=== PATIENT | male | born 1950 | race Caucasian/White ===

== ENCOUNTER 2018-03-31 08:22 | Day surgery (SDC) | payer BC, OTHER ==
--- OUTSIDE RECORDS SUMMARY | 2018-03-31 08:30 | XMS REPORT ---
:1950 Author Organization e[employer] Care Team Providers Name Role Phone [place] Abel Provider Role Unavailable Allergies, Adverse Reactions, Alerts Substance Reaction Event Type N.K.D.A. Info Not Available Non Drug Allergy Problems Problem Type Condition Code Onset Dates Condition Status Problem Right sided sciatica M54.31 Active Problem Osteoarthritis of right knee, M17.11 Active unspecified osteoarthritis type Problem Pain, joint, knee, right M25.561 Active Assessment Osteoarthritis of right knee, M17.11 Active unspecified osteoarthritis type Assessment Right sided sciatica M54.31 Active Assessment Pain, joint, knee, right M25.561 Active Medications Medication Code Code Instructions Start End Status Dosage System Date Date Hydrocodone-Aceta [facility] 95842479475 7.5-325 MG Oral Active (Schedule minophen II Drug) TK 1 T PO TID Methocarbamol [facility] 37287733943 500 MG Oral Active TK 1 T PO BID Telmisartan-HCTZ [facility] 20284983441 80-12.5 MG Active 1 tablet Orally Once a day Gabapentin [facility] 56453772146 800 MG Orally Active 1 tablet Twice a day atorvastatin [facility] 99065483739 20mg Active 1 tablet by mouth at bedtime Bystolic [facility] 99463348521 5 MG Orally Active 1 tablet Once a day Montelukast [facility] 38604188266 10 MG Oral Active TK 1 T PO Sodium QD Levothyroxine [facility] 48798359508 25 MCG Oral Active TK 1 T PO Sodium TWICE WEEKLY. Duloxetine HCl [facility] 29398598892 60 MG Orally Active 1 capsule Once a day Results No Known Results Summary Purpose eClinicalWorks Submission
[2018-03-31 09:31] LABS: MPV 9.6 fL (7.6-11.3)
[2018-03-31 09:33] VITALS: BMI 43.3
[2018-03-31 10:22] LABS: Platelet Estimate ADEQ
--- NOTE | 2018-03-31 11:41 | RAD REPORT ---
EXAM DESCRIPTION: CT - Spine Lumbar Wo Con - 03/31/2018 11:21 am CLINICAL HISTORY: Radiculopathy. M5416 COMPARISON: Spine Lumbar W/Wo Cont dated 10/17/2016; MRI LUMBAR SPINE W O CON dated 10/19/2014; Lumbar Spine Wo Con dated 01/06/2018 TECHNIQUE: Axial noncontrast thin-section this level CT imaging of the lumbar spine was performed wi th coronal and sagittal re-formatted images. Lumbar puncture for intrathecal myelographic contrast in jection is separately reported. All CT scans are performed using dose optimization technique as appropriate and may include automated exposure control or mA/KV adjustment according to patient size. FINDINGS: No acute lumbar spine fracture seen. No aggressive marrow pattern or malalignment. Paraspinal tissues are normal in thickness. No paraspinal abscess or hematoma seen. L1-2: The posterior disc bulge is noted, mild and asymmetric to the left. Mild facet ligamentum flavu m hypertrophy is also present. Spinal central canal narrowing is mild. L2-3: Mild posterior disc bulge with asymmetric right paracentral/foraminal disc protrusion. Facet hy pertrophy is mild bilaterally with evidence of previous right hemilaminectomy. Central canal narrowin g is mild. Mild narrowing the anterior inferior aspect of the exit foramina is seen, greater on the r ight. L3-4: Mild posterior disc bulge is present asymmetric to the left with mild facet and ligamentum flav um hypertrophy. Central canal narrowing is mild to moderate with the thecal sac measuring 8 mm. Moder ate narrowing the anterior inferior aspects of both exit foramina seen. L4-5: Moderate posterior disc bulge with moderate facet and ligamentum flavum hypertrophy. Significan t central canal stenosis is suspected with the AP dimension of the canal measuring 5 mm. Narrowing of the anterior inferior aspects of both exit foramina is noted, mild. L5-S1: Prominent epidural fat is noted with mild central canal narrowing. IMPRESSION: Moderate to severe central canal stenosis at L4-5 suspected. Additional levels of spondylosis are fully detailed above.
--- NOTE | 2018-03-31 11:43 | RAD REPORT ---
EXAM DESCRIPTION: RAD - Myelography Lumbar - 03/31/2018 11:32 am CLINICAL HISTORY: M5416 COMPARISON: L Spine With Bending Views dated 09/04/2016; LUMBAR SPINE 3 VIEWS dated 06/07/2013; SPINE LUMBAR W OBLIQUE dated 11/26/2012; SPINE LUMBAR W OBLIQUE dated 04/16/2010 TECHNIQUE: The procedure, risks and alternatives to the procedure were discussed with the patient in detail. After answering all questions, both oral and written consent were obtained. Time-out procedu re was performed. The patient was placed in an oblique prone position on the fluoroscopic table. The skin of the lower back was prepped and draped in the usual sterile fashion. After anesthetizing the skin and deeper sof t tissues with 1% lidocaine, a 22 gauge needle was advanced into the thecal sac at the L4 level. Approximately 10 cc of Isovue 200M was injected into the subarachnoid space. The patient was then tra nsferred for the CT lumbar spine imaging. Total fluoro time: 2.9 seconds Images obtained: 5 IMPRESSION: Successful fluoroscopic guided lumbar puncture for myelographic contrast injection. CT myelography of the lumbar spine is separately reported.
[2018-03-31] MEDS ORDERED: HYDROCODONE/APAP 7.5/325 MG TAB ONE (12:10)
[2018-03-31 14:07] VITALS: BP 146/76; TEMP 97.3; O2SAT 97
== END 2018-03-31 14:15 | disposition home or self-care (01) ==
LOC: DS 08:22
PROVIDERS: ATTEND Specialist
PROC: B01BYZZ Fluoroscopy of Spinal Cord using Other Contrast (ICD-10-PCS; principal; 2018-03-31)
DX: M54.16 Radiculopathy, lumbar region (principal); I10 Essential (primary) hypertension; Z85.89 Personal history of malignant neoplasm of other organs and systems; M19.90 Unspecified osteoarthritis, unspecified site
CPT/HCPCS: 36415; 62304; 72131; 85049

== ENCOUNTER 2021-10-22 20:43 | Inpatient (IN) | payer OTHER ==
--- OUTSIDE RECORDS SUMMARY | 2021-10-22 20:47 | XMS REPORT | Continuity of Care Document ---
:1950 Author Organization [facility] t Address [address] [place] [address] Care Team Providers Name Role Phone Filipe Attending Clinician Unavailable Problems This patient has no known problems. Allergies, Adverse Reactions, Alerts This patient has no known allergies or adverse reactions. Medications Ordered Filled Start Stop Current Ordering Indication Dosage Frequency Signature Comments Components Source Medication Medication Date Date Medication? Clinician (SIG) Name Name Hydrocodone Hydrocodone Yes Abel (Schedule [facility] -[facility] -Acetaminop [place] [facility]) Sravani laura TK 1 T [facility] Methocarbam Methocarbam Yes Abel TK [address] [facility] [place] B[facility] Telmisartan Telmisartan Yes Abel [address] [facility] -HCTZ -HCTZ [place] [facility] Gabapentin Gabapentin Yes Abel [address] [facility] [place] [facility] atorvastati atorvastati Yes Abel [address] [facility] [place] by mouth [facility] Bystolic Bystolic Yes Abel [address] [place] [facility] Yes Abel TK [address] [facility] Sodium Sodium [place] QD [facility] Levothyroxi Levothyroxi Yes Abel TK [address] [facility] ne Sodium ne Sodium [place] TWICE Diann kes - [facility] Duloxetine Duloxetine Yes Abel [address] [facility] HCl HCl [place] [facility] Procedures This patient has no known procedures. Encounters Start End Encounter Admission Attending Care Care Encounter Source Date/Time Date/Time Type Type Clinicians Facility Department ID 2021-09-18 Outpatient Filipe [facility] [place] [id number] [facility] 2021-09-18 Outpatient Filipe [facility] 12[facility] [place] [id number] [facility] 2021-09-18 Outpatient Filipe [facility] 12[facility] [place] [id number] [facility] 2021-09-18 Outpatient Filipe [facility] 11[facility]58:47 [place] [id number] [facility] 2021-09-18 Outpatient Filipe [facility] [place] [id number] [facility] 2021-09-18 Outpatient Filipe [facility] 11[facility] [place] [id number] [facility] 2021-02-07 2021-02-07 Outpatient [facility] [id number] [facility] 2021-01-31 2021-01-31 Outpatient [facility] [id number] [facility] 2021-01-23 2021-01-23 Outpatient [facility] [id number] [facility] 2020-12-27 2020-12-27 Outpatient [facility] [id number] [facility] 2020-12-27 2020-12-27 Outpatient [facility] [id number] [facility] 2020-12-04 2020-12-04 Outpatient [facility] [id number] [facility] 2020-07-02 2020-07-02 Out[facility] [id number] [facility] 2020-06-18 2020-06-18 Outpatient [facility] [id number] [facility] 2020-06-13 2020-06-13 Outpatient [facility] [id number] [facility] 2018-03-10 2018-03-10 [facility] [id number] [facility] Results This patient has no known results.
[2021-10-22] MEDS ORDERED: NITROGLYCERIN 0.4 MG/TAB SL ONE (21:23)
[2021-10-22 21:45] LABS: Absolute Lymphocytes (CBC) 2.9 K/uL (0.7-4.9); Hematocrit 38.8 % (39.6-49.0); Lymphocytes % 27.8 % (15.3-44.8); MPV 9.1 fL (7.6-11.3); RBC Red Blood Cell Count 4.42 M/uL (4.33-5.43)
[2021-10-22 21:48] LABS: Blood Morphology Comment NOT SEEN (NOT SEEN); Platelet Estimate ADEQ; White Blood Cell Scan OK (OK)
[2021-10-22 21:52] LABS: Protime INR 0.92
--- NOTE | 2021-10-22 21:55 | RAD REPORT ---
EXAM DESCRIPTION: Naif Single View3 9:42 pm CLINICAL HISTORY: Chest pain COMPARISON: 2018 FINDINGS: The lungs appear clear of acute infiltrate. The heart is normal size IMPRESSION: No acute abnormalities displayed
[2021-10-22 22:02] LABS: ALT/SGPT 36 U/L (12-78); Albumin 3.8 g/dL (3.4-5.0); BUN Blood Urea Nitrogen 23 mg/dL (7-18); Bicarbonate 29 mmol/L (21-32); Bilirubin Total 0.6 mg/dL (0.2-1.0); Glucose Level 118 mg/dL (74-106); Lipase 72 U/L (73-393); Protein, Total 7.6 g/dL (6.4-8.2); Sodium Level 137 mmol/L (136-145)
[2021-10-22] MEDS ORDERED: MORPHINE 4 MG/ML SYR ONE (22:02)
[2021-10-22] MEDS ORDERED: MAGNES/ALUMIN/SIMET 30ML UCUP ONE (22:02)
[2021-10-22] MEDS ORDERED: LIDOCAINE VISCOUS 2% SOLN 15 ML UDC ONE (22:02)
[2021-10-22] MEDS ORDERED: ONDANSETRON 4 MG/2 ML VIAL ONE (22:02)
[2021-10-22 22:03] LABS: AST/SGOT 32 U/L (15-37); Bilirubin Direct < 0.1 mg/dL (0-0.2); Magnesium 2.4 mg/dL (1.8-2.4); Potassium 3.2 mmol/L (3.5-5.1)
[2021-10-22 22:07] LABS: Alkaline Phosphatase 53 U/L (45-117); NT PRO-BNP 311 pg/mL (<125)
--- NOTE | 2021-10-22 23:30 | EDPHYS ---
Physician Documentation [facility] Name: Tahir Alexandre Age: 71 yrs Sex: Male : 1950 Arrival Date: 10/22/2021 Time: 20:49 Bed 6 Private MD: ED Physician Carlos Mariee HPI: 10/22 20:57 This 71 yrs old Male presents to ER via Unassigned with complaints of Chest Pain. rn 20:57 The patient or guardian reports chest pain that is located primarily in the substernal rn area, epigastric area. Onset: 2 hour(s) ago. The pain radiates to abdomen. Associated signs and symptoms: Pertinent positives: abdominal pain, diaphoresis, Pertinent negatives: lower extremity pain, lower extremity swelling, syncope, vomiting. The chest pain is described as "pain". Duration: The patient or guardian reports a single episode, that is still ongoing. Modifying factors: The symptoms are alleviated by nothing. the symptoms are aggravated by exertion, sitting up. Severity of pain: At its worst the pain was moderate in the emergency department the pain is unchanged. The patient has not experienced similar symptoms in the past. The patient has not recently seen a physician. REports 2 hours of substernal chest pain, now radiating into upper abdomen, no fever/cough/sob. No vomiting/diarrhea. Loa like gas, took aspirin and gas-x without help so came in. . Historical: - Allergies: 21:18 No Known Allergies; ld1 - Home Meds: 21:20 duloxetine oral [Active]; Hydrocodone-Acetaminophen Oral [Active]; Vascepa oral ld1 [Active]; atorvastatin oral [Active]; gabapentin oral [Active]; Bystolic oral [Active]; telmisartan oral [Active]; levothyroxine oral [Active]; Chlorthalidone Oral [Active]; Methocarbamol Oral [Active]; - PMHx: 21:20 Hypercholesterolemia; Hyperthyroidism; ld1 - PSHx: 21:20 None; ld1 - Immunization history:: Adult Immunizations up to date, Client reports receiving the 2nd dose of the Covid vaccine. - Social history:: Smoking status: Patient denies any tobacco usage or history of. Patient/guardian denies using alcohol. - Family history:: not pertinent. - Hospitalizations: : No recent hospitalization is reported. ROS: 20:57 Constitutional: Negative for fever, chills, and weight loss, Eyes: Negative for injury, rn pain, redness, and discharge, Neck: Negative for injury, pain, and swelling, Cardiovascular: Negative for palpitations, and edema, Respiratory: Negative for shortness of breath, cough, wheezing, and pleuritic chest pain, Abdomen/GI: Negative for nausea, vomiting, diarrhea, and constipation, Back: Negative for injury and pain, : Negative for injury, bleeding, discharge, and swelling, MS/Extremity: Negative for injury and deformity, Skin: Negative for injury, rash, and discoloration, Neuro: Negative for headache, weakness, numbness, tingling, and seizure. Exam: 20:57 Constitutional: This is a well developed, well nourished patient who is awake, alert, rn and in no acute distress. Head/Face: Normocephalic, atraumatic. Eyes: Periorbital areas with no swelling, redness, or edema. Cardiovascular: Regular rate and rhythm. No pulse deficits. Respiratory: No increased work of breathing, no retractions or nasal flaring. Abdomen/GI: soft, mild epigastric tenderness, no rebound Skin: Warm, dry MS/ Extremity: Pulses equal, no cyanosis. Neurovascular intact. Full, normal range of motion. Equal circumference. Neuro: Awake and alert, GCS 15, oriented to person, place, time, and situation. 21:19 ECG was reviewed by the Attending Physician. rn Vital Signs: 21:15 BP 186 / 92; Pulse 59; Resp 15; Temp 98.6(TE); Pulse Ox 97% on R/A; Pain 8/10; ld1 22:07 BP 183 / 87; Pulse 56; Resp 12; Pulse Ox 96% on R/A; ld1 23:10 BP 182 / 73; Pulse 69; Resp 20 S; Pulse Ox 92% on R/A; al4 03/02 01:00 BP 159 / 74; Pulse 60; Resp 18; Pulse Ox 98% ; ll3 MDM: 03 20:49 Patient medically screened. rn 21:38 ED course: NO help from nitro. rn 23:27 Differential diagnosis: acute myocardial infarction, anxiety, coronary artery disease rn chest wall pain, costochondritis, esophagitis, gastritis, gastroesophageal reflux disease (GERD), pleurisy, pneumonia, pneumothorax, stable angina, thoracic aortic disection. Data reviewed: vital signs, nurses notes, lab test result(s), EKG, radiologic studies, CT scan, plain films, and as a result, I will admit patient. Counseling: I had a detailed discussion with the patient and/or guardian regarding: the historical points, exam findings, and any diagnostic results supporting the discharge/admit diagnosis, lab results, radiology results, the need for further work-up and treatment in the hospital. Response to treatment: There is no appreciated change of the patient's symptoms at this time, and as a result, I will admit patient. Admission orders: after a detailed discussion of the patient's condition and case, the admit orders are written by me. ED course: No acute findings in CT chest/abdomen/pelvis, specifically, no aneurysm or dissection, still reports chest pain, will admit for further evaluation.. 10/22 20:57 Order name: Basic Metabolic Panel; Complete Time: 22:15 rn 10/22 20:57 Order name: CBC with Diff; Complete Time: 21:54 rn 10/22 20:57 Order name: LFT's; Complete Time: 22:15 rn 10/22 20:57 Order name: Magnesium; Complete Time: 22:15 rn 10/22 20:57 Order name: NT PRO-BNP; Complete Time: 22:15 rn 10/22 20:57 Order name: PT-INR; Complete Time: 21:54 rn 10/22 20:57 Order name: Troponin HS; Complete Time: 22:15 rn 10/22 20:57 Order name: XRAY Chest (1 view); Complete Time: 22:15 rn 10/22 20:57 Order name: Lipase; Complete Time: 22:15 rn 10/22 20:57 Order name: CT Aorta for Dissection rn 10/22 20:57 Order name: SARS-COV-2 RT PCR (Document "Date of Onset" if Symptomatic); Complete Time: rn :10/22 21:48 Order name: CBC Smear Scan; Complete Time: 21:54 EDNY 10/22 23:48 Order name: US Abdomen Limited: Please eval gallbladder la1 10/22 20:57 Order name: EKG; Complete Time: 20:58 rn 10/22 20:57 Order name: Cardiac monitoring; Complete Time: 21:15 rn 10/22 20:57 Order name: EKG - Nurse/Tech; Complete Time: 21:15 rn 10/22 20:57 Order name: IV Saline Lock; Complete Time: 21:15 rn 10/22 20:57 Order name: Labs collected and sent; Complete Time: 22:24 rn 10/22 20:57 Order name: O2 Per Protocol; Complete Time: 21:15 rn 10/22 20:57 Order name: O2 Sat Monitoring; Complete Time: 21:15 rn 10/23 00:09 Order name: NPO; Complete Time: 00:15 la1 EC: Rate is 64 beats/min. Rhythm is regular. QRS Timber is Normal. MI interval is normal. QRS rn interval is normal. QT interval is normal. No Q waves. T waves are Normal. No ST changes noted. Clinical impression: NSR w/ Non-specific ST/T Changes. Reviewed by me. Administered Medications: 21:25 Drug: Nitroglycerin 0.4 mg Route: Sublingual; al4 21:30 Follow up: Response: No adverse reaction; Pain is unchanged, physician notified al4 22:06 Drug: morphine 4 mg Route: IVP; Site: right wrist; al4 23:00 Follow up: Response: No adverse reaction; RASS: Alert and Calm (0) al4 22:06 Drug: Zofran (Ondansetron) 4 mg Route: IVP; Site: right wrist; al4 23:00 Follow up: Response: No adverse reaction al4 22:07 Drug: GI Cocktail without - (Maalox Suspension 30 ml, Lidocaine Liquid 2 % 15 al4 ml) Route: PO; 23:00 Follow up: Response: No adverse reaction al4 10/23 00:27 Drug: Zosyn (piperacillin-tazobactam) 3.375 grams Route: IVPB; Infused Over: 60 mins; al4 Site: right forearm; 01:41 Follow up: Response: No adverse reaction; IV Status: Completed infusion al4 Disposition Summary: 10/22/21 23:29 Hospitalization Ordered Hospitalization Status: Observation rn Provider: Prince Shanice rn Location: Telemetry/MedSurg (observation) rn Condition: Stable rn Problem: new rn Symptoms: are unchanged rn Bed/Room Type: Standard rn Room Assignment: 223(10/23/21 00:30) padmini Diagnosis - Chest pain, unspecified rn - Abdominal pain, unspecified rn - Other cholelithiasis without obstruction rn Forms: - Medication Reconciliation Form rn - SBAR form rn Signatures: Dispatcher [employer] Bsii Lugo RN RN mw Nieto, Roman, MD MD rn Attema, Lee, [employer]-C [employer]-Cla1 Yumi Zhou RN RN ld1 Chuy Rose Corrections: (The following items were deleted from the chart) 00:30 10/22 23:29 sasha washington
--- NOTE | 2021-10-22 23:30 | ER ---
Nurse's Notes [facility] Name: Tahir Alexandre Age: 71 yrs Sex: Male : 1950 Arrival Date: 10/22/2021 Time: 20:49 Bed 6 Private MD: Diagnosis: Chest pain, unspecified;Abdominal pain, unspecified;Other cholelithiasis without obstruction Presentation: 10/22 21:15 Chief complaint: Patient states: c/o chest pain that began today at 1800 \T\ lower ld1 abdominal pain - thought it might be gas. Pt reports taking gas X and tums today to relieve the pain. Coronavirus screen: At this time, the client does not indicate any symptoms associated with coronavirus-19. Ebola Screen: No symptoms or risks identified at this time. Initial Sepsis Screen: Does the patient meet any 2 criteria? No. Patient's initial sepsis screen is negative. Does the patient have a suspected source of infection? No. Patient's initial sepsis screen is negative. Risk Assessment: Do you want to hurt yourself or someone else? Patient reports no desire to harm self or others. Onset of symptoms was October 22, 2021. 21:15 Method Of Arrival: Ambulatory ld1 21:15 Acuity: SHARLENE 3 ld1 Triage Assessment: 21:20 General: Appears in no apparent distress. uncomfortable, Behavior is cooperative, ld1 appropriate for age, anxious. Pain: Complains of pain in chest and suprapubic area Pain does not radiate. Pain currently is 9 out of 10 on a pain scale. Quality of pain is described as throbbing, Pain began gradually, Is intermittent. EENT: No signs and/or symptoms were reported regarding the EENT system. Neuro: Level of Consciousness is awake, alert, obeys commands, Oriented to person, place, time, situation, Appropriate for age. Cardiovascular: Capillary refill < 3 seconds Patient's skin is warm and dry. Cardiovascular: Rhythm is sinus rhythm. Respiratory: Airway is patent Respiratory effort is even, unlabored. GI: Abdomen is round non-distended. : No signs and/or symptoms were reported regarding the genitourinary system. Derm: No signs and/or symptoms reported regarding the dermatologic system. Musculoskeletal: Reports pain in chest. Historical: - Allergies: 21:18 No Known Allergies; ld1 - Home Meds: 21:20 duloxetine oral [Active]; Hydrocodone-Acetaminophen Oral [Active]; Vascepa oral ld1 [Active]; atorvastatin oral [Active]; gabapentin oral [Active]; Bystolic oral [Active]; telmisartan oral [Active]; levothyroxine oral [Active]; Chlorthalidone Oral [Active]; Methocarbamol Oral [Active]; - PMHx: 21:20 Hypercholesterolemia; Hyperthyroidism; ld1 - PSHx: 21:20 None; ld1 - Immunization history:: Adult Immunizations up to date, Client reports receiving the 2nd dose of the Covid vaccine. - Social history:: Smoking status: Patient denies any tobacco usage or history of. Patient/guardian denies using alcohol. - Family history:: not pertinent. - Hospitalizations: : No recent hospitalization is reported. Screenin:24 Abuse screen: Denies threats or abuse. Denies injuries from another. Nutritional ld1 screening: No deficits noted. Tuberculosis screening: No symptoms or risk factors identified. Fall Risk None identified. Assessment: 21:24 Pain: Complains of pain in chest Pain radiates to abdomen Pain currently is 9 out of 10 ld1 on a pain scale. Neuro: Level of Consciousness is awake, alert, obeys commands. Respiratory: Airway is patent Respiratory effort is even, unlabored. 21:24 Reassessment: See triage assessment. ld1 22:07 Reassessment: Patient appears in no apparent distress at this time. No changes from ld1 previously documented assessment. 22:20 General: Appears in no apparent distress. uncomfortable, Behavior is calm, cooperative. al4 Pain: Complains of pain in chest Pain began when he laid down for bed. Neuro: Level of Consciousness is awake, alert, obeys commands. Cardiovascular: Capillary refill < 3 seconds Patient's skin is warm and dry. Respiratory: Airway is patent Respiratory effort is unlabored, Respiratory pattern is regular. GI: Reports gas. Musculoskeletal: Range of motion: intact in all extremities. 23:07 Reassessment: Patient is alert, oriented x 3, equal unlabored respirations, skin al4 warm/dry/pink. 23:10 Reassessment: ERP gave permission for patient to have a few ice chips. al4 10/23 00:21 Reassessment: ERP gave permission for patient to go to restroom by wheelchair with al4 assistance. 00:22 Reassessment: ERP said no when asked if blood cultures needed to be drawn before al4 starting the ordered antibiotic. 01:00 Reassessment: Patient is alert, oriented x 3, equal unlabored respirations, skin al4 warm/dry/pink. Vital Signs: 10/22 21:15 BP 186 / 92; Pulse 59; Resp 15; Temp 98.6(TE); Pulse Ox 97% on R/A; Pain 8/10; ld1 22:07 BP 183 / 87; Pulse 56; Resp 12; Pulse Ox 96% on R/A; ld1 23:10 BP 182 / 73; Pulse 69; Resp 20 S; Pulse Ox 92% on R/A; al4 10/23 01:00 BP 159 / 74; Pulse 60; Resp 18; Pulse Ox 98% ; ll3 ED Course: 10/22 20:49 Patient arrived in ED. ja2 20:49 Carlos Mariee MD is Attending Physician. rn 21:15 Yumi Zhou RN is Primary Nurse. ld1 21:18 Triage completed. ld1 21:20 Arm band placed on right wrist. ld1 21:24 Patient has correct armband on for positive identification. Placed in gown. Bed in low ld1 position. Call light in reach. Side rails up X2. mail processor on. Pulse ox on. NIBP on. Door closed. Noise minimized. Warm blanket given. 21:24 No provider procedures requiring assistance completed. Missed attempt(s): 20 gauge in ld1 right forearm. Patient maintains SpO2 saturation greater than 95% on room air. 21:42 XRAY Chest (1 view) In Process Unspecified. EDMS 22:19 Inserted saline lock: 20 gauge in right forearm, using aseptic technique. ,using al4 aseptic technique. by NEGAR Eason. 22:40 CT Aorta for Dissection In Process Unspecified. EDMS 23:29 Prince Prasad MD is Hospitalizing Provider. rn 10/23 01:38 Patient admitted, IV remains in place. al4 Administered Medications: 10/22 21:25 Drug: Nitroglycerin 0.4 mg Route: Sublingual; al4 21:30 Follow up: Response: No adverse reaction; Pain is unchanged, physician notified al4 22:06 Drug: morphine 4 mg Route: IVP; Site: right wrist; al4 23:00 Follow up: Response: No adverse reaction; RASS: Alert and Calm (0) al4 22:06 Drug: Zofran (Ondansetron) 4 mg Route: IVP; Site: right wrist; al4 23:00 Follow up: Response: No adverse reaction al4 22:07 Drug: GI Cocktail without - (Maalox Suspension 30 ml, Lidocaine Liquid 2 % 15 al4 ml) Route: PO; 23:00 Follow up: Response: No adverse reaction al4 10/23 00:27 Drug: Zosyn (piperacillin-tazobactam) 3.375 grams Route: IVPB; Infused Over: 60 mins; al4 Site: right forearm; 01:41 Follow up: Response: No adverse reaction; IV Status: Completed infusion al4 Outcome: 10/22 23:29 Decision to Hospitalize by Provider. negar 10/23 01:37 Admitted to Med/surg accompanied by tech, room 223, Report called to NEGAR Trent by al4 NEGAR Wagoner Condition: stable Instructed on the need for admit, Demonstrated understanding of instructions. 01:40 Patient left the ED. al4 Signatures: Dispatcher [employer] EDMS Carlos Mariee MD MD rn Dibbern, Lauren, RN RN Zohreh Tinajero Lynsea, RN RN ll3 Chuy Rose4
--- NOTE | 2021-10-23 00:20 | P.HP ---
Certification for Inpatient Patient admitted to: Observation With expected LOS: <2 Midnights Patient will require the following post-hospital care: None Practitioner: I am a practitioner with admitting privileges, knowledge of patient current condition, hospital course, and medical plan of care. Services: Services provided to patient in accordance with Admission requirements found in Title 42 Section 412.3 of the Code of Federal Regulations Patient History Date of Service: 10/23/21 Reason for admission: Chest/epigastric pain History of Present Illness: 71-year-old male with history of hypertension, hyperlipidemia presents the emergency department for chest/epigastric pain. Patient reports pain began this evening around 630, reports he did have some cereal around 6 PM. Pain is radiating to the abdomen. Patient was evaluated in the emergency department his labs were significant for white blood cell count 10.4 hemoglobin 13.3 hematocrit 38.8 potassium 3.2 BNP [address] dissection protocol negative for any acute findings chest x-ray unremarkable abdominal ultrasound performed demonstrates small stone near the neck of the gallbladder with small amount of wall thickening. No pericholecystic fluid, CBD normal diameter. ED provider wishes to admit for further evaluation management epigastric/chest pain possible cholecystitis. Allergies No Known Allergies Allergy (Unverified 06/05/12 12:19) Home Medications: Atorvastatin Calcium 10 mg PO DAILY 03/31/18 Duloxetine HCl 60 mg PO DAILY 03/31/18 Gabapentin [Neurontin] 800 mg PO TID 03/31/18 Hydrocodone Bit/Acetaminophen [Hydrocodon-Acetaminoph 7.5-325] 1 tab PO TID 03/31/18 Levothyroxine [Synthroid*] 1 tab PO DAILY 03/31/18 Methocarbamol 500 mg PO BID 03/31/18 Montelukast [Singulair*] 10 mg PO DAILY 03/31/18 Nebivolol HCl [Bystolic*] 5 mg PO DAILY 03/31/18 Telmisartan/Hydrochlorothiazid [Telmisartan-Hctz 80-12.5 mg Tb] 1 tab PO DAILY 03/31/18 - Past Medical/Surgical History -: Hypertension -: Hyperlipidemia -: Neuropathy -: Laminectomy -: Carpal tunnel -: hernia repair Psychosocial/ Personal History: Patient lives at home with his - Family History Mother -: Cancer - Social History Smoking Status: Never smoker Alcohol use: No CD- Drugs: No Caffeine use: Yes Place of Residence: Home Review of Systems 10-point ROS is otherwise unremarkable Cardiovascular: Chest Pain Gastrointestinal: Abdominal Pain, As per HPI Physical Examination - Physical Exam General: Alert, In no apparent distress, Oriented x3, Obese HEENT: Atraumatic, PERRLA, Mucous membr. moist/pink, EOMI, Sclerae nonicteric Neck: Supple, 2+ carotid pulse no bruit, No LAD, Without JVD or thyroid abnormality Respiratory: Clear to auscultation bilaterally, Normal air movement Cardiovascular: Regular rate/rhythm, Normal S1 S2 Capillary refill: <2 Seconds Gastrointestinal: Normal bowel sounds, No rebound, No guarding, Tenderness (Mild epigastric, right upper quadrant tenderness) Musculoskeletal: No tenderness Integumentary: No rashes Neurological: Normal speech, Normal strength at 5/5 x4 extr, Normal tone, Normal affect Lymphatics: No axilla or inguinal lymphadenopathy - Studies Laboratory Data (last 24 hrs) 10/22/21 21:29: PT 10.6, INR 0.92 10/22/21 21:29: WBC 10.40, Hgb 13.3 L, Hct 38.8 L, Plt Count 204 10/22/21 21:29: Sodium 137, Potassium 3.2 L, BUN 23 H, Creatinine 1.20, Glucose 118 H, Magnesium 2.4, Total Bilirubin 0.6, AST 32, ALT 36, Alkaline Phosphatase 53, Lipase 72 L Assessment and Plan - Plan Assessment: Chest/epigastric pain suspect cholecystitis Rule out ACS Hypertension Hyperlipidemia Neuropathy Plan: Chest/epigastric pain suspect cholecystitis: N.p.o., IVF, Zosyn, general surgery consult in place. We will also trend troponin. Pain seems more likely to be related to suspected acute cholecystitis given epigastric tenderness and most the pain in the epigastric region. Rule out ACS: Initial troponin negative will repeat x2 CT dissection protocol negative for other acute findings. Hypertension: Obtain and continue home medications when appropriate Hyperlipidemia:Obtain and continue home medications when appropriate Neuropathy:Obtain and continue home medications when appropriate DVT PPX: SCD Code status: Full Discharge Plan: Home Plan to discharge in: 24 Hours - Advance Directives Does patient have a Living Will: No Does patient have a Durable POA for Healthcare: No - Code Status/Comfort Care Code Status Assessed: Yes (Full) Critical Care: No Time Spent Managing Pts Care (In Minutes): 55
[2021-10-23] MEDS ORDERED: PIPERACIL/TAZO 3.375 GM VIAL IV ONE (00:21)
[2021-10-23] MEDS ORDERED: NA CHLORIDE 0.9% 100 ML IV ONE (00:22)
[2021-10-23] MEDS ORDERED: SODIUM CHLORIDE 0.9% 10ML INJ IV PRN (01:47)
[2021-10-23] MEDS ORDERED: ONDANSETRON 4 MG/2 ML VIAL IV PRN (01:47)
[2021-10-23] MEDS: PIPER TAZO 3.375 GM in NA CHLORIDE 0.9% 100 ML IV SCH ×3 (01:47→17:05)
[2021-10-23] MEDS ORDERED: MORPHINE 4 MG/ML SYR IV PRN (01:56)
[2021-10-23] MEDS: D5 0.45 NS 1,000 ML IV SCH ×3 (02:22→15:07)
[2021-10-23] MEDS: KCL 20 MEQ/100 mL IVPB 20 MEQ/100 ML BAG IV SCH ×2 (02:22→04:34)
[2021-10-23] MEDS ORDERED: HYDROMORPHONE HCL 0.5 MG/0.5 ML INJ IV ONE ×2 (03:14→05:58)
[2021-10-23 03:32] VITALS: BMI 45.0
[2021-10-23 06:54] LABS: Absolute Lymphocytes (CBC) 1.1 K/uL (0.7-4.9); Hematocrit 39.6 % (39.6-49.0); MPV 8.5 fL (7.6-11.3); RBC Red Blood Cell Count 4.49 M/uL (4.33-5.43)
[2021-10-23 07:13] LABS: Albumin 3.8 g/dL (3.4-5.0); Bilirubin Total 0.9 mg/dL (0.2-1.0); Potassium 3.8 mmol/L (3.5-5.1); Protein, Total 7.7 g/dL (6.4-8.2); Troponin High Sensitivity 11.1 pg/mL (<58.9)
--- NOTE | 2021-10-23 07:42 | RAD REPORT ---
EXAM DESCRIPTION: US - Abdomen Exam Limited - 10/23/2021 12:11 am CLINICAL HISTORY: ABD PAIN COMPARISON: Small Bowel Series dated 09/13/2018; Angio Aorta For Dissection dated 10/22/2021 FINDINGS: The gallbladder demonstrates a tiny gallstone borderline thickening of the gallbladder wal l measuring 4 millimeters. The common bile duct is normal measuring 3 mm. The liver demonstrates no findings of intrahepatic biliary dilatation. IMPRESSION: Cholelithiasis with mild gallbladder wall thickening is nonspecific. No definite evidenc e of cholecystitis. If there is persistent clinical concern, could consider a HIDA scan.
[2021-10-23] MEDS: PANTOPRAZOLE 40 MG INJ IVP SCH ×2 (09:15→21:15)
[2021-10-23] MEDS: HYDROMORPHONE HCL 0.5 MG/0.5 ML INJ IV PRN ×3 (09:16→22:26)
--- NOTE | 2021-10-23 11:07 | EKG ---
Test Date: 2021-10-22 Test Time: 20:59:10 Noc Engineer: MEASUREMENT RESULTS: Intervals: Rate: 64 GA: 182 QRSD: 86 QT: 458 QTc: 472 Rosie: P: 53 GA: 182 QRS: 61 T: 68 INTERPRETIVE STATEMENTS: Normal sinus rhythm Cannot rule out Anterior infarct, age undetermined Abnormal ECG Compared to ECG 06/05/2012 15:06:39 Myocardial infarct finding now present Electronically Signed On 10-23-21 11:07:04 HEAD ATHLETIC TRAINER/STRENGTH COACH by Sarkis Downey
--- NOTE | 2021-10-23 11:07 | EKG ---
Test Date: 2021-10-22 Test Time: 21:10:00 Electrical Prospecting Engineer: ALIREZA MEASUREMENT RESULTS: Intervals: Rate: 62 WV: 164 QRSD: 88 QT: 470 QTc: 477 Mcconnell: P: 56 WV: 164 QRS: 57 T: 71 INTERPRETIVE STATEMENTS: Normal sinus rhythm Cannot rule out Anterior infarct, age undetermined Abnormal ECG Compared to ECG 10/22/2021 20:59:10 No significant changes Electronically Signed On 10-23-21 11:07:03 ENGRAVER AUTOMATIC by Sarkis Downey
--- NOTE | 2021-10-23 11:32 | RAD REPORT ---
EXAM DESCRIPTION: CT - Angio Aorta For Dissection - 10/23/2021 6:31 am CLINICAL HISTORY: Abd pain;Chest pain COMPARISON: None. TECHNIQUE: CT CHEST ABDOMEN PELVIS ANGIOGRAPHY WITH IV CONTRAST on 10/22/2021 8:57 PM DATA ADMINISTRATOR. MIPS recons tructions were generated. This exam was performed according to our departmental dose-optimization program, which includes autom ated exposure control, adjustment of the mA and/or kV according to patient size and/or use of iterati ve reconstruction technique. FINDINGS: Vascular: Thoracic aorta is normal in course and caliber without aneurysm or dissection. P ulmonary arteries are adequately opacified without acute or chronic filling defects. Abdominal aorta is normal in course and caliber without aneurysm. Pelvic arteries are patent without aneurysm or occl usion. Chest: The heart is normal in size. There is no pericardial effusion. Intrathoracic lymph nodes are n ot enlarged. There is no pleural effusion, pleural thickening or pneumothorax. Central airways are patent. Lungs a re clear with no consolidation, mass or interstitial lung disease. Abdomen: There is a tiny cyst in the upper aspect of the right lobe of the liver. There is no biliary dilatation. Gallbladder is normal in appearance. Stomach is distended with fluid. The pancreas and s pleen are normal in appearance. Adrenal glands are normal. Kidneys are mildly atrophic. There is no free air. There is no retroperitoneal adenopathy. Pelvis: There is mild left colonic diverticulosis. The urinary bladder is grossly distended and is lo bulated, measuring 21.5 cm in greatest dimension. There is no free fluid. There is a small fat-contai brian right inguinal hernia. Appendix is normal. Skeleton: There are no acute osseous findings. No suspicious bony lesions. IMPRESSION: No aortic dissection or aneurysm. No pulmonary embolus. No pneumonia. Distended urinary bladder. Electronically signed by: Shayne Justice MD 10/22/2021 11:18 PM DATA ADMINISTRATOR Due to temporary technical issues with the PACS/Fluency reporting system, reports are being signed by the in house radiologist without review as a courtesy to ensure prompt reporting. The interpreting r adiologist is fully responsible for the content of the report.
--- NOTE | 2021-10-23 12:28 | CON ---
Date of Consultation: 10/23/2021 Brief History Of Present Illness: The patient is a 71-year-old male with history of hypert ension, hyperlipidemia, who presents to the Emergency Department with complaints of retrosternal ches t pain. He states that the pain began approximately 6:30 p.m. and was constant. He said he ate cere al about the same time that the pain began, but it had gotten severe, substernal, crushing chest pain , and ultimately when the pain with this at worst, he felt radiation and enlargement of the pain to i nclude the epigastric area. There was no other radiation to his back or to his right or left lower q uadrants. He has never had similar episodes before or in the past. The pain was only alleviated by significant pain medication administration in the ER. He has not had any surgical history other than hernia surgery before or in the past with respect to abdominal surgery. He currently feels signific antly improved. He had minimal nausea when the pain was severe, but he believes this is related to t he pain. He had no vomiting. No change in bowel or bladder habits. Again, he has never had similar episodes before or in the past. No sick contacts. No recent travel. No food exposures he is aware of. Allergies: NO KNOWN DRUG ALLERGIES. Home Medications: Include atorvastatin, duloxetine, Neurontin, hydrocodone, Synthroid, methocarbamol , Singulair, Bystolic, telmisartan. Past Medical History: Significant for hypertension, hyperlipidemia, neuropathy. Past Surgical History: Includes laminectomy, carpal tunnel surgery and inguinal hernia surgery as a child he believes. Social History: He lives at home with . He denies smoking, alcohol, recreational drug use. Review of Systems: Ten-point review of systems other than HPI, denies. Physical Examination: Vital Signs: Blood pressure was 120/53, pulse 68, respiratory rate 18, temperature 97.3, SpO2 96% on room air. General: At the time of my examination; he is awake, alert, and oriented. Psychiatric: He is appropriate, conversive. HEENT: Otherwise normocephalic. His sclerae were anicteric. His mucous membranes are moist. Oroph arynx is clear. Neck: Supple without JVD. Chest: Normal expansion and excursion. Cardiovascular: Regular rate and rhythm. Pulmonary: Clear to auscultation bilaterally. Abdomen: Soft, nontender, nondistended. No rebound. No guarding. No focal peritonitis. Cai si gn was negative. Extremities: No clubbing, cyanosis, or edema. Skin: Warm and dry. Laboratory Data: Laboratory exam was performed. Laboratory exam reveals a white blood cell count of 15.1, hemoglobin was 13.3, hematocrit 39.6, platelet count was 213. His neutrophils were 83%. His sodium 135, potassium 3.8, chloride 99, carbon dioxide 30, BUN 18, creatinine 1.17. His glucose was 152. ProBNP was 311. Lipase was 72. COVID was negative. He had imaging performed, which included an ultrasound which showed cholelithiasis with mild gallbladder wall thickening, nonspecific. No def initive evidence of cholecystitis, consider HIDA scan. He additionally had a CT scan dissection prot ocol on admission, officially read. CT dissection protocol negative for any acute findings. Chest x -ray unremarkable. Abdominal ultrasound performed as described. I am unable to get the official dic tation as the computer system is unable to pull the CT dissection protocol, but there were no finding s on the biliary system and no acute dissection described. Assessment And Plan: This is a 71-year-old male, who comes in with substernal chest pain, currently retrosternal. 1.Medical management. 2.Recommend Cardiology consultation and cardiovascular evaluation prior to any consideration for julissa gical intervention. 3.Should the patient's cardiac status be normal, we will get HIDA scan at that point to see if the p atient's pain is likely due to a possible biliary/cholecystitis picture. I have explained the risks, benefits, and alternatives of the above stated plan. The patient agrees to proceed as indicated. 4.N.p.o. status to continue. JONI/POLO Voice ID: [id number] Report ID: [id number]
[2021-10-23 13:30] LABS: Potassium 3.4 mmol/L (3.5-5.1)
[2021-10-23 18:11] LABS: Urine Appearance CLEAR (Clear); Urine Bilirubin NEGATIVE (Negative); Urine Blood NEGATIVE (Negative); Urine Color YELLOW (Yellow); Urine Glucose NEGATIVE (Negative); Urine Protein 1+ (Negative); Urine Specific Gravity >=1.030 (1.005-1.030); Urine Urobilinogen 0.2 mg/dL (0.2-1.0); Urine pH 6.5 (5.0-7.0)
[2021-10-23 18:20] LABS: Urine Microscopic Reflex ORDER UMIC
[2021-10-23 18:34] LABS: Urine Bacteria <20 /HPF (NONE SEEN); Urine RBC <5 /HPF (NONE SEEN)
[2021-10-23] MEDS ORDERED: ACETAMINOPHEN 500 MG TAB PO ONE (21:10)
[2021-10-24] MEDS: PIPER TAZO 3.375 GM in NA CHLORIDE 0.9% 100 ML IV SCH ×3 (00:02→18:03)
[2021-10-24 06:08] LABS: Absolute Lymphocytes (CBC) 1.2 K/uL (0.7-4.9); Hematocrit 35.4 % (39.6-49.0); Lymphocytes % 7.7 % (15.3-44.8); MPV 8.3 fL (7.6-11.3); RBC Red Blood Cell Count 4.02 M/uL (4.33-5.43)
[2021-10-24 06:26] LABS: Albumin 3.3 g/dL (3.4-5.0); Bilirubin Total 1.7 mg/dL (0.2-1.0); Potassium 3.2 mmol/L (3.5-5.1)
[2021-10-24] MEDS: LEVOTHYROXINE SOD 0.1 MG TAB PO SCH (07:30)
[2021-10-24] MEDS: icosapent ethyL 1 GM CAP PO SCH (09:00)
[2021-10-24] MEDS: NEBIVOLOL HCL 5 MG TAB PO SCH (09:00)
[2021-10-24] MEDS: GABAPENTIN 400 MG CAP PO SCH ×3 (09:00→20:22)
[2021-10-24] MEDS: methocarbamoL 500 MG TAB PO SCH ×2 (09:00→20:24)
[2021-10-24] MEDS ORDERED: POTASSIUM CL SA 10 MEQ TAB PO ONE ×2 (09:00→22:23)
[2021-10-24] MEDS: DULOXETINE 30 MG CAP PO SCH (09:00)
[2021-10-24] MEDS: HYDROCODONE/APAP 7.5/325 MG TAB PO SCH ×3 (09:00→20:22)
[2021-10-24] MEDS: PANTOPRAZOLE 40 MG INJ IVP SCH ×2 (09:00→20:24)
--- NOTE | 2021-10-24 09:46 | RAD REPORT ---
EXAM DESCRIPTION: NM - Hepatobiliary System Imagin - 10/24/2021 9:32 am CLINICAL HISTORY: chest pain, gallbladder stone COMPARISON: Abdomen Exam Limited dated 10/23/2021 TECHNIQUE: The patient was administered approximately 7 mCi Tc99m Choletec. Imaging of the right upp er quadrant was performed initially for up to 60 minutes. The patient refused to continue the study. FINDINGS: Normal hepatic uptake and excretion with appropriate clearance of background blood pool ac tivity. Normal visualization of biliary and small bowel activity. The gallbladder is not visualized within the initial imaging period. The patient refused to continue the study. IMPRESSION: Patient cystic duct and patent sphincter of Oddi. The gallbladder is not visualized with in the initial imaging period. The patient refused to continue the examination. No CCK was administered.
[2021-10-24] MEDS ORDERED: FENTANYL CITR 100 MCG/2 ML ONE (10:10)
[2021-10-24] MEDS ORDERED: propofoL 200 MG/20 ML VIAL IV ONE (10:10)
[2021-10-24] MEDS ORDERED: LIDOCAINE 1% MPF 5 ML VIAL ONE (10:10)
[2021-10-24] MEDS ORDERED: MIDAZOLAM HCL 2 MG/2 ML INJ ONE (10:10)
[2021-10-24] MEDS ORDERED: ONDANSETRON 4 MG/2 ML VIAL ONE (10:13)
[2021-10-24] MEDS ORDERED: ROCURONIUM 50 MG/5 ML VIAL IV ONE (10:13)
[2021-10-24] MEDS: BUPIVACAINE 0.25% PF 10 ML VIAL ONE ×2 (10:29→11:21)
[2021-10-24] MEDS: Ringers Lactate 1,000 ML IV ONE ×2 (10:49→11:16)
[2021-10-24] MEDS ORDERED: EPHEDRINE SULF 50 MG/ML VIAL ONE (11:39)
[2021-10-24] MEDS ORDERED: Ringers Lactate 1,000 ML IV ONE (12:37)
[2021-10-24] MEDS ORDERED: MORPHINE 10 MG/ML VIAL ONE (12:40)
[2021-10-24] MEDS ORDERED: KETOROLAC 30 MG/ML INJ ONE (13:02)
--- NOTE | 2021-10-24 13:02 | P.OP ---
Preoperative diagnosis: Acute Cholecystitis Postoperative diagnosis: Acute Gangrenous Cholecystitis Primary procedure: Laparoscopic subtotal cholecystectomy Secondary procedure: Indocyanin Green intraoperative cholangiography Anesthesia: GETA + Local Estimated blood loss: <10cc Specimen: gallbladder Findings: gangrenous changes, Complications: None Drain(s): GINNY drain (10 mm Flat GINNY) Implants: Amaya clotting powder Transferred to: Recovery Room Condition: Good
[2021-10-24] MEDS ORDERED: POTASSIUM 25 MEQ EFFERV TAB PO ONE (15:00)
--- NOTE | 2021-10-24 15:07 | P.PN ---
Subjective Date of Service: 10/24/21 Chief Complaint: Chest/epigastric pain Subjective: Improving, Other (Patient could not tolerate HIDA scan. He was taken straight to the OR for lap emelyn.) Physical Examination - Vital Signs Temperature: 98.5 F Blood Pressure: 104/45 Pulse: 85 Respirations: 16 Pulse Ox (%): 92 - Physical Exam General: In no apparent distress, Cooperative, Other HEENT: Atraumatic, Normocephalic Musculoskeletal: No clubbing, No swelling, No contractures, No erythema Neurological: Normal speech, Normal affect Assessment And Plan - Current Problems (Diagnosis) (1) Abdominal pain Current Visit: Yes Status: Acute (2) Chest pain Current Visit: Yes Status: Acute Physician Review Additional Text: 10/24/21 15:05 Assessment Patient is a 71-year-old male with history of hypertension, hyperlipidemia. He presented to the ER with epigastric and thoracic chest pain. His ACS work-up was unremarkable. His troponins were negative. Was seen by general surgery due to concern of possible cholecystitis on abdominal imaging. He underwent a laparoscopic cholecystectomy on 10/24. Abdominal pain chest pain cholelithiasis/cholecystitis morbid obesity plan: Multimodal pain regimen continue Zosyn. WBC is still elevated repeat CBC tomorrow We will monitor patient overnight and possible discharge tomorrow antibiotics duration as per general surgery
[2021-10-24] MEDS: D5 0.45 NS 1,000 ML IV SCH ×2 (17:47)
[2021-10-24] MEDS: ATORVASTATIN 20 MG TAB PO SCH (20:22)
--- NOTE | 2021-10-24 23:36 | OP ---
Date of Procedure: 10/24/2021 Surgeon: Carlos Constantino MD, Preoperative Diagnosis: Acute cholecystitis. Postoperative Diagnosis: Acute gangrenous cholecystitis. Procedure: 1.Laparoscopic subtotal cholecystectomy. 2.Indocyanine green intraoperative cholangiography. Anesthesia: General endotracheal plus local with 0.25% Marcaine. Estimated Blood Loss: Less than 10 mL. Specimen: Gallbladder. Findings: 1.Gangrenous cholecystitis. 2.Indocyanine green did not enter the gallbladder and the cystic duct was not visualized despite ove r an hour of waiting for ICG permeation. However, the liver was well perfused and the intestines wer e lit up with ICG upon examination. Complications: None. Drains: A 10 mm flat GINNY drain in the subhepatic space. Implants: Amaya clotting powder sprayed in the subhepatic space. Disposition: The patient was transferred to recovery room in good condition. Procedure In Detail: After informed was obtained, the patient was brought to the operating room, pre pped and draped in the usual sterile fashion. After adequate anesthesia achieved, the supraumbilical area was anesthetized with 0.25% Marcaine and sharply incised. A 5 mm trocar was placed under direc t visualization without complication. There was no injury to vital structures upon entry into the ab domen. The abdomen was insufflated to 15 mmHg. I then placed 3 additional trocars, 1 in the epigast rium and 2 in the right upper quadrant. These are similarly anesthetized and sharply incised. A 5 m m trocar was placed under direct visualization without complication. The umbilical trocar was then u psized to a 12 mm under direct visualization without complication. The patient positioned in head up , right side up position. The gallbladder found to be completely encased in omentum. There were asiya e bilious material in the subhepatic space consistent with a perforation of the gallbladder. I sucti oned out this material. Attempts to grasp the gallbladder were unsuccessful. The liver was found to be quite high under the ribcage, making visualization difficult as there was a very small access for visualization of the gallbladder. The gallbladder could not be grasped and as such a decompression needle was brought in and placed in the fundus of the gallbladder. The gallbladder was decompressed at this time. At this point, I then placed a ratcheted grasper on the fundus of the gallbladder and placed it towards the patient's right shoulder. Dissection continued down to remove the firm adhesio ns off the anterior surface of the gallbladder using a combination of blunt dissection as well as maya ctrocautery. After this was done, a large inflammatory thickened rind was noted over the gallbladder . I attempted indocyanine green visualization. The gallbladder had no visualization of the indocyan ine green despite multiple attempts throughout the procedure, which was well over an hour post inject ion of ICG. I saw what appeared to be evidence of common duct near the hilar plate. However, it was faint at best as the patient has significant inflammatory changes and significant adiposity obscurin g the view of the indocyanine green. As such using careful dissection, I opened up the inflammatory rind near the Josh's pouch in the gallbladder. I dissected circumferentially around and found 2 structures, however, 1 structure appeared to be the gallbladder, which continued to go deeper towards the common duct junction where significant inflammatory changes and scarring was evident. However, I was able to visualize the cystic artery at this point, crossing over the top of the gallbladder rashad ction. At this point, I skeletonized the cystic artery and placed double titanium clips on the proxi mal side and on the distal side of the cystic artery and ligated the structure with Endo Kati. At this point, careful dissection was performed to which point, I felt that a safe continued dissection could not be achieved despite multiple blunt dissection attempts and using suction, irrigation, manip ulation. I felt that the gallbladder was gangrenous and friable, tearing quite easily and as such I felt that it would be dangerous to continue to proceed as there might be a common duct injury. At th is point, I encircled the distal aspect of the gallbladder near the Josh's pouch using gentle primitivo nt dissection circumferentially around. I then placed clips across this distal aspect of the gallbla dder and ligated the gallbladder at the Josh's pouch, near the cystic duct gallbladder junction, leaving a small residual stump of gallbladder at this point. I then ligated this using Endo Kati. At this point, I then placed an additional clip at this junction and placed an Endoloop of Vicryl ar ound the distal aspect of the stump and secured it at this point. Indocyanine green was utilized aga in and I saw no visualization of the normal anatomic structures at this point. I then opted to remov e the gallbladder from the subhepatic space and the gallbladder fossa, placed it in EndoCatch bag, an d removed through the umbilical trocar. I irrigated the area copiously. Good hemostasis was achieve d without any additional hemostatic maneuvers. However, due to the significant gangrenous change to the gallbladder, I opted to do 2 additional measures and that was to spray Amaya into the subhepatic space as well as to place a 10 mm flat GINNY drain brought out through the most lateral right abdominal trocar. This was brought in and the 10 mm GINNY was placed in the subhepatic space. No hemostatic josh sures were required and the trocar was removed and the drain secured to the skin at this point. I di d not appreciate any spillage of bile at this point, at the end of the procedure and had the drain si tting right next to the cystic duct junction. No hemostatic measures were required as well. At this point, I opted to place the patient back in a neutral position. I irrigated the area copiously and then repositioned it multiple times in head up position and inspected for any leakage of bile or bloo d, which was not appreciated throughout. I irrigated and suctioned out the abdomen until completely clear. Irrigation was suctioned out. The patient was positioned back into neutral position and the umbilical trocar site was closed using a Juan-Alysha suture passer with 0 Vicryl in interrupted f ashion with good approximation of tissues. The remaining trocars were then removed under direct visu alization without evidence of complication. All skin incisions were copiously irrigated and closed w ith a 4-0 Monocryl in a running fashion and Dermabond was placed on top. The patient tolerated the p rocedure without evidence of complication and transferred back in good condition. All counts were correct at the end of the case. TK/MODL Voice ID: [id number] Report ID: [id number]
[2021-10-25] MEDS: D5 0.45 NS 1,000 ML IV SCH ×2 (00:29→22:04)
[2021-10-25] MEDS: PIPER TAZO 3.375 GM in NA CHLORIDE 0.9% 100 ML IV SCH ×3 (00:30→17:03)
[2021-10-25] MEDS: LEVOTHYROXINE SOD 0.1 MG TAB PO SCH (05:44)
[2021-10-25 06:36] LABS: Hematocrit 31.8 % (39.6-49.0); Lymphocytes % 10.4 % (15.3-44.8); MPV 8.7 fL (7.6-11.3); RBC Red Blood Cell Count 3.55 M/uL (4.33-5.43)
[2021-10-25 06:51] LABS: Albumin 2.6 g/dL (3.4-5.0); Potassium 3.4 mmol/L (3.5-5.1)
--- NOTE | 2021-10-25 08:58 | P.PN ---
Subjective Date of Service: 10/25/21 Chief Complaint: Chest/epigastric pain Subjective: Improving (Patient feels much better.) Physical Examination - Vital Signs Temperature: 97.5 F Blood Pressure: 121/61 Pulse: 78 Respirations: 17 Pulse Ox (%): 95 - Physical Exam General: Alert, In no apparent distress, Oriented x3, Cooperative Respiratory: Clear to auscultation bilaterally, Normal air movement Cardiovascular: Regular rate/rhythm Gastrointestinal: Other (soft, mild appropriate TTP, ND, incisions clean and dry, GINNY serous.) Assessment And Plan - Current Problems (Diagnosis) (1) Acute gangrenous cholecystitis Current Visit: Yes Status: Acute Plan: - post op instructions reviewed - GINNY drain teaching - bland diet reviewed - lifting restrictions reviewed - see discharge information - augmentin x 7 days - pain meds per Dr. Mandel
[2021-10-25] MEDS ORDERED: POTASSIUM CL SA 10 MEQ TAB PO ONE ×3 (09:00→16:00)
[2021-10-25] MEDS: icosapent ethyL 1 GM CAP PO SCH (09:30)
[2021-10-25] MEDS: NEBIVOLOL HCL 5 MG TAB PO SCH (09:30)
[2021-10-25] MEDS: HYDROCODONE/APAP 7.5/325 MG TAB PO SCH ×3 (09:31→22:03)
[2021-10-25] MEDS: DULOXETINE 30 MG CAP PO SCH (09:32)
[2021-10-25] MEDS: GABAPENTIN 400 MG CAP PO SCH ×3 (09:32→22:03)
[2021-10-25] MEDS: methocarbamoL 500 MG TAB PO SCH ×2 (09:33→22:05)
[2021-10-25] MEDS: PANTOPRAZOLE 40 MG INJ IVP SCH ×2 (09:33→22:02)
--- NOTE | 2021-10-25 09:58 | P.DS ---
Admission Date: 10/23/21 Discharge Date: 10/25/21 Disposition: ROUTINE DISCHARGE Discharge Condition: GOOD Reason for Admission: Chest/epigastric pain - Problems (1) Abdominal pain Current Visit: Yes Status: Acute (2) Chest pain Current Visit: Yes Status: Acute Hospital Course: Patient is a 71-year-old male with history of hypertension, hyperlipidemia. He presented to the ER with epigastric and thoracic chest pain. His ACS work-up was unremarkable. His troponins were negative. He was seen by general surgery due to concern of possible cholecystitis on abdominal imaging. He underwent a laparoscopic cholecystectomy on 10/24. He can be discharged on a 7-day course of Augmentin, and a GINNY drain. He will follow up with Surgery next week. Vital Signs/Physical Exam: Temp Pulse Resp BP Pulse Ox 97.5 F 80 17 125/64 95 10/25/21 08:58 10/25/21 09:30 10/25/21 08:58 10/25/21 09:30 10/25/21 08:58 General: Alert, In no apparent distress, Cooperative HEENT: Atraumatic, Normocephalic Respiratory: Clear to auscultation bilaterally, Normal air movement Cardiovascular: Regular rate/rhythm, Normal S1 S2, Abnormal S3 Gastrointestinal: Soft and benign, Other (GINNY drain), Tenderness Musculoskeletal: No clubbing, No swelling, No contractures Neurological: Normal speech, Normal affect Laboratory Data at Discharge: WBC 9.30 K/uL (4.3-10.9) D 10/25/21 06:15 Hgb 10.7 g/dL (13.6-17.9) L 10/25/21 06:15 Hct 31.8 % (39.6-49.0) L 10/25/21 06:15 Plt Count 136 K/uL (152-406) L D 10/25/21 06:15 PT 10.6 SECONDS (9.5-12.5) 10/22/21 21:29 INR 0.92 10/22/21 21:29 Sodium 136 mmol/L (136-145) 10/25/21 06:15 Potassium 3.4 mmol/L (3.5-5.1) L 10/25/21 06:15 BUN 18 mg/dL (7-18) 10/25/21 06:15 Creatinine 1.15 mg/dL (0.55-1.3) 10/25/21 06:15 Glucose 119 mg/dL (74-106) H 10/25/21 06:15 Magnesium 2.4 mg/dL (1.8-2.4) 10/22/21 21:29 Total Bilirubin 1.0 mg/dL (0.2-1.0) 10/25/21 06:15 AST 37 U/L (15-37) 10/25/21 06:15 ALT 44 U/L (12-78) 10/25/21 06:15 Alkaline Phosphatase 41 U/L (45-117) L 10/25/21 06:15 Lipase 72 U/L (73-393) L 10/22/21 21:29 Home Medications: Atorvastatin Calcium 20 mg PO BEDTIME 03/31/18 Duloxetine HCl 60 mg PO DAILY 03/31/18 Gabapentin [Neurontin] 800 mg PO TID 03/31/18 Hydrocodone Bit/Acetaminophen [Hydrocodon-Acetaminoph 7.5-325] 7.5 tab PO TID 03/31/18 Levothyroxine [Synthroid*] 100 mcg PO DAILY 03/31/18 Methocarbamol 500 mg PO BID 03/31/18 Nebivolol HCl [Bystolic*] 10 mg PO DAILY 03/31/18 Chlorthalidone 25 mg PO DAILY 10/23/21 Telmisartan 50 mg PO DAILY 10/23/21 icosapent ethyL [Vascepa 1 gm Cap] 2 tab PO DAILY 10/23/21 Amox/Clavulanate [Augmentin 875-125 Tab] 1 each PO BID #14 tab 10/25/21 New Medications: Amox/Clavulanate [Augmentin 875-125 Tab] 1 each PO BID #14 tab Diet: [place] Activity: No lifting more than 10 lbs Followup: Carlos Constantino MD [ACTIVE - CAN ADMIT] - Elvis Dent MD [Primary Care Provider] -
[2021-10-25 13:59] LABS: Potassium 3.4 mmol/L (3.5-5.1)
--- NOTE | 2021-10-25 15:40 | P.PN ---
Subjective Date of Service: 10/25/21 Chief Complaint: Chest/epigastric pain Subjective: Improving (POD#1 S/P lap emelyn. Currently with a GINNY drain. Discharge postponed due to urinary retention) Physical Examination - Vital Signs Temperature: 97.5 F Blood Pressure: 129/73 Pulse: 73 Respirations: 16 Pulse Ox (%): 97 - Physical Exam General: In no apparent distress, Cooperative HEENT: Atraumatic, Normocephalic Respiratory: Clear to auscultation bilaterally, Normal air movement Cardiovascular: Regular rate/rhythm, Normal S1 S2 Gastrointestinal: Soft and benign, Other (GINNY drain) Neurological: Normal speech, Normal affect Assessment And Plan - Current Problems (Diagnosis) (1) Abdominal pain Current Visit: Yes Status: Acute (2) Chest pain Current Visit: Yes Status: Acute Physician Review Additional Text: 10/24/21 15:05 Assessment Patient is a 71-year-old male with history of hypertension, hyperlipidemia. He presented to the ER with epigastric and thoracic chest pain. His ACS work-up was unremarkable. His troponins were negative. Was seen by general surgery due to concern of possible cholecystitis on abdominal imaging. He underwent a laparoscopic cholecystectomy on 10/24. Post op course complicated by urinary retention. Abdominal pain chest pain cholelithiasis/cholecystitis morbid obesity plan: Start bladder scan 4 hours, PRN straight cath Patient does not want to be discharged with a agrawal catheter Encourage ambulation DVT ppx Multimodal pain regimen continue Zosyn. OK to DC with Augmentin if urinary retention is resolved We will monitor patient overnight and possible discharge tomorrow
[2021-10-25] MEDS: ATORVASTATIN 20 MG TAB PO SCH (22:07)
[2021-10-26] MEDS: PIPER TAZO 3.375 GM in NA CHLORIDE 0.9% 100 ML IV SCH ×3 (02:08→16:33)
[2021-10-26 06:03] LABS: Absolute Lymphocytes (CBC) 1.1 K/uL (0.7-4.9); Hematocrit 30.9 % (39.6-49.0); Lymphocytes % 18.7 % (15.3-44.8); MPV 9.3 fL (7.6-11.3); RBC Red Blood Cell Count 3.45 M/uL (4.33-5.43)
[2021-10-26 06:12] LABS: Albumin 2.6 g/dL (3.4-5.0); Bilirubin Total 0.7 mg/dL (0.2-1.0); Potassium 3.8 mmol/L (3.5-5.1)
[2021-10-26] MEDS: LEVOTHYROXINE SOD 0.1 MG TAB PO SCH (06:55)
[2021-10-26 08:21] VITALS: BP 124/61; TEMP 97.1
[2021-10-26] MEDS ORDERED: POTASSIUM 25 MEQ EFFERV TAB PO ONE (09:00)
[2021-10-26] MEDS: D5 0.45 NS 1,000 ML IV SCH (09:47)
[2021-10-26] MEDS: PANTOPRAZOLE 40 MG INJ IVP SCH (11:15)
[2021-10-26] MEDS: DULOXETINE 30 MG CAP PO SCH (11:15)
[2021-10-26] MEDS: GABAPENTIN 400 MG CAP PO SCH (11:15)
[2021-10-26] MEDS: icosapent ethyL 1 GM CAP PO SCH (11:15)
[2021-10-26] MEDS: HYDROCODONE/APAP 7.5/325 MG TAB PO SCH (11:16)
[2021-10-26] MEDS: methocarbamoL 500 MG TAB PO SCH (11:16)
[2021-10-26] MEDS: NEBIVOLOL HCL 5 MG TAB PO SCH (11:18)
[2021-10-26 11:44] VITALS: O2SAT 91
--- NOTE | 2021-10-26 12:21 | P.PN ---
Subjective Date of Service: 10/26/21 Chief Complaint: Chest/epigastric pain Subjective: Other (Persistent urinary retention. Required several straight cath. Patient is refusing to go home with a agrawal catheter.) Physical Examination - Vital Signs Temperature: 97.1 F Blood Pressure: 124/61 Pulse: 61 Respirations: 16 Pulse Ox (%): 91 - Physical Exam General: Alert, In no apparent distress, Cooperative HEENT: Atraumatic, Normocephalic Neck: Supple Respiratory: Clear to auscultation bilaterally, Normal air movement Cardiovascular: No edema, Regular rate/rhythm, Normal S1 S2 Musculoskeletal: No clubbing, No swelling, No contractures Neurological: Normal speech, Normal affect Assessment And Plan - Current Problems (Diagnosis) (1) Abdominal pain Current Visit: Yes Status: Acute (2) Chest pain Current Visit: Yes Status: Acute Physician Review Additional Text: 10/24/21 15:05 Assessment Patient is a 71-year-old male with history of hypertension, hyperlipidemia. He presented to the ER with epigastric and thoracic chest pain. His ACS work-up was unremarkable. His troponins were negative. Was seen by general surgery due to concern of possible cholecystitis on abdominal imaging. He underwent a laparoscopic cholecystectomy on 10/24. Post op course complicated by urinary retention. Abdominal pain chest pain cholelithiasis/cholecystitis morbid obesity plan: DC narcotics Continue bladder scan and straight cath PRN Patient does not want to be discharged with a agrawal catheter Encourage ambulation DVT ppx continue Zosyn. OK to DC with Augmentin if urinary retention is resolved
--- NOTE | 2021-10-26 13:54 | CON ---
Date of Consultation: 10/23/2021 Reason For Consultation: Cardiac clearance for surgery by Dr. Constantino. History Of Present Illness: The patient has no previous cardiac history. He has a history of dyslip idemia and hypothyroidism. He came in with abdominal pain and diaphoresis. Denied any fever or coug h or shortness of breath. He denied any vomiting or diarrhea. Allergies: NONE. Review of Systems: Negative. Social History: Negative. Family History: Negative. Medications: At home include Vascepa, Lipitor, gabapentin, Bystolic, levothyroxine, telmisartan, chl orthalidone. Physical Examination: Vital Signs: Blood pressure is 136/65, pulse is 83, respiratory rate is 18, afebrile. HEENT: Negative. Neck: Supple. No bruit. Chest: Clear to auscultation and percussion. Cardiac: Revealed regular rhythm and rate. No murmurs, gallops, or rubs. Abdomen: Benign. Extremities: Revealed no clubbing, cyanosis, or edema. Diagnostic Data: Showed normal creatinine. He had an elevated white count with a left shift. His p otassium was 3.2. BNP was 687. His EKG showed possible old anterior infarction. His chest x-ray wa s normal. Impression And Plan: The patient with acute cholecystitis, some risk for heart disease include hyper tension and dyslipidemia. Symptoms are definitely not consistent with coronary artery disease or con gestive heart failure. His EKG is unremarkable. He has what seems to be like an old anterior infarc tion probably because of his body habitus. His chest x-ray is negative. I am comfortable with him h aving surgery. I think he is at low risk for perioperative mortality. We will continue to follow michael gomez on an as-needed basis. No need for any cardiac workup at this point. ELAYNE/POLO Voice ID: [id number] Report ID: [id number]
--- NOTE | 2021-10-26 15:00 | P.DS ---
Admission Date: 10/23/21 Discharge Date: 10/26/21 Disposition: ROUTINE DISCHARGE Discharge Condition: GOOD Reason for Admission: Chest/epigastric pain - Problems (1) Abdominal pain Current Visit: Yes Status: Acute (2) Chest pain Current Visit: Yes Status: Acute Hospital Course: Patient is a 71-year-old male with history of hypertension, hyperlipidemia. He presented to the ER with epigastric and thoracic chest pain. His ACS work-up was unremarkable. His troponins were negative. He was seen by general surgery due to concern of possible cholecystitis on abdominal imaging. He underwent a laparoscopic cholecystectomy on 10/24. He can be discharged on a 7-day course of Augmentin, and a ZORAIDA drain. He will follow up with Surgery next week. His hospital course was complicated by urinary retention requiring straight catheter on multiple occasions. He will be discharged with a Guaman catheter and follow-up with urology next week. Vital Signs/Physical Exam: Temp Pulse Resp BP Pulse Ox 97.1 F 61 16 124/61 91 10/26/21 12:21 10/26/21 12:21 10/26/21 12:21 10/26/21 12:21 10/26/21 12:21 General: In no apparent distress, Cooperative HEENT: Atraumatic, Normocephalic Cardiovascular: No edema, Regular rate/rhythm, Normal S1 S2 Gastrointestinal: Other (zoraida drain) Neurological: Normal speech, Normal affect Laboratory Data at Discharge: WBC 5.90 K/uL (4.3-10.9) D 10/26/21 05:19 Hgb 10.6 g/dL (13.6-17.9) L 10/26/21 05:19 Hct 30.9 % (39.6-49.0) L 10/26/21 05:19 Plt Count 152 K/uL (152-406) 10/26/21 05:19 PT 10.6 SECONDS (9.5-12.5) 10/22/21 21:29 INR 0.92 10/22/21 21:29 Sodium 139 mmol/L (136-145) 10/26/21 05:19 Potassium 3.8 mmol/L (3.5-5.1) 10/26/21 05:19 BUN 11 mg/dL (7-18) 10/26/21 05:19 Creatinine 1.10 mg/dL (0.55-1.3) 10/26/21 05:19 Glucose 93 mg/dL (74-106) 10/26/21 05:19 Magnesium 2.4 mg/dL (1.8-2.4) 10/22/21 21:29 Total Bilirubin 0.7 mg/dL (0.2-1.0) 10/26/21 05:19 AST 44 U/L (15-37) H 10/26/21 05:19 ALT 50 U/L (12-78) 10/26/21 05:19 Alkaline Phosphatase 47 U/L (45-117) 10/26/21 05:19 Lipase 72 U/L (73-393) L 10/22/21 21:29 Home Medications: Atorvastatin Calcium 20 mg PO BEDTIME 03/31/18 Duloxetine HCl 60 mg PO DAILY 03/31/18 Gabapentin [Neurontin] 800 mg PO TID 03/31/18 Hydrocodone Bit/Acetaminophen [Hydrocodon-Acetaminoph 7.5-325] 7.5 tab PO TID 03/31/18 Levothyroxine [Synthroid*] 100 mcg PO DAILY 03/31/18 Methocarbamol 500 mg PO BID 03/31/18 Nebivolol HCl [Bystolic*] 10 mg PO DAILY 03/31/18 Chlorthalidone 25 mg PO DAILY 10/23/21 Telmisartan 50 mg PO DAILY 10/23/21 icosapent ethyL [Vascepa 1 gm Cap] 2 tab PO DAILY 10/23/21 Amox/Clavulanate [Augmentin 875-125 Tab] 1 each PO BID #14 tab 10/25/21 New Medications: Amox/Clavulanate [Augmentin 875-125 Tab] 1 each PO BID #14 tab Diet: [place] Activity: No lifting more than 10 lbs Followup: Carlos Constantino MD [ACTIVE - CAN ADMIT] - (Call to schedule appointment) Elvis Dent MD [Primary Care Provider] - (Call to schedule appointment)
[2021-10-27] MEDS ORDERED: PANTOPRAZOLE 40MG TABLET PO SCH (06:30)
== END 2021-10-26 16:30 | disposition home or self-care (01) | DRG 418 ==
LOC: ER 20:43 → ERHOLD 10-23 00:07 → 2ND 10-23 01:04 → OBSVTOIN 10-23 17:41
PROVIDERS: ADMIT Internal Medicine; ATTEND Internal Medicine
PROC: BF121ZZ Fluoroscopy of Gallbladder using Low Osmolar Contrast (ICD-10-PCS; 2021-10-24)
PROC: 0FT44ZZ Resection of Gallbladder, Percutaneous Endoscopic Approach (ICD-10-PCS; principal; 2021-10-24 11:00)
DX: K80.00 Calculus of gallbladder with acute cholecystitis without obstruction (principal); Z68.42 Body mass index [BMI] 45.0-49.9, adult; E66.01 Morbid (severe) obesity due to excess calories; E03.9 Hypothyroidism, unspecified; I10 Essential (primary) hypertension; E78.5 Hyperlipidemia, unspecified; G62.9 Polyneuropathy, unspecified; R33.9 Retention of urine, unspecified; Z79.890 Hormone replacement therapy; Z79.899 Other long term (current) drug therapy; Z20.822 Contact with and (suspected) exposure to COVID-19
CPT/HCPCS: 36415; 71045; 71275; 74175; 76705; 78226; 80048; 80053; 80076; 81003; 81015; 83690; 83735; 83880; 84132; 84484; 85025; 85610; 88304; 93005; 96365; 96375; 99285; A9537; C9113; G0378; J1170; J2250; J2405; J2543; J2704; J3010; J3480; J7120; J7799; Q9967; U0003

== ENCOUNTER 2021-10-26 21:07 | Emergency (ER) | payer OTHER ==
--- OUTSIDE RECORDS SUMMARY | 2021-10-26 21:10 | XMS REPORT | Continuity of Care Document ---
:1950 Author Organization [facility] t Address [address] [place] [address] Care Team Providers Name Role Phone Filipe [...] [facility] Yes Abel TK 1 T PO [facility] Clinicians Facility Department ID 2021-09-18 Outpatient Fili[facility] 12:59:19 [place] [id number] [facility] 2021-09-18 Outpatient [facility] 12:50:59 [place] [id number] [facility] 2021-09-18 Outpatient Filipe [facility] 12:03:30 [place] [id number] [facility] 2021-09-18 Outpatient Filipe [facility] 11:58:47 [place] [id number] [facility] 2021-09-18 Outpatient Filipe [facility] 11:55:16 [place] [id number] [facility] 2021-09-18 Outpatient Filipe [facility]52:32 [place] [id number] [facility] 2021-02-07 2021-02-07 Outpatient [facility] [id number] [facility] 2021-01-31 2021-01-31 Outpatient [facility] [id number] [facility] 2021-01-23 2021-01-23 Outpatient [facility] [id number] [facility] 2020-12-27 2020-12-27 Outpatient [facility] [id number] [facility] 2020-12-27 2020-12-27 Outpatient [facility] [id number] [facility] 2020-12-04 2020-12-04 Outpatient [facility] [id number] [facility] 2020-07-02 2020-07-02 Outpatient [facility] [id number] [facility] 2020-06-18 2020-06-18 Outpatient [facility] [id number] [facility] 2020-06-13 2020-06-13 Outpatient [facility] [id number] [facility] 2018-03-10 2018-03-10 [facility] [id number] [facility] 14[facility]00 14:00:[facility] Results This patient has no known results.
--- NOTE | 2021-10-26 22:01 | RAD REPORT ---
EXAM DESCRIPTION: [facility]Stone Protocol - 10/26/2021 9:52 pm CLINICAL HISTORY: HEMATURIA COMPARISON: Abdomen Exam Limited dated 10/23/2021; Angio Aorta For Dissection dated 10/22/2021; CTANGIO CHEST FOR PE dated 06/05/2012 TECHNIQUE: CT of the abdomen and pelvis was performed. All CT scans are performed using dose optimization technique as appropriate and may include automated exposure control or mA/KV adjustment according to patient size. FINDINGS: Lower chest: Basilar atelectasis and/or scarring. Small hiatal hernia with thickened dista l esophagus. Liver: Hepatic steatosis. Low-density lesion the hepatic dome is unchanged. This was present in 2011 and is benign. Biliary: Recent cholecystectomy. Surgical drain in the right upper quadrant . Stomach: No significant focal abnormality. Duodenum: No significant focal abnormality. Pancreas: No significant abnormality. Spleen: No significant abnormality. Adrenal: No suspicious lesions. Kidney/ureter: No hydronephrosis. No renal calculi. Retroperitoneum: No retroperitoneal adenopathy. Vascular: No aneurysm. Mild atherosclerosis. Bowel: Diverticulosis.. Peritoneum: No ascites or free air. Small fat containing inguinal hernias. Gas within the abdominal w all likely related to recent surgery. Bladder: Guaman catheter within the bladder which is decompressed. The wall is severely thickened whic h is likely related to decompression of a previously dilated and patulous bladder. Reproductive: Mild prostatomegaly. Bones: No acute fracture. Other: n/a IMPRESSION: 1. Pronounced bladder wall thickening. The bladder is currently decompressed via Guaman c atheter. On the previous CT, the bladder was markedly distended and clearly patulous which was presum ably related to chronic bladder outlet obstruction. 2. Postoperative changes from recent cholecystectomy. No complicating features.
[2021-10-26 22:56] LABS: Urine Bacteria 20-50 /HPF (NONE SEEN); Urine RBC TNTC /HPF (NONE SEEN)
[2021-10-26 22:57] LABS: Urine Mucus 1+ /HPF (NONE SEEN)
[2021-10-26 22:58] LABS: Potassium 4.5 mmol/L (3.5-5.1)
[2021-10-27 00:03] LABS: Hematocrit 33.9 % (39.6-49.0); Lymphocytes % 11.2 % (15.3-44.8); MPV 8.5 fL (7.6-11.3)
[2021-10-27] MEDS ORDERED: CEFTRIAXONE 1000 MG/VIAL ONE (00:04)
[2021-10-27] MEDS ORDERED: NA CHLORIDE 0.9% 50 ML ONE (00:05)
[2021-10-27 00:08] LABS: Protime INR 0.98
--- NOTE | 2021-10-27 00:52 | ER ---
Nurse's Notes [facility] Name: Tahir Alexandre Age: 71 yrs Sex: Male : 1950 Arrival Date: 10/26/2021 Time: 21:10 Bed 6 Private MD: Elvis Dent B Diagnosis: Acute cystitis with hematuria Presentation: 10/26 21:17 Chief complaint: Spouse and/or significant other states: "He was just released from the 5 second floor a couple of hours ago. He had his galbladder removed. He is now having blood in his catheter. They said if it was cranberry colored to bring him here. It looks like cranberry color to me.". Coronavirus screen: Vaccine status: Patient reports receiving the 2nd dose of the covid vaccine. [employer] Ebola Screen: Patient negative for fever greater than or equal to 101.5 degrees Fahrenheit, and additional compatible Ebola Virus Disease symptoms Patient denies exposure to infectious person. Patient denies travel to an Ebola-affected area in the 21 days before illness onset. Initial Sepsis Screen: Does the patient meet any 2 criteria? No. Patient's initial sepsis screen is negative. Does the patient have a suspected source of infection? No. Patient's initial sepsis screen is negative. Risk Assessment: Do you want to hurt yourself or someone else? Patient reports no desire to harm self or others. Onset of symptoms was October 26, 2021 at 17:30. 21:17 Method Of Arrival: Ambulatory 5 21:17 Acuity: SHARLENE 3 tw5 Triage Assessment: 21:20 General: Appears uncomfortable, Behavior is agitated. Pain: Complains of pain in groin tw5 Pain currently is 8 out of 10 on a pain scale. Historical: - Allergies: 21:20 No Known Allergies; tw5 - Home Meds: 21:31 atorvastatin 20 mg oral tab 1 tab once daily [Active]; hydrocodone-acetaminophen as6 7.5-325 mg oral tab 1 tab three times a day [Active]; gabapentin 800 mg oral tab 1 tab 3 times per day [Active]; methocarbamol 500 mg oral tab 1 tabs twice a day [Active]; duloxetine 60 mg oral CDRS 1 cap once daily [Active]; chlorthalidone 25 mg oral tab 1 tab once daily [Active]; Vascepa 1 gram oral cap 2 caps daily [Active]; Bystolic 10 mg oral tab 1 tab once daily [Active]; levothyroxine 100 mcg oral tab 1 tab once daily [Active]; telmisartan 80 mg oral tab 1 tab once daily [Active]; - PMHx: 21:20 Hypercholesterolemia; hyperthyroidism; tw5 - PSHx: 21:20 Cholecystectomy; tw5 - Immunization history:: Flu vaccine is not up to date. - Social history:: Smoking status: Patient/guardian denies using tobacco, the patient reports quitting approximately 20 years ago. Screenin:39 Abuse screen: Denies threats or abuse. Denies injuries from another. Nutritional as6 screening: No deficits noted. Tuberculosis screening: No symptoms or risk factors identified. Fall Risk None identified. Assessment: 21:35 General: Appears uncomfortable, Behavior is cooperative, agitated. Pain: Complains of as6 pain in groin. Neuro: Level of Consciousness is awake, alert, obeys commands, Oriented to person, place, time, situation. Cardiovascular: Capillary refill < 3 seconds Patient's skin is warm and dry. Respiratory: Airway is patent Trachea midline Respiratory effort is even, unlabored, Respiratory pattern is regular, symmetrical. GI: GINNY drain to RUQ. : Guaman in place to gravity drainage Urine is sasha blood, Reports pain. Derm: drsg to RQU. 10/27 00:50 Reassessment: No changes from previously documented assessment. Patient and/or family ll3 updated on plan of care and expected duration. Pain level reassessed. Patient is alert, oriented x 3, equal unlabored respirations, skin warm/dry/pink. Vital Signs: 10/26 21:17 BP 162 / 104; Pulse 73; Resp 14; Temp 98.5(O); Pulse Ox 95% on R/A; Weight 126.55 kg; tw5 Height 5 ft. 6 in. (167.64 cm); Pain 8/10; 22:21 BP 144 / 73; Pulse 70; Resp 20 S; Pulse Ox 98% on R/A; as6 23:25 BP 143 / 66; Pulse 65; Resp 18 S; Pulse Ox 98% on R/A; as6 10/27 00:50 BP 121 / 62; Pulse 69; Resp 17; Pulse Ox 100% on R/A; ll3 10/26 21:17 Body Mass Index 45.03 (126.55 kg, 167.64 cm) tw5 ED Course: 10/26 21:10 Patient arrived in ED. es 21:10 Elvis Dent MD is Private Physician. es 21:20 Triage completed. tw5 21:20 Arm band placed on right wrist. tw5 21:21 Neville Alvarez MD is Attending Physician. 7 21:29 Baldo Red, RN is Primary Nurse. as6 21:39 Bed in low position. Call light in reach. Side rails up X2. Adult w/ patient. Pulse ox as6 on. NIBP on. 21:52 CT Stone Protocol In Process Unspecified. EDMS 22:21 Inserted saline lock: 22 gauge in right forearm, using aseptic technique. Blood as6 collected. 10/27 00:52 Wayne Temple MD is Referral Physician. [facility] 01:07 No provider procedures requiring assistance completed. IV discontinued, intact, ll3 bleeding controlled, No redness/swelling at site. Pressure dressing applied. Administered Medications: 00:20 Drug: Rocephin (cefTRIAXone) 1 grams Route: IV; Rate: per protocol; Site: right forearm;ll3 00:49 Follow up: Response: No adverse reaction; IV Status: Completed infusion; IV Intake: [id number] Intake: 00:49 IV: 50ml; Total: 50ml. ll3 Outcome: 00:52 Discharge ordered by . [facility] 01:07 Discharged to home ambulatory, with family. ll3 01:07 Condition: stable 01:07 Discharge instructions given to patient, family, Instructed on discharge instructions, follow up and referral plans. medication usage, Demonstrated understanding of instructions, follow-up care, medications, Prescriptions given X 1. 01:08 Patient left the ED. ll3 Signatures: Dispatcher [employer] EDLA Oneyda Garcia Maurice, MD MD 7 Mary Lara tw5 Baldo Red, NEGAR BILLS as6 Rizwana Monahan RN RN ll3
--- NOTE | 2021-10-27 00:53 | EDPHYS ---
Physician Documentation [facility] Name: Tahir Alexandre Age: 71 yrs Sex: Male : 1950 Arrival Date: 10/26/2021 Time: 21:10 Bed 6 Private MD: Elvis Dent B ED Physician Neville Alvarez HPI: 10/26 21:38 This 71 yrs old Male presents to ER via Ambulatory with complaints of Blood In Catheter.mh7 21:38 The patient presents with a Agrawal catheter problem, draining bloody urine. Onset: The mh7 symptoms/episode began/occurred today. Modifying factors: The symptoms are alleviated by nothing, the symptoms are aggravated by nothing. Associated signs and symptoms: Pertinent negatives: abdominal pain, constipation, diarrhea, dysuria, fever, nausea, vomiting. Severity of symptoms: At their worst the symptoms were moderate, earlier today, in the emergency department the symptoms are unchanged. Historical: - Allergies: 21:20 No Known Allergies; tw5 - Home Meds: 21:31 atorvastatin 20 mg oral tab 1 tab once daily [Active]; hydrocodone-acetaminophen as6 7.5-325 mg oral tab 1 tab three times a day [Active]; gabapentin 800 mg oral tab 1 tab 3 times per day [Active]; methocarbamol 500 mg oral tab 1 tabs twice a day [Active]; duloxetine 60 mg oral CDRS 1 cap once daily [Active]; chlorthalidone 25 mg oral tab 1 tab once daily [Active]; Vascepa 1 gram oral cap 2 caps daily [Active]; Bystolic 10 mg oral tab 1 tab once daily [Active]; levothyroxine 100 mcg oral tab 1 tab once daily [Active]; telmisartan 80 mg oral tab 1 tab once daily [Active]; - PMHx: 21:20 Hypercholesterolemia; hyperthyroidism; tw5 - PSHx: 21:20 Cholecystectomy; tw5 - Immunization history:: Flu vaccine is not up to date. - Social history:: Smoking status: Patient/guardian denies using tobacco, the patient reports quitting approximately 20 years ago. ROS: 21:38 Constitutional: Negative for fever, chills, and weight loss, Eyes: Negative for injury, mh7 pain, redness, and discharge, ENT: Negative for injury, pain, and discharge, Neck: Negative for injury, pain, and swelling, Cardiovascular: Negative for chest pain, palpitations, and edema, Respiratory: Negative for shortness of breath, cough, wheezing, and pleuritic chest pain, Abdomen/GI: Negative for abdominal pain, nausea, vomiting, diarrhea, and constipation, Back: Negative for injury and pain, MS/Extremity: Negative for injury and deformity, Skin: Negative for injury, rash, and discoloration, Neuro: Negative for headache, weakness, numbness, tingling, and seizure, Psych: Negative for depression, anxiety, suicide ideation, homicidal ideation, and hallucinations, Allergy/Immunology: Negative for hives, rash, and allergies, Endocrine: Negative for neck swelling, polydipsia, polyuria, polyphagia, and marked weight changes, Hematologic/Lymphatic: Negative for swollen nodes, abnormal bleeding, and unusual bruising. Exam: 21:38 Constitutional: This is a well developed, well nourished patient who is awake, alert, mh7 and in no acute distress. Head/Face: Normocephalic, atraumatic. Eyes: Pupils equal round and reactive to light, extra-ocular motions intact. Lids and lashes normal. Conjunctiva and sclera are non-icteric and not injected. Cornea within normal limits. Periorbital areas with no swelling, redness, or edema. Neck: Trachea midline, no thyromegaly or masses palpated, and no cervical lymphadenopathy. Supple, full range of motion without nuchal rigidity, or vertebral point tenderness. No Meningismus. Chest/axilla: Normal chest wall appearance and motion. Nontender with no deformity. No lesions are appreciated. Cardiovascular: Regular rate and rhythm with a normal S1 and S2. No gallops, murmurs, or rubs. Normal PMI, no JVD. No pulse deficits. Respiratory: Lungs have equal breath sounds bilaterally, clear to auscultation and percussion. No rales, rhonchi or wheezes noted. No increased work of breathing, no retractions or nasal flaring. Abdomen/GI: Soft, non-tender, with normal bowel sounds. No distension or tympany. No guarding or rebound. No evidence of tenderness throughout. Back: No spinal tenderness. No costovertebral tenderness. Full range of motion. Skin: Warm, dry with normal turgor. Normal color with no rashes, no lesions, and no evidence of cellulitis. MS/ Extremity: Pulses equal, no cyanosis. Neurovascular intact. Full, normal range of motion. Neuro: Awake and alert, GCS 15, oriented to person, place, time, and situation. Cranial nerves II-XII grossly intact. Motor strength 5/5 in all extremities. Sensory grossly intact. Cerebellar exam normal. Normal gait. Psych: Awake, alert, with orientation to person, place and time. Behavior, mood, and affect are within normal limits. 21:38 : CVA tenderness, is absent, Male external genitalia: normal, Bladder: is normal, [facility] Rectal exam: is refused by patient or guardian, a agrawal is noted, urine is blood tinged. Vital Signs: 21:17 BP 162 / 104; Pulse 73; Resp 14; Temp 98.5(O); Pulse Ox 95% on R/A; Weight 126.55 kg; tw5 Height 5 ft. 6 in. (167.64 cm); Pain 8/10; 22:21 BP 144 / 73; Pulse 70; Resp 20 S; Pulse Ox 98% on R/A; as6 23:25 BP 143 / 66; Pulse 65; Resp 18 S; Pulse Ox 98% on R/A; as6 03 00:50 BP 121 / 62; Pulse 69; Resp 17; Pulse Ox 100% on R/A; ll3 10/26 21:17 Body Mass Index 45.03 (126.55 kg, 167.64 cm) tw5 MDM: 00:50 Differential diagnosis: UTI, urinary retention, Agrawal catheter problem, urethritis. [facility] Data reviewed: vital signs, nurses notes, lab test result(s), CBC, electrolytes, urinalysis, radiologic studies, CT scan. Data interpreted: Pulse oximetry: on room air is 98 %. Interpretation: normal. Counseling: I had a detailed discussion with the patient and/or guardian regarding: the historical points, exam findings, and any diagnostic results supporting the discharge/admit diagnosis, the presence of at least one elevated blood pressure reading (>120/80) during this emergency department visit, lab results, radiology results, the need for outpatient follow up, a urologist, to return to the emergency department if symptoms worsen or persist or if there are any questions or concerns that arise at home. Response to treatment: the patient's symptoms have markedly improved after treatment. 00:52 Patient medically screened. [facility] 10/26 21:35 Order name: CBC with Diff [facility] 10/26 21:35 Order name: Basic Metabolic Panel; Complete Time: 23:44 [facility] 10/26 21:35 Order name: Protime (+inr); Complete Time: 00:36 [facility] 10/26 21:35 Order name: Ptt, Activated; Complete Time: 00:36 [facility] 10/26 21:35 Order name: Urine Culture [facility] 10/26 21:35 Order name: Urine Microscopic Only; Complete Time: 23:44 [facility] 10/26 21:35 Order name: Urine Dipstick-Ancillary (obtain specimen); Complete Time: 23:08 [facility] 10/26 21:36 Order name: CBC with Automated Diff; Complete Time: 00:36 EDMS 10/26 21:36 Order name: CT Stone Protocol; Complete Time: 22:03 [facility] 10/26 22:36 Order name: Labs - recollect needed: CBC and Coags; Complete Time: 23:57 lp1 Administered Medications: 00:20 Drug: Rocephin (cefTRIAXone) 1 grams Route: IV; Rate: per protocol; Site: right forearm;ll3 00:49 Follow up: Response: No adverse reaction; IV Status: Completed infusion; IV Intake: [id number] Disposition Summary: 10/27/21 00:52 Discharge Ordered Location: Home [facility] Problem: new [facility] Symptoms: have improved [facility] Condition: Stable [facility] Diagnosis - Acute cystitis with hematuria [facility] Followup: [facility] - With: Private Physician - When: 1 - 2 days - Reason: Worsening of condition, Recheck today's complaints, Continuance of care, Re-evaluation by your physician Followup: [facility] - With: Wayne Temple MD - When: 1 - 2 days - Reason: Worsening of condition, Recheck today's complaints Discharge Instructions: - Discharge Summary Sheet [facility] - Urinary Tract Infection, Adult, [id number] [facility] - Indwelling Urinary Catheter Care, Adult, [id number] [facility] Forms: - Medication Reconciliation Form [facility] - Thank You Letter [facility] - Antibiotic Education [facility] - Prescription Opioid Use [facility] Prescriptions: - Cephalexin 500 mg Oral Capsule - take 1 capsule by ORAL route every 12 hours for 10 days; 20 capsule; Refills: mh7 0, Product Selection Permitted Signatures: Dispatcher [employer] Idalia Wahl RN RN lp1 Neville Alvarez MD MD 7 Mary Lara 5 Baldo Red RN RN as6 Rizwana Monahan RN RN ll3
[2021-10-27 01:14] VITALS: TEMP 98.5
[2021-10-27 01:18] VITALS: BP 121/62; O2SAT 100
== END 2021-10-27 01:08 | disposition home or self-care (01) ==
LOC: ER 21:07
DX: N30.01 Acute cystitis with hematuria (principal); E78.00 Pure hypercholesterolemia, unspecified; E05.90 Thyrotoxicosis, unspecified without thyrotoxic crisis or storm
CPT/HCPCS: 36415; 74176; 76377; 80048; 81015; 85025; 85610; 85730; 87086; 87088; 96365; 99284

== ENCOUNTER 2021-11-08 17:57 | Emergency (ER) | payer OTHER ==
--- OUTSIDE RECORDS SUMMARY | 2021-11-08 17:59 | XMS REPORT | Continuity of Care Document ---
:1950 Author Organization [facility] t Address [address] [place] [address] Care Team Providers Name Role Phone Filipe [...] St -Acetaminop -Acetaminop [place] [facility]) Sravani - valentín laura TK 1 T PO [facility] TID [...] [facility] Yes Abel TK 1 T PO [facility] [...] Date/Time Type Type Clinicians Facility Department ID 2021-10-30 Outpatient Filipe [facility] [place] [id number] [facility] 2021-09-18 Outpatient Filipe [facility] 12:[facility] [place] [id number] [facility] 2021-09-18 Outpatient Filipe [facility] 12[facility]:59 [place] [id number] [facility] 2021-09-18 Outpatient Filipe [facility] 12:[facility]:30 [place] [id number] [facility] 2021-09-18 Outpatient Filipe [facility] 11:58:47 [place] [id number] [facility] 2021-09-18 Outpatient Filipe [facility]:16 [place] [id number] [facility] 2021-09-18 Outpatient Filipe [facility] 11:52:32 [place] [id number] [facility] 2021-10-30 2021-10-30 ambulatory [facility] [id number] [facility] 2021-02-07 2021-02-07 Outpatient [facility] [id number] [facility] 2021-01-31 2021-01-31 Outpatient [facility] [id number] [facility] 2021-01-23 2021-01-23 Outpatient [facility] [id number] [facility] 2020-12-27 2020-12-27 Out[facility] [id number] [facility] 2020-12-27 2020-12-27 Outpatient [facility] [id number] [facility] 2020-12-04 2020-12-04 Outpatient [facility] [id number] [facility] 2020-07-02 2020-07-02 Out[facility] [id number] [facility] 2020-06-18 2020-06-18 Outpatient [facility] [id number] [facility] 2020-06-13 2020-06-13 Outpatient [facility] [id number] [facility] 2018-03-10 2018-03-10 [facility] [id number] [facility] 14:[facility]00 14:00[facility] Results This patient has no known results.
[2021-11-08] MEDS ORDERED: NA CHLORIDE 0.9% 1,000 ML ONE (19:30)
[2021-11-08] MEDS ORDERED: VANCOMYCIN 1 GM/VIAL ONE (19:51)
[2021-11-08] MEDS ORDERED: NA CHLORIDE 0.9% 100 ML IV ONE (19:52)
[2021-11-08] MEDS ORDERED: NA CHLORIDE 0.9% 250 ML ONE (19:52)
[2021-11-08] MEDS ORDERED: CEFEPIME 1 GM/VIAL ONE (19:52)
[2021-11-08 19:59] LABS: Absolute Lymphocytes (CBC) 1.2 K/uL (0.7-4.9); Hematocrit 39.1 % (39.6-49.0); Lymphocytes % 9.8 % (15.3-44.8); MPV 9.1 fL (7.6-11.3); RBC Red Blood Cell Count 4.43 M/uL (4.33-5.43)
[2021-11-08] MEDS ORDERED: NA CHLORIDE 0.9% 3,000 ML ONE (20:07)
[2021-11-08 20:14] LABS: Protime INR 1.04
[2021-11-08 20:19] LABS: Potassium 3.7 mmol/L (3.5-5.1)
[2021-11-08 20:37] LABS: SARS-COV-2 RT PCR NEGATIVE (NEGATIVE)
[2021-11-08 20:41] LABS: Albumin 3.6 g/dL (3.4-5.0); Protein, Total 7.7 g/dL (6.4-8.2)
--- NOTE | 2021-11-08 21:20 | RAD REPORT ---
EXAM DESCRIPTION: US - Abdomen Exam Limited - 11/08/2021 9:12 pm CLINICAL HISTORY: ABD PAIN COMPARISON: Abdomen Exam Limited dated 10/23/2021; Stone Protocol dated 10/26/2021 FINDINGS: The examination is very limited due to body habitus. Visualization of the right lobe upper quadrant is extremely limited. Small echogenic focus is seen in the right upper quadrant of unclear etiology and significance. Common bile duct measures 5 mm. IMPRESSION: Extremely limited study due to body habitus. No pathologic biliary dilatation seen.
--- NOTE | 2021-11-08 23:16 | ER ---
Nurse's Notes [facility] Name: Tahir Alexandre Age: 71 yrs Sex: Male : 1950 Arrival Date: 11/08/2021 Time: 18:00 Bed 16 Private MD: Diagnosis: Weakness;Upper abdominal pain, unspecified Presentation: 11/08 18:06 Chief complaint: Patient states: Feels weak, tired, hot/cold flashes started today. Had ll1 gangrene gallbladder removed [address] Constantino. No fever. Coronavirus screen: Vaccine status: Patient reports receiving the 2nd dose of the covid vaccine. Client denies travel out of the [place] in the last 14 days. At this time, the client does not indicate any symptoms associated with coronavirus-19. Ebola Screen: Patient denies travel to an Ebola-affected area in the 21 days before illness onset. Initial Sepsis Screen: Does the patient meet any 2 criteria? No. Patient's initial sepsis screen is negative. Does the patient have a suspected source of infection? No. Patient's initial sepsis screen is negative. Risk Assessment: Do you want to hurt yourself or someone else? Patient reports no desire to harm self or others. Onset of symptoms was November 08, 2021. 18:06 Method Of Arrival: Ambulatory ll1 18:06 Acuity: SHARLENE 2 ll1 Triage Assessment: 18:10 General: Appears ill, Behavior is cooperative, appropriate for age. Pain: Denies pain. ll1 Neuro: Reports weakness. Cardiovascular: No deficits noted. Respiratory: No deficits noted. Historical: - Allergies: 18:08 No Known Allergies; ll1 - PMHx: 18:08 Hypercholesterolemia; hyperthyroidism; ll1 - PSHx: 18:08 Cholecystectomy; ll1 - Immunization history:: Client reports receiving the 2nd dose of the Covid vaccine, Flu vaccine status is unknown. - Social history:: Smoking status: Patient denies any tobacco usage or history of. Screenin:20 Abuse screen: Denies threats or abuse. Denies injuries from another. Nutritional tk1 screening: No deficits noted. Tuberculosis screening: No symptoms or risk factors identified. Fall Risk None identified. Assessment: 19:20 General: Appears distressed, uncomfortable, obese, well groomed, well developed, well tk1 nourished, Behavior is cooperative, appropriate for age, flat. Pain: Denies pain. 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 Cardiovascular: Denies chest pain, Capillary refill < 3 seconds is brisk in bilateral fingers Rhythm is sinus bradycardia. Respiratory: Airway is patent Respiratory effort is even, unlabored, Respiratory pattern is regular, symmetrical. GI: No deficits noted. No signs and/or symptoms were reported involving the gastrointestinal system. Abdomen is round non-distended, obese, Bowel sounds present X 4 quads. : Guaman in place. EENT: No deficits noted. No signs and/or symptoms were reported regarding the EENT system. Derm: Skin is intact, Incision sites to abdomen s/p lap emelyn healing. Skin is dry, Skin is pale. Musculoskeletal: No deficits noted. No signs and/or symptoms reported regarding the musculoskeletal system. 19:25 Reassessment: Blood and Blood Culture set 1 collected and sent. tk1 19:29 Reassessment: EKG done. NS 1liter started. tk1 19:36 Reassessment: Accucheck done. tk1 21:00 Reassessment: Patient and/or family updated on plan of care and expected duration. Pain tk1 level reassessed. Patient is alert, oriented x 3, equal unlabored respirations, skin warm/dry/pink. Patient states symptoms have improved. Patient resting with eyes closed. B/P somewhat improved.. 22:00 Reassessment: No changes from previously documented assessment. Patient and/or family tk1 updated on plan of care and expected duration. Pain level reassessed. Patient is alert, oriented x 3, equal unlabored respirations, skin warm/dry/pink. Patient denies pain at this time. 11/09 00:00 Reassessment: No changes from previously documented assessment. Patient and/or family tk1 updated on plan of care and expected duration. Pain level reassessed. Patient denies pain at this time. 01:15 Reassessment: Patient and/or family updated on plan of care and expected duration. Pain tk1 level reassessed. Patient denies pain at this time. 02:19 Reassessment: Patient OOB to ambulate using cane with at side. States, he has to tk1 have a BM. Steady with cane. states, it was only gas. Assisted patient onto stretcher and reconnected to monitor. Tolerated well. 03:03 Reassessment: No changes from previously documented assessment. Patient and/or family tk1 updated on plan of care and expected duration. Pain level reassessed. Patient is alert, oriented x 3, equal unlabored respirations, skin warm/dry/pink. Patient denies pain at this time. 03:20 Reassessment: Returned to restroom to try to have BM. tk1 03:24 Reassessment: Attempted to call report, transfer center states, unit is unable to take tk1 report at present. Call back in 15 minutes. Patient had large formed BM. 03:49 Reassessment: Attempted to call report. Transfer center states, I will have to call tk1 back in 10 minutes. She has to speak to the truck supervisor. 04:07 Reassessment: Report called to NEGAR Friedman at [facility] in [place]. tk1 Vital Signs: 18 18:06 BP 98 / 55; Pulse 70; Resp 18; Temp 97.6; Pulse Ox 95% on R/A; Weight 122.92 kg; Height ll1 5 ft. 6 in. (167.64 cm); Pain 0/10; 19:21 BP 77 / 43 RA Supine (auto/reg); Pulse 60 MON; Resp 13 S; Pulse Ox 97% on R/A; tk1 19:28 BP 88 / 47 RA Supine (auto/reg); Pulse 57 MON; Resp 12 S; Pulse Ox 92% on R/A; tk1 19:30 BP 95 / 38 RA Supine (auto/reg); Pulse 57 MON; Resp 11 S; Pulse Ox 90% on R/A; tk1 19:45 BP 111 / 45 RA Supine (auto/reg); Pulse 62 MON; Resp 14 S; Pulse Ox 100% on 2 lpm NC; tk1 20:00 BP 104 / 54 RA Supine (auto/reg); Pulse 60 MON; Resp 12 S; Pulse Ox 100% on 2 lpm NC; tk1 20:30 BP 106 / 55 RA Supine (auto/reg); Pulse 63 MON; Resp 16 S; Pulse Ox 100% on 2 lpm NC; tk1 21:00 BP 100 / 63 RA Supine (auto/reg); Pulse 64 MON; Resp 10 S; Pulse Ox 100% on 2 lpm NC; tk1 22:00 BP 111 / 62 RA Supine (auto/reg); Pulse 63 MON; Resp 16 S; Temp 98(O); Pulse Ox 100% on tk1 2 lpm NC; Pain 0/10; 22:30 BP 108 / 54 RA Supine (auto/reg); Pulse 58 MON; Resp 13; Pulse Ox 100% on 2 lpm NC; tk1 23:00 BP 113 / 62 RA Supine (auto/reg); Pulse 60 MON; Resp 10; Pulse Ox 99% on 2 lpm NC; Pain tk1 0/10; 23:30 BP 123 / 63 RA Supine (auto/reg); Pulse 61 MON; Resp 12 S; Pulse Ox 95% on R/A; tk1 11/09 00:00 BP 108 / 58 RA Supine (auto/reg); Pulse 63 MON; Resp 15 S; Pulse Ox 93% on R/A; tk1 01:15 BP 92 / 59 RA Supine (auto/reg); Pulse 62 MON; Resp 13; Pulse Ox 94% on R/A; Pain 0/10; tk1 02:00 BP 113 / 62 RA Supine (auto/reg); Pulse 61 MON; Resp 14 S; Pulse Ox 94% on R/A; Pain tk1 0/10; 03:03 BP 122 / 61 RA Supine (auto/reg); Pulse 62 MON; Resp 14 S; Temp 97.9; Pulse Ox 96% on tk1 R/A; Pain 0/10; 11/08 18:06 Body Mass Index 43.74 (122.92 kg, 167.64 cm) ll1 Vitals: 01:15 Cardiac Rhythm Assessment Regular Sinus rhythm. tk1 ED Course: 11/08 18:00 Patient arrived in ED. ja2 18:08 Triage completed. ll1 18:09 Arm band placed on. ll1 19:09 Adam Tijerina MD is Attending Physician. kdr 19:20 transfer approval from receiving facility. tk1 19:20 Patient has correct armband on for positive identification. Placed in gown. Bed in low tk1 position. Call light in reach. Side rails up X2. Adult w/ patient. seat nailer on. Pulse ox on. NIBP on. Warm blanket given. 19:20 Inserted saline lock: 20 gauge in left upper arm, using aseptic technique. Blood tk1 collected. 19:20 No provider procedures requiring assistance completed. tk1 19:32 Karissa Woo is Primary Nurse. tk1 19:33 Blood Culture Sent. tk1 19:33 CBC with Automated Diff Sent. tk1 19:33 Type And Screen Sent. tk1 19:33 Blood Culture Adult (2) Sent. tk1 19:33 CBC with Diff Sent. tk1 19:37 COVID-19/FLU A+B (Document "Date of Onset" if Symptomatic) Sent. tk1 19:40 CMP Sent. tk1 19:40 Lactate Sent. tk1 19:41 Protime (+inr) Sent. tk1 19:41 Ptt, Activated Sent. tk1 21:11 US Abdomen Limited: eval liver/biliary tree In Process Unspecified. EDMS 22:27 CT Abd/Pelvis - IV Contrast Only In Process Unspecified. EDMS 22:44 Lactate Sent. tk1 23:57 initiated a transfer with Keke Gamboa from [facility]. mw2 0319 00:[address] Tijerina with Dr. Maldonado from [facility]. mw2 01:36 initiated a transfer with Landon Grande from [facility]. mw2 02:[address] Tijerina with the Doctor from [facility]. mw2 02:56 [facility] denied due to no IMU beds. mw2 03:02 administrative approval given by Keke Gamboa/patient has been accepted to [address] bed 2402/ Dr. Maldonado accepted the patient in transfer/report to be called to [phone]. 04:07 Patient transferred, IV remains in place. tk1 Administered Medications: 11/08 19:29 Drug: NS 0.9% (30 ml/kg) 30 ml/kg Route: IV; Rate: bolus; Infused Over: 1 hrs; Site: tk1 left upper arm; Delivery: Primary tubing; 19:55 Dru grams of (Cefepime 1 grams, NS 0.9% 100 ml) Route: IVPB; Rate: 200 ml/hr; tk1 Infused Over: 30 mins; Site: left upper arm; Delivery: Primary tubing; 20:37 Follow up: Response: No adverse reaction; IV Status: Completed infusion; IV Intake: tk1 100ml 20:36 Dru.5 grams of (vancoMYCIN 1.5 grams, NS 0.9% 250 ml) Route: IVPB; Rate: calculated tk1 rate; Infused Over: 2 hrs; Site: left upper arm; Delivery: Primary tubing; 22:40 Follow up: Response: No adverse reaction; IV Status: Completed infusion; IV Intake: tk1 250ml 22:15 Drug: NS 0.9% (30 ml/kg) 30 ml/kg Route: IV; Rate: bolus; Infused Over: 135 mins; Site: tk1 left upper arm; Delivery: Primary tubing; 23:26 Follow up: Response: No adverse reaction; IV Status: Completed infusion; IV Intake: tk1 3368ml Intake: 20:37 IV: 100ml; Total: 100ml. tk1 22:40 IV: 250ml; Total: 350ml. tk1 23:00 IV: 4038ml (IV Fluid); Total: 4388ml. tk1 23:26 IV: 3368ml; Total: 7756ml. tk1 Output: 23:00 Urine: 1550ml (Guaman); Total: 1550ml. tk1 11/09 03:32 Urine: 575ml (Guaman); Total: 2125ml. tk1 Outcome: 11/08 23:15 ER care complete, transfer ordered by . kdr 11/09 04:07 [facility], Transfer form completed. tk1 Condition: stable Instructed on the need for transfer. 04:17 Patient left the ED. tk1 Signatures: Dispatcher [employer] EDAdam Marquez MD MD kdr [place], MyKena mw2 Shantel Hadley RN RN brissa1 Zohreh Pereira Tammie tk1 Corrections: (The following items were deleted from the chart) 11/08 18:24 18:06 Acuity: SHARLENE 3 ll1 ll1
--- NOTE | 2021-11-08 23:16 | EDPHYS ---
Physician Documentation [facility] Name: Tahir Alexandre Age: 71 yrs Sex: Male : 1950 Arrival Date: 11/08/2021 Time: 18:00 Bed 16 Private MD: ED Physician Adam Tijerina HPI: 11/08 20:07 This 71 yrs old Male presents to ER via Ambulatory with complaints of Weakness. kdr 20:08 Patient has metastatic pancreatic cancer. Her last chemo was September 30. She has not kdr elected to continue therapy since then. With the last for a few days, she has had intermittent pain around her upper abdomen and adjacent flanks. She had not had this previously. She has had nausea but no vomiting. She denies any change in her bowel habits. Patient is apprehensive about having an IV started and is generally reluctant to continue any intervention or therapy. Patient did agree to a few attempts at an IV. Onset: The symptoms/episode began/occurred 4 day(s) ago. Severity of symptoms: At their worst the symptoms were mild moderate just prior to arrival, in the emergency department the symptoms have improved markedly, There was a slight amount of discomfort but not requiring or requesting pain medication at this time. The patient has not experienced similar symptoms in the past. She had called Dr. Griggs suggested she come to the ED for evaluation. Historical: - Allergies: 18:08 No Known Allergies; ll1 - PMHx: 18:08 Hypercholesterolemia; hyperthyroidism; ll1 - PSHx: 18:08 Cholecystectomy; ll1 - Immunization history:: Client reports receiving the 2nd dose of the Covid vaccine, Flu vaccine status is unknown. - Social history:: Smoking status: Patient denies any tobacco usage or history of. ROS: 20:08 Constitutional: Negative for fever, chills, and weight loss, Eyes: Negative for injury, kdr pain, redness, and discharge, Neck: Negative for injury, pain, and swelling, Cardiovascular: Negative for chest pain, palpitations, and edema, Respiratory: Negative for shortness of breath, cough, wheezing, and pleuritic chest pain, Back: Negative for injury and pain, : Negative for injury, bleeding, discharge, and swelling, MS/Extremity: Negative for injury and deformity, Skin: Negative for injury, rash, and discoloration, Neuro: Negative for headache, weakness, numbness, tingling, and seizure activity. Psych: Negative for depression, anxiety, suicide ideation, homicidal ideation, and hallucinations, Allergy/Immunology: Negative for hives, rash, and allergies, Endocrine: Negative for neck swelling, polydipsia, polyuria, polyphagia, and marked weight changes, Hematologic/Lymphatic: Negative for swollen nodes, abnormal bleeding, and unusual bruising. 20:08 Abdomen/GI: Positive for abdominal pain, nausea. 20:08 Neuro: Positive for weakness, Negative for altered mental status, loss of consciousness, seizure activity. Exam: 19:49 ECG was reviewed by the Attending Physician. kdr 20:08 Constitutional: This is a well developed, well nourished patient who is awake, alert, kdr and in mild distress. Head/Face: Normocephalic, atraumatic. Eyes: Pupils equal round and reactive to light, extra-ocular motions intact. Lids and lashes normal. Conjunctiva and sclera are non-icteric and not injected. Cornea within normal limits. Periorbital areas with no swelling, redness, or edema. Neck: Trachea midline, no thyromegaly or masses palpated, and no cervical lymphadenopathy. Supple, full range of motion without nuchal rigidity, or vertebral point tenderness. No Meningismus. Chest/axilla: Normal chest wall appearance and motion. Nontender with no deformity. No lesions are appreciated. Cardiovascular: Regular rate and rhythm with a normal S1 and S2. No gallops, murmurs, or rubs. Normal PMI, no JVD. No pulse deficits. Respiratory: Lungs have equal breath sounds bilaterally, clear to auscultation and percussion. No rales, rhonchi or wheezes noted. No increased work of breathing, no retractions or nasal flaring. Abdomen/GI: Soft, non-tender, with normal bowel sounds. No distension or tympany. No guarding or rebound. No evidence of tenderness throughout. Back: No spinal tenderness. No costovertebral tenderness. Full range of motion. Skin: Warm, dry with normal turgor. Normal color with no rashes, no lesions, and no evidence of cellulitis. MS/ Extremity: Pulses equal, no cyanosis. Neurovascular intact. Full, normal range of motion. Neuro: Awake and alert, GCS 15, oriented to person, place, time, and situation. Cranial nerves II-XII grossly intact. Motor strength 5/5 in all extremities. Sensory grossly intact. Cerebellar exam normal. Normal gait. 20:08 Psych: Behavior/mood is pleasant, cooperative, anxious, depressed, Patient appears generally depressed as she considers her end-of-life status and futility of further interventions overall. Vital Signs: 18:06 BP 98 / 55; Pulse 70; Resp 18; Temp 97.6; Pulse Ox 95% on R/A; Weight 122.92 kg; Height ll1 5 ft. 6 in. (167.64 cm); Pain 0/10; 19:21 BP 77 / 43 RA Supine (auto/reg); Pulse 60 MON; Resp 13 S; Pulse Ox 97% on R/A; tk1 19:28 BP 88 / 47 RA Supine (auto/reg); Pulse 57 MON; Resp 12 S; Pulse Ox 92% on R/A; tk1 19:30 BP 95 / 38 RA Supine (auto/reg); Pulse 57 MON; Resp 11 S; Pulse Ox 90% on R/A; tk1 19:45 BP 111 / 45 RA Supine (auto/reg); Pulse 62 MON; Resp 14 S; Pulse Ox 100% on 2 lpm NC; tk1 20:00 BP 104 / 54 RA Supine (auto/reg); Pulse 60 MON; Resp 12 S; Pulse Ox 100% on 2 lpm NC; tk1 20:30 BP 106 / 55 RA Supine (auto/reg); Pulse 63 MON; Resp 16 S; Pulse Ox 100% on 2 lpm NC; tk1 21:00 BP 100 / 63 RA Supine (auto/reg); Pulse 64 MON; Resp 10 S; Pulse Ox 100% on 2 lpm NC; tk1 22:00 BP 111 / 62 RA Supine (auto/reg); Pulse 63 MON; Resp 16 S; Temp 98(O); Pulse Ox 100% on tk1 2 lpm NC; Pain 0/10; 22:30 BP 108 / 54 RA Supine (auto/reg); Pulse 58 MON; Resp 13; Pulse Ox 100% on 2 lpm NC; tk1 23:00 BP 113 / 62 RA Supine (auto/reg); Pulse 60 MON; Resp 10; Pulse Ox 99% on 2 lpm NC; Pain tk1 0/10; 23:30 BP 123 / 63 RA Supine (auto/reg); Pulse 61 MON; Resp 12 S; Pulse Ox 95% on R/A; tk1 11/09 00:00 BP 108 / 58 RA Supine (auto/reg); Pulse 63 MON; Resp 15 S; Pulse Ox 93% on R/A; tk1 01:15 BP 92 / 59 RA Supine (auto/reg); Pulse 62 MON; Resp 13; Pulse Ox 94% on R/A; Pain 0/10; tk1 02:00 BP 113 / 62 RA Supine (auto/reg); Pulse 61 MON; Resp 14 S; Pulse Ox 94% on R/A; Pain tk1 0/10; 03:03 BP 122 / 61 RA Supine (auto/reg); Pulse 62 MON; Resp 14 S; Temp 97.9; Pulse Ox 96% on tk1 R/A; Pain 0/10; 18 18:06 Body Mass Index 43.74 (122.92 kg, 167.64 cm) ll1 MDM: 11/08 20:08 Data reviewed: vital signs, nurses notes, lab test result(s), radiologic studies. kdr Counseling: I had a detailed discussion with the patient and/or guardian regarding: the historical points, exam findings, and any diagnostic results supporting the discharge/admit diagnosis, lab results, radiology results, the need for outpatient follow up. 23:15 Patient medically screened. kdr 23:16 ED course: Patient had a gangrenous gallbladder that was removed approximately 2 weeks kdr ago. Since then he seems to have progressed well until yesterday when he started to feel generally poor. Today he was very tired and weak and took a nap. When he awoke he was having chills and hot flashes. He has continued to feel weak overall.. ED course: Patient's presentation and findings were presented to Dr. Constantino the surgeon who had performed the cholecystectomy approximately 2 weeks ago. After review of the findings and laboratory values, it was determined that the patient will require an ERCP for further evaluation and possible treatment. Gastroenterology and associated services not currently available to perform this procedure and so transfer was recommended.. 11/09 02:44 ED course: [place] to see [facility] due to lack of beds.. kdr 11/08 19:23 Order name: Blood Culture Adult (2) kdr 11/08 19:23 Order name: CBC with Diff kdr 11/08 19:23 Order name: CMP; Complete Time: 20:55 kdr 11/08 19:23 Order name: Lactate; Complete Time: 20:55 kdr 11/08 19:23 Order name: Protime (+inr); Complete Time: 20:55 kdr 11/08 19:23 Order name: Ptt, Activated; Complete Time: 20:55 kdr 11/08 19:23 Order name: Type And Screen [facility] 11/08 19:24 Order name: Blood Culture EDVT 11/08 19:24 Order name: CBC with Automated Diff; Complete Time: 20:10 EDMS 11/08 19:28 Order name: COVID-19/FLU A+B (Document "Date of Onset" if Symptomatic); Complete Time: mw2 20:55 11/08 19:49 Order name: Glucose, Ancillary Testing; Complete Time: 20:55 EDMS 11/08 20:43 Order name: CT Abd/Pelvis - IV Contrast Only 11/08 20:49 Order name: ABO/RH no charge; Complete Time: 20:55 EDMS 11/08 22:31 Order name: Lactate; Complete Time: 23:11 mw2 11/08 19:23 Order name: Accucheck; Complete Time: 19:37 kdr 11/08 19:23 Order name: Cardiac monitoring; Complete Time: 19:37 kdr 11/08 19:23 Order name: EKG - Nurse/Tech; Complete Time: 19:40 kdr 11/08 19:23 Order name: IV Saline Lock - Large Bore; Complete Time: 19:40 kdr 11/08 19:23 Order name: Labs collected and sent; Complete Time: 19:40 kdr 11/08 19:23 Order name: O2 Per Protocol; Complete Time: 19:40 kdr 11/08 19:23 Order name: O2 Sat Monitoring; Complete Time: 19:40 kdr 11/08 20:46 Order name: US Abdomen Limited: eval liver/biliary tree; Complete Time: 21:36 bb EC/18 19:49 Rate is 57 beats/min. Rhythm is regular, Sinus bradycardia with No ectopy. QRS [place] is kdr Normal. PA interval is normal. QRS interval is normal. Clinical impression: Sinus bradycardia. Administered Medications: 19:29 Drug: NS 0.9% (30 ml/kg) 30 ml/kg Route: IV; Rate: bolus; Infused Over: 1 hrs; Site: tk1 left upper arm; Delivery: Primary tubing; 19:55 Dru grams of (Cefepime 1 grams, NS 0.9% 100 ml) Route: IVPB; Rate: 200 ml/hr; tk1 Infused Over: 30 mins; Site: left upper arm; Delivery: Primary tubing; 20:37 Follow up: Response: No adverse reaction; IV Status: Completed infusion; IV Intake: tk1 100ml 20:36 Dru.5 grams of (vancoMYCIN 1.5 grams, NS 0.9% 250 ml) Route: IVPB; Rate: calculated tk1 rate; Infused Over: 2 hrs; Site: left upper arm; Delivery: Primary tubing; 22:40 Follow up: Response: No adverse reaction; IV Status: Completed infusion; IV Intake: tk1 250ml 22:15 Drug: NS 0.9% (30 ml/kg) 30 ml/kg Route: IV; Rate: bolus; Infused Over: 135 mins; Site: tk1 left upper arm; Delivery: Primary tubing; 23:26 Follow up: Response: No adverse reaction; IV Status: Completed infusion; IV Intake: tk1 3368ml Disposition Summary: 11/08/21 23:15 Transfer Ordered Reason: Higher level of care kdr Condition: Fair kdr Problem: new kdr Symptoms: have worsened kdr Transfer Location: [facility](11/09/21 02:44) kdr Accepting Physician: Dr. Maldonado(11/09/21 04:17) tk1 Diagnosis - Weakness kdr - Upper abdominal pain, unspecified kdr Forms: - Medication Reconciliation Form kdr - SBAR form kdr Signatures: Dispatcher [employer] [facility] Adam Tijerina MD MD kdr Rod Mcfarlane, CRIME VICTIM SPECIALIST-C CRIME VICTIM SPECIALIST-Cla1 Shantel Hadley RN RN ll1 Karissa Woo tk1 Corrections: (The following items were deleted from the chart) 11/09 02:44 03 23:15 [facility] kdr kdr 11/09 02:44 11/08 23:15 [facility] kdr kdr 11/09 04:17 02:44 Dr. Maldonado kdr tk1
[2021-11-09 05:40] VITALS: BP 122/61; TEMP 97.9; O2SAT 96
--- NOTE | 2021-11-09 21:02 | RAD REPORT ---
EXAM DESCRIPTION: CT - Abdomen Pelvis W Contrast - 11/09/2021 5:09 am CLINICAL HISTORY: 71 years, Male, ABD PAIN COMPARISON: 10/26/2021 TECHNIQUE: Contrast-enhanced images of the abdomen and pelvis were performed utilizing 5 mm slice th ickness at 5 mm interval reconstruction from the lung bases to the ischial tuberosities after the adm inistration IV contrast. In addition multiplanar reformats in the coronal and sagittal plane were obtained and reviewed. This exam was performed according to our departmental dose-optimization protocol, which includes auto mated exposure control, adjustment of the mA and/or kV according to patient size and/or use of iterat luis m reconstruction technique. FINDINGS: The lung bases demonstrate to be clear. There is a small hiatal hernia The liver demonstrate decreased attenuation corresponding to fatty infiltration. Surgical clips withi n the gallbladder fossa correspond to previous cholecystectomy. Previous GINNY drainage catheter within the right upper quadrant has been removed. There are no significant abnormal fluid collections. The pancreatic head is partially fatty replaced. Otherwise the pancreas, spleen and adrenal glands demonstrate to be unremarkable, no focal lesions ar e noted. The kidneys demonstrate normal uptake of contrast media. No evidence for nephrolithiasis and/or hydro nephrosis. Grossly the unopacified stomach, small bowel and large bowel demonstrate to be within normal limits. There is no evidence for bowel dilatation/or free air. The appendix is normal. There is diverticu losis within the sigmoid colon. The urinary bladder demonstrate presence of a Guaman catheter questionable layering decreased signal c ould correspond to debris and/or streak artifact. The prostate gland is normal. The aorta demonst rate minimal atheromatous plaque formation. There is no retroperitoneal lymphadenopathy. There is n o evidence for ascites/or significant abnormal fluid collections. The rest of the soft tissue and bon y structures are within normal limits. There is a small bilateral inguinal hernias containing omentum slightly greater right than left IMPRESSION: Status post cholecystectomy. Previous GINNY-drain catheter has been removed. There are no s ignificant abnormal fluid collections. Fatty infiltration of the liver. Diverticulosis without evidence of acute diverticulitis. Guaman catheter in the urinary bladder similar to prior study. Questionable layering material could gonzalez ggest the possibility of debris. Small bilateral inguinal hernias containing omentum slightly greater right than left. Electronically signed by: Kvng Canales MD 11/08/2021 10:50 PM CDT Due to temporary technical issues with the PACS/Fluency reporting system, reports are being signed by the in house radiologists without review as a courtesy to insure prompt reporting. The interpreting radiologist is fully responsible for the content of the report.
--- NOTE | 2021-11-11 08:25 | EKG ---
Test Date: 2021-11-08 Test Time: 19:26:35 Die Hardener: MEASUREMENT RESULTS: Intervals: Rate: 57 RI: 190 QRSD: 90 QT: 464 QTc: 451 Veyo: P: 49 RI: 190 QRS: 55 T: 63 INTERPRETIVE STATEMENTS: Sinus bradycardia Otherwise normal ECG Compared to ECG 10/22/2021 21:10:00 Sinus rhythm no longer present Myocardial infarct finding no longer present Electronically Signed On 11-11-21 08:21:11 CDT by Sarkis Downey
== END 2021-11-09 04:17 | disposition short-term general hospital (02) ==
LOC: ER 17:57
DX: R53.1 Weakness (principal); R10.10 Upper abdominal pain, unspecified; R11.0 Nausea; C25.9 Malignant neoplasm of pancreas, unspecified; E78.00 Pure hypercholesterolemia, unspecified; Z20.822 Contact with and (suspected) exposure to COVID-19
CPT/HCPCS: 96365; 96367; 93005; 87040 ×2; 85025; 36415; 86900; 86850; 85610; 86901; 82947; 83605 ×2; 85730; 80053; 0240U; 74177; 76705; 99285; 96366; Q9967; J3370; J7050; J7030 ×2; J0692

== ENCOUNTER 2022-01-07 08:38 | Day surgery (SDC) | payer OTHER ==
[2022-01-02 15:35] LABS: Protime INR 0.96
[2022-01-02 15:36] LABS: Absolute Lymphocytes (CBC) 1.6 K/uL (0.7-4.9); Hematocrit 36.8 % (39.6-49.0); MPV 8.3 fL (7.6-11.3); RBC Red Blood Cell Count 4.15 M/uL (4.33-5.43)
[2022-01-02 15:46] LABS: Potassium 3.3 mmol/L (3.5-5.1)
[~2022-01-07 08:38] MED LIST: AMPICILLIN SODIUM 2 GM in NA CHLORIDE 0.9% 100 ML IVPB SCH; Gentamicin Inj 240 MG in NA CHLORIDE 0.9% 100 ML IV SCH
[2022-01-07] MEDS ORDERED: Ringers Lactate 1,000 ML IV ONE (09:02)
[2022-01-07] MEDS ORDERED: propofoL 200 MG/20 ML VIAL IV ONE (09:55)
[2022-01-07] MEDS ORDERED: FENTANYL CITR 100 MCG/2 ML ONE ×2 (09:55→12:10)
[2022-01-07] MEDS ORDERED: NEOSTIGMINE 1 MG/ML -10 ML VIAL ONE (09:55)
[2022-01-07] MEDS ORDERED: ONDANSETRON 4 MG/2 ML VIAL ONE (09:55)
[2022-01-07] MEDS ORDERED: GLYCOPYRROLATE 0.2 MG/ML SYR ONE (09:55)
[2022-01-07] MEDS ORDERED: LIDOCAINE 1% MPF 5 ML VIAL ONE (09:55)
[2022-01-07] MEDS ORDERED: ROCURONIUM 50 MG/5 ML VIAL IV ONE (10:27)
[2022-01-07] MEDS ORDERED: EPHEDRINE SULF 50 MG/ML VIAL ONE (11:36)
[2022-01-07] MEDS: HYDROMORPHONE HCL 1 MG/ML INJ ONE ×2 (12:56→13:01)
[2022-01-07] MEDS ORDERED: CODEINE 30MG/APAP 300MG TAB PO PRN (13:28)
[2022-01-07] MEDS ORDERED: PHENAZOPYRIDINE 100MG TAB PO ONE (13:28)
[2022-01-07 14:21] VITALS: TEMP 97.2
[2022-01-07 15:01] VITALS: BP 128/70; O2SAT 98
--- NOTE | 2022-01-07 23:57 | OP ---
Surgeon: TERRY PENDLETON Preoperative Diagnoses: 1.Benign prostatic hypertrophy with lower urinary tract obstruction. 2.Acute urinary retention. Postoperative Diagnoses: 1.Benign prostatic hypertrophy with lower urinary tract obstruction. 2.Acute urinary retention. Principle Procedures: Bipolar transurethral resection of the prostate. Indication For Procedure: Mr. Alexandre presented to the Urology Clinic having experienced urinary ret ention following a laparoscopic surgical procedure. He underwent evaluation which revealed the prese nce of significant obstruction and therefore presents for definitive management. Procedure In Detail: The patient was consented in the preoperative holding area before being transfe rred to the operative suite where general anesthesia was induced. He was given ampicillin and gentam icin IV antimicrobial prophylaxis and pneumo boots were provided for DVT prophylaxis. He was placed in the lithotomy position, padded and secured to the table appropriately. His genitalia were prepped using Hibiclens and he was draped in standard fashion. The urethral Guaman catheter had been removed . The case was begun using a 26-Tongan resectoscope and a visual obturator to traverse the urethra; however, entry into the bladder was difficult due to a significantly elevated bladder neck and signif icant lateral lobar hypertrophy. As a result, once into the bladder, I decompressed the bladder and surveyed it. There were no papillary mucosal lesions, foreign bodies or stones, but as had been prev iously noted, there was significant trabeculation with cellule formation and a dome diverticulum. As a result, I utilized the bipolar resectoscope loop to begin resection of the elevated median lobe in travesically projecting down to the level of the bladder neck. I then continued the resection of the median bar to create a smooth trough all the way down to the verumontanum across what was about a 4 cm urethra. Once a smooth trough had been created, I continued the resection into the left lateral l obe starting initially at the bladder neck and then extending across the mid zone of the prostate. S imilar resection was performed in the right lateral lobe at the bladder neck and into the mid zone of the prostate. I then resected anterior lobar intravesically projecting tissue and overhanging tissu e. I then continued the resection apically where the lateral lobar hypertrophy was interdigitating a nd resected the tissue until the lobes were no longer kissing. Once the apical tissue had been resec maria e and beyond that, there was a clear an open channel from the verumontanum through the bladder neck , I touched up any residual adenomatous hypertrophy visible bulging into the prostatic urethral lumen by resecting it, and Bird evacuated all prostate chips from within the bladder. Any prostate chips that did not come out using the Ellik were directly removed under vision. I then performed a carefu l search for bleeding and fulgurated any and all bleeding vessels with the bladder completely decompr essed to ensure complete hemostasis. Once there was no ongoing oozing of any kind of blood with irri shawn fluid off and the bladder completely decompressed, the case was considered complete. I then ref illed the bladder and removed the resectoscope. I fulgurated any bleeders at the apical zone of the prostate that were perhaps not previously visible. I then retracted and removed the resectoscope and replaced a 24-Tongan 3-way Guaman catheter into his bladder with ease. Approximately 40 cc of steril e water was placed into the balloon, and the catheter was placed to moderate traction after the patie nt was taken out of the lithotomy position. He was then awakened from general anesthesia, transferre d to a stretcher, and then transferred to the recovery room in good condition. Complications: None. Discharge Disposition: He may follow up in the Urology Clinic on either Thursday or Thursday for cathete r removal and voiding trial. I counseled the patient extensively preoperatively about the potential risk of urge incontinence given the hostile appearance of his bladder once the obstruction had been removed. They were prepared for this and understand they may require a nticholinergic medical therapy. DAPHNE/CUCAL Voice ID: [id number] Report ID: [id number]
== END 2022-01-07 14:50 | disposition home or self-care (01) ==
LOC: OR 08:38
PROVIDERS: ATTEND Urology
PROC: 0VT08ZZ Resection of Prostate, Via Natural or Artificial Opening Endoscopic (ICD-10-PCS; principal; 2022-01-07 11:30)
DX: N40.1 Benign prostatic hyperplasia with lower urinary tract symptoms (principal); R33.9 Retention of urine, unspecified; Z20.822 Contact with and (suspected) exposure to COVID-19
CPT/HCPCS: 87088; 85025; 87086; 80048; 36415; 85610; 88305; 87077; 87186; 52601; U0003; J2704; J2710; J1580; J3010 ×2; J1170; J7120; J2405; J0290

== ENCOUNTER 2024-03-26 16:12 | Emergency (ER) | payer OTHER ==
[2024-03-26] MEDS ORDERED: TENECTEPLASE 50 MG/10 ML VIAL IV ONE (16:32)
--- NOTE | 2024-03-26 16:48 | RAD REPORT ---
EXAM DESCRIPTION: CT - Ct Stroke Brain Wo Cont - 03/26/2024 4:42 pm CLINICAL HISTORY: STROKE ALERT Headache, drowsiness, CVA COMPARISON: <Comparisons> TECHNIQUE: All CT scans are performed using dose optimization technique as appropriate and may inclu de automated exposure control or mA/KV adjustment according to patient size. FINDINGS: No intracranial hemorrhage, hydrocephalus or extra-axial fluid collection.Mild brain atrop hy.No areas of brain edema or evidence of midline shift. The paranasal sinuses and mastoids are clear. The calvarium is intact. IMPRESSION: No acute intracranial abnormality. The findings were discussed with Dr Mirza in the ER on 03/26/2024 at 4:37 p.m. by telephone.
[2024-03-26 16:52] LABS: Absolute Basophils 0.1 K/uL (0-0.5); Absolute Eosinophils 0.3 K/uL (0-0.5); Absolute Lymphocytes (CBC) 2.1 K/uL (0.7-4.9); Absolute Neutrophil 4.8 K/uL (1.8-8.0); Eosinophils % 3.5 % (0-4.4); Hemoglobin 13.9 g/dL (13.6-17.9); Lymphocytes % 25.8 % (15.3-44.8); MCH 29.8 pg (27.0-35.0); MCHC 33.9 g/dL (32.0-36.0); MCV 87.8 fL (80-100); MPV 8.5 fL (7.6-11.3); Monocytes % 12.2 % (3.3-12.3); Neutrophils % 57.5 % (41.7-73.7); Nucleated Red Blood Cells % 0.1 % (0-0); Platelets 259 thou/uL (152-406); RBC Red Blood Cell Count 4.67 M/uL (4.33-5.43); Red Cell Distribution Width 13.7 % (12.1-15.2)
[2024-03-26 17:05] LABS: PT Prothrombin Time 11.4 SECONDS (9.4-12.5); PTT, Activated Partial Thromb 31.4 SECONDS (24.3-36.9); Protime INR 1.02
[2024-03-26 17:11] LABS: Albumin 3.8 g/dL (3.4-5.0); Albumin/Globulin Ratio 1.1 (1.1-1.8); Anion Gap 8.9 mEq/L (5.0-15.0); Bilirubin Direct 0.3 mg/dL (0-0.2); Bilirubin Indirect, Calculated 0.8 mg/dL (0.2-0.8); Bilirubin Total 1.1 mg/dL (0.2-1.0); Globulin 3.4 g/dL (2.3-3.5); Magnesium 2.4 mg/dL (1.6-2.4); Potassium 3.9 mEq/L (3.5-5.1); Protein, Total 7.2 g/dL (6.4-8.2); Troponin High Sensitivity 13.6 pg/mL (<58.9)
--- NOTE | 2024-03-26 17:24 | RAD REPORT ---
EXAM DESCRIPTION: RAD - Chest Single View - 03/26/2024 5:08 pm CLINICAL HISTORY: cva Chest pain. COMPARISON: <Comparisons> FINDINGS: Portable technique limits examination quality. The lungs are grossly clear. The heart is normal in size. No displaced fractures. IMPRESSION: No acute intrathoracic process suspected.
--- NOTE | 2024-03-26 17:40 | RAD REPORT ---
EXAM DESCRIPTION: CT - Head angio - 03/26/2024 5:26 pm CLINICAL HISTORY: stroke alert CVA headache COMPARISON: <Comparisons> TECHNIQUE: CT angiography of the head was performed with MIPs. All CT scans are performed using dose optimization technique as appropriate and may include automated exposure control or mA/KV adjustment according to patient size. FINDINGS: No evidence of large vessel occlusion. No evidence of aneurysm is detected. No flow-limiti ng stenosis or vascular malformation identified. Antegrade flow is seen in the vertebral arteries. The visualized dural venous sinuses are patent. IMPRESSION: No significant flow abnormality is detected.
--- NOTE | 2024-03-26 17:43 | RAD REPORT ---
EXAM DESCRIPTION: CT - Neck Angio - 03/26/2024 5:26 pm CLINICAL HISTORY: cva COMPARISON: <Comparisons> TECHNIQUE: CT angiography of the neck vessels was performed with MIPs. All CT scans are performed using dose optimization technique as appropriate and may include automated exposure control or mA/KV adjustment according to patient size. FINDINGS: A left aortic arch is identified with normal three vessel configuration of the great vesse ls. There is significant mixed plaque seen proximal right ICA resulting in significant stenosis of 80% ba sed on NASCET criteria. 99% stenosis seen of the proximal left ICA post bulbar location. Normal flow is seen within both vertebral arteries. 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 80% stenosis proximal right ICA. NASCET criteria used. Mild 0-49% stenosis Moderate 50-69% stenosis Severe 70-99% stenosis
--- NOTE | 2024-03-26 18:09 | ER ---
Nurse's Notes [facility] Name: Tahir Alexandre Age: 74 yrs Sex: Male : 1950 Arrival Date: 03/26/2024 Time: 16:12 Bed 4 Private MD: Diagnosis: Monocular vision loss;Acute CVA;Severe carotid stenosis Presentation: 03/26 16:15 Chief complaint: Patient states: Couldn't see out of my left eye, onset about 30 nj1 minutes or less, now it is coming back. "Feels like there is something in front of it". Coronavirus screen: Vaccine status: Patient reports receiving the 2nd dose of the covid vaccine. Ebola Screen: Patient denies travel to an Ebola-affected area in the 21 days before illness onset. Initial Sepsis Screen: Does the patient meet any 2 criteria? No. Patient's initial sepsis screen is negative. Does the patient have a suspected source of infection? No. Patient's initial sepsis screen is negative. Risk Assessment: Do you want to hurt yourself or someone else? Patient reports no desire to harm self or others. Onset of symptoms was March 26, 2024 at 15:45. 16:15 Method Of Arrival: Ambulatory nj1 16:15 Acuity: SHARLENE 2 nj1 16:30 An acute neurological deficit is present. The charge nurse has been notified. The db patient has been moved to a treatment area. Pre-hospital glucose is not applicable to this patient. Triage Assessment: 16:30 The onset of the patients symptoms was March 26, 2024 at 17:30. General: Appears in no db apparent distress. comfortable, Behavior is calm, cooperative. Stroke Activation: Symptom onset < 3 hours Physician: ED Attending; Name: ; Notified At: ; Arrived At: Physician: Mid-Level Provider; Name: ; Notified At: ; Arrived At: Physician: [not used]; Name: ; Notified At: ; Arrived At: Physician: [not used]; Name: ; Notified At: ; Arrived At: Physician: [not used]; Name: ; Notified At: ; Arrived At: Historical: - Allergies: 16:20 No Known Allergies; nj1 - Home Meds: 16:37 hydrocodone-acetaminophen 7.5-325 mg Oral tab 1 tab three times a day [Active]; aa5 gabapentin 800 mg Oral tab 1 tab 3 times per day [Active]; methocarbamol 500 mg Oral tab 1 tabs twice a day [Active]; duloxetine 60 mg Oral CDRS 1 cap once daily [Active]; hydrochlorothiazide 12.5 mg oral tablet 3 times per week [Active]; levothyroxine 100 mcg tab 1 tab once daily [Active]; telmisartan 80 mg Oral tab 1 tab once daily [Active]; nebivolol 20 mg oral tablet once [Active]; Vascepa 1 gram Oral cap 2 caps daily [Active]; famotidine 40 mg oral tablet once [Active]; mesalamine 1.2 gram oral tablet, delayed release (enteric coated) 2 tabs twice a day [Active]; atorvastatin 40 mg oral tablet daily [Active]; - PMHx: 16:20 Chronic pain; Hypercholesterolemia; Hypertensive disorder; hyperthyroidism; nj1 - PSHx: 16:20 Cholecystectomy; nj1 - Immunization history:: Client reports receiving the 2nd dose of the Covid vaccine. - Infectious Disease History:: Denies. - Social history:: Smoking status: Patient denies any tobacco usage or history of. - Family history:: not pertinent. Screenin:49 Arlene Swallow Protocol Exclusion Criteria: Unable to remain alert for testing: No NPO kc6 for medical/surgical reason by provider order No Brief Cognitive Screen What is your name? Normal, Where are you right now? Normal, What year is it? Normal. Oral Mechanism Examination Facial Symmetry: Normal, Motion: Normal, Lip Closure: Normal, Oral Mechanism Result: Normal. 3 oz Water Swallow Challenge: Pt able to drink all water without stopping, coughing, choking or throat clearing: Yes Result: PASS MD Notified: Ashish Mirza MD. 16:49 VAN Screening: Arm Drift: Patient shows no arm weakness. 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 Provider notified of +VAN scoring. Aphasia: No aphasia noted. Neglect: No neglect noted. 17:00 [facility] ED Fall Risk Assessment (Adult) History of falling in the last 3 months, db including since admission No falls in past 3 months (0 pts) Confusion or Disorientation No (0 pts) Intoxicated or Sedated No (0 pts) Impaired Gait No (0 pts) Mobility Assist Device Used No (0 pt) Altered Elimination No (0 pt) Score/Fall Risk Level 0 - 2 = Low Risk Oriented to surroundings, Maintained a safe environment. Abuse screen: Denies threats or abuse. Denies injuries from another. Nutritional screening: No deficits noted. Tuberculosis screening: No symptoms or risk factors identified. Assessment: 16:29 Reassessment: Dr. Mirza at bedside doing an ultrasound of the left eye. kc6 16:30 Reassessment: CODE STROKE CALLED. SYMPTOMS STARTED 30 MINUTES AGO. db 16:45 VAN Scoring: Arm Drift: Patients demonstrates NO arm weakness. Patient is VAN Negative. 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 Provider notified of +VAN scoring. Aphasia: No aphasia noted. Neglect: No neglect noted. [place] Swallow Protocol Brief Cognitive Screen What is your name? Normal, Where are you right now? Normal, What year is it? Normal. Oral Mechanism Examination Facial Symmetry: Normal, Motion: Normal, Lip Closure: Normal, Oral Mechanism Result: Normal. 3 oz Water Swallow Challenge: Pt able to drink all water without stopping, coughing, choking or throat clearing: Yes Result: PASS MD Notified: Ashish Mirza MD. Arlene Swallow Protocol Exclusion Criteria: Exclusion Criteria Result: Proceed. TNKase (Tenecteplase) Screening: Indications: Definite evidence of stroke, ischemic, embolic, or hypertensive: Yes. Treatment will start within 4.5 hours onset of symptoms: Yes. No evidence of intracranial hemorrhage or CT of head and no evidence of peripheral hemorrhage or recent CVA: Yes. Consent for thrombolytic therapy: Yes. General: Appears in no apparent distress. comfortable, Behavior is calm, cooperative. Pain: Denies pain. Neuro: Level of Consciousness is awake, alert, obeys commands, Oriented to person, place, time, situation, Moves all extremities. Speech is normal, Facial symmetry appears normal. 17:00 Reassessment: SEE TENECTEPLASE ADMINISTRATION AND ASSESSMENT FLOWSHEET. db 18:22 Reassessment: Patient appears in no apparent distress at this time. Patient and/or db family updated on plan of care and expected duration. Pain level reassessed. Patient is alert, oriented x 3, equal unlabored respirations, skin warm/dry/pink. Patient states feeling better. Patient states symptoms have improved. Vital Signs: 16:15 BP 111 / 65; Pulse 80; Resp 18; Temp 97.2(O); Pulse Ox 93% ; Weight 108.86 kg; Height 5 nj1 ft. 6 in. ; 17:00 BP 115 / 78; Pulse 78; Resp 16; Pulse Ox 96% on R/A; db 17:30 BP 126 / 72; Pulse 72; Resp 16; Pulse Ox 95% ; db 18:00 BP 129 / 76; Pulse 72; Resp 16; Pulse Ox 95% on R/A; db 19:08 BP 125 / 81; Pulse 71; Resp 14; Temp 98.2; Pulse Ox 95% ; Pain 0/10; jm12 19:27 BP 133 / 80; Pulse 65; Pulse Ox 99% ; jm12 20:00 BP 132 / 79; Pulse 68; Resp 16; Pulse Ox 99% ; Pain 0/10; 12 21:20 BP 139 / 83; Pulse 72; Resp 16; Pulse Ox 100% ; Pain 0/10; jm12 16:15 Body Mass Index 38.74 (108.86 kg, 167.64 cm) nj1 19:08 Pain Scale: Adult [facility] 20:00 Pain Scale: Adult [facility] 21:20 Pain Scale: Adult [facility] Vitals: 17:30 Cardiac Rhythm Assessment Regular. db Nasir Coma Score: 17:00 Eye Response: spontaneous(4). Motor Response: obeys commands(6). Verbal Response: db oriented(5). Total: 15. 19:08 Eye Response: spontaneous(4). Motor Response: obeys commands(6). Verbal Response: jm12 oriented(5). Total: 15. 19:27 Eye Response: spontaneous(4). Motor Response: obeys commands(6). Verbal Response: jm12 oriented(5). Total: 15. NIH Stroke Scale Scores: 16:40 NIHSS Score: 2 db 17:30 NIHSS Score: 0 db 19:09 NIHSS Score: 0 [facility] ED Course: 16:14 Patient arrived in ED. im 16:15 Ashish Mirza MD is Attending Physician. rt 16:20 Triage completed. nj1 16:21 Arm band placed on right wrist. nj1 16:[address] stretcher. db 16:40 Inserted saline lock: 20 gauge in left antecubital area, using aseptic technique. db Flushed with 10 mL NS. 16:44 CT Stroke Brain w/o Contrast In Process Unspecified. EDMS 16:45 Inserted saline lock: 18 gauge in right antecubital area, using aseptic technique. kc6 Blood collected. Flushed with 10 mL NS. 16:50 EKG done, by ED staff, reviewed by Ashish Mirza MD. db 16:56 Annelise Brunner, RN is Primary Nurse. db 16:56 Patient has correct armband on for positive identification. Placed in gown. Bed in low kc6 position. Call light in reach. Side rails up X2. Adult w/ patient. quality assurance monitor chassis on. Pulse ox on. NIBP on. Pillow given. 17:10 Stroke CXR 1 View In Process Unspecified. EDMS 17:[address] via stretcher. db 17:28 CT Neck Angio In Process Unspecified. EDMS 17:28 Head angio In Process Unspecified. EDMS 18:20 Initiate transfer to [facility] spoke with Rissa at 1820. oh1 18:23 No provider procedures requiring assistance completed. db 20:09 Report given to [facility] ER in [place]. [facility] 20:09 Spoke with Lidia CHAUDHARI. oh1 20:17 Pt has been accepted at [facility] ED by \\T\\[id number], accepting coordinator Keke \\T\\[id number]. af 3 21:20 Patient transferred, IV remains in place. intact. [facility] Administered Medications: 16:49 Drug: TNK FOR STROKE - Tenecteplase IV (Administer 10 ml NS flush BEFORE and db AFTER tenecteplase) 0.25 mg/kg IV at per protocol once; MAX DOSE 25 mg, IVP over 5 seconds {Co-Signature: kc6 (Cate Acosta RN).} Route: IV; Rate: per protocol; Site: right antecubital; 18:25 Follow up: Response: No adverse reaction; IV Status: Completed infusion db Point of Care Testing: Blood Glucose: 17:05 Blood Glucose: 109 mg/dL; kc6 Ranges: Outcome: 18:08 ER care complete, transfer ordered by . rt 21:20 Transferred by ground EMS to [facility] [place] [facility] 21:20 Condition: stable 21:20 Instructed on the need for transfer, 21:22 Patient left the ED. mansi NIH Stroke Scale - NIH Stroke Score Date: 03/26/2024 Time: 16:40 Total Score = 2 10. Dysarthria (speech clarity - read or repeat words) - 0(Normal) 11. Extinction and Inattention (visual/tactile/auditory/spatial/personal) - 0(No abnormality) 1a. Level of Consciousness (LOC) - 0(Alert) 1b. Level of Consciousness (LOC) (Month \\T\\ Age) - 0(Both) 1c. LOC Commands (Open \\T\\ Closes Eyes/Medical Billing Instructor) - 0(Both) 2. Best Gaze (Lateral Gaze Paresis) - 0(Normal) 3. Visual Field Loss - 2(Complete hemianopia) 4. Facial Palsy - 0(Normal) 5a. Left Arm: Motor (10-second hold) - 0(No drift) 5b. Right Arm: Motor (10-second hold) - 0(No drift) 6a. Left Leg: Motor (5-second hold - always test supine) - 0(No drift) 6b. Right Leg: Motor (5-second hold - always test supine) - 0(No drift) 7. Limb Ataxia (finger/nose \\T\\ heel/philippe - test with eyes open) - 0(Absent) 8. Sensory Loss (pinprick arms/legs/face) - 0(Normal) 9. Best Language: Aphasia (description/naming/reading) - 0(No aphasia) Initials: db NIH Stroke Scale - NIH Stroke Score Date: 03/26/2024 Time: 17:30 Total Score = 0 10. Dysarthria (speech clarity - read or repeat words) - 0(Normal) 11. Extinction and Inattention (visual/tactile/auditory/spatial/personal) - 0(No abnormality) 1a. Level of Consciousness (LOC) - 0(Alert) 1b. Level of Consciousness (LOC) (Month \\T\\ Age) - 0(Both) 1c. LOC Commands (Open \\T\\ Closes Eyes/Medical Billing Instructor) - 0(Both) 2. Best Gaze (Lateral Gaze Paresis) - 0(Normal) 3. Visual Field Loss - 0(No visual loss) 4. Facial Palsy - 0(Normal) 5a. Left Arm: Motor (10-second hold) - 0(No drift) 5b. Right Arm: Motor (10-second hold) - 0(No drift) 6a. Left Leg: Motor (5-second hold - always test supine) - 0(No drift) 6b. Right Leg: Motor (5-second hold - always test supine) - 0(No drift) 7. Limb Ataxia (finger/nose \\T\\ heel/philippe - test with eyes open) - 0(Absent) 8. Sensory Loss (pinprick arms/legs/face) - 0(Normal) 9. Best Language: Aphasia (description/naming/reading) - 0(No aphasia) Initials: thania NIH Stroke Scale - NIH Stroke Score Date: 03/26/2024 Time: 19:09 Total Score = 0 10. Dysarthria (speech clarity - read or repeat words) - 0(Normal) 11. Extinction and Inattention (visual/tactile/auditory/spatial/personal) - 0(No abnormality) 1a. Level of Consciousness (LOC) - 0(Alert) 1b. Level of Consciousness (LOC) (Month \\T\\ Age) - 0(Both) 1c. LOC Commands (Open \\T\\ Closes Eyes/Medical Billing Instructor) - 0(Both) 2. Best Gaze (Lateral Gaze Paresis) - 0(Normal) 3. Visual Field Loss - 0(No visual loss) 4. Facial Palsy - 0(Normal) 5a. Left Arm: Motor (10-second hold) - 0(No drift) 5b. Right Arm: Motor (10-second hold) - 0(No drift) 6a. Left Leg: Motor (5-second hold - always test supine) - 0(No drift) 6b. Right Leg: Motor (5-second hold - always test supine) - 0(No drift) 7. Limb Ataxia (finger/nose \\T\\ heel/philippe - test with eyes open) - 0(Absent) 8. Sensory Loss (pinprick arms/legs/face) - 0(Normal) 9. Best Language: Aphasia (description/naming/reading) - 0(No aphasia) Initials: jm12 Signatures: Dispatcher [employer] EDMS Arti Mccormick RN RN aa5 Cate Acosta RN RN kc6 Annelise Brunner RN RN Ashish Dixon MD MD rt Kenya Carlisle RN RN nj1 Faby Limon Jessica, RN RN jm12 Yancy Abel3 Debbie Chávez oh1 Cate Acosta RN kc6 Corrections: (The following items were deleted from the chart) 18:52 16:30 NIHSS Score: 2 db db 18:52 17:03 NIHSS Score: 2 db db 18:52 17:10 NIHSS Score: 0 db db
--- NOTE | 2024-03-26 18:09 | EDPHYS ---
Physician Documentation [facility] Name: Tahir Alexandre Age: 74 yrs Sex: Male : 1950 Arrival Date: 03/26/2024 Time: 16:12 Bed 4 Private MD: ED Physician Ashish Mirza HPI: 03/26 18:23 This 74 yrs old Male presents to ER via Ambulatory with complaints of Eye Problem - rt blind left. 18:43 Patient presents to the ED with acute onset of left-sided monocular vision loss, rt painless occurring about 30 minutes prior to arrival. Patient was well before that. Denies other neurologic symptoms. States that the vision was completely black with no light sensation. States that it slightly improved to being significantly blurry after arrival to the emergency department. Denies other acute complaints, symptoms are moderate in severity, no other aggravating or alleviating factors.. Historical: - Allergies: 16:20 No Known Allergies; nj1 - Home Meds: 16:37 hydrocodone-acetaminophen 7.5-325 mg Oral tab 1 tab three times a day [Active]; aa5 gabapentin 800 mg Oral tab 1 tab 3 times per day [Active]; methocarbamol 500 mg Oral tab 1 tabs twice a day [Active]; duloxetine 60 mg Oral CDRS 1 cap once daily [Active]; hydrochlorothiazide 12.5 mg oral tablet 3 times per week [Active]; levothyroxine 100 mcg tab 1 tab once daily [Active]; telmisartan 80 mg Oral tab 1 tab once daily [Active]; nebivolol 20 mg oral tablet once [Active]; Vascepa 1 gram Oral cap 2 caps daily [Active]; famotidine 40 mg oral tablet once [Active]; mesalamine 1.2 gram oral tablet, delayed release (enteric coated) 2 tabs twice a day [Active]; atorvastatin 40 mg oral tablet daily [Active]; - PMHx: 16:20 Chronic pain; Hypercholesterolemia; Hypertensive disorder; hyperthyroidism; nj1 - PSHx: 16:20 Cholecystectomy; nj1 - Immunization history:: Client reports receiving the 2nd dose of the Covid vaccine. - Infectious Disease History:: Denies. - Social history:: Smoking status: Patient denies any tobacco usage or history of. - Family history:: not pertinent. ROS: 18:43 Constitutional: Negative for fever, chills, and weight loss, Cardiovascular: Negative rt for chest pain, palpitations, and edema, Respiratory: Negative for shortness of breath, cough, wheezing, and pleuritic chest pain, Abdomen/GI: Negative for abdominal pain, nausea, vomiting, diarrhea, and constipation, MS/Extremity: Negative for injury and deformity, Skin: Negative for injury, rash, and discoloration, Neuro: Negative for headache, weakness, numbness, tingling, and seizure, 18:43 Eyes: Positive for Vision loss, negative for eye pain, Exam: 18:43 Constitutional: This is a well developed, well nourished patient who is awake, alert, rt and in no acute distress. Head/Face: Normocephalic, atraumatic. Chest/axilla: Normal chest wall appearance and motion. Nontender with no deformity. No lesions are appreciated. Cardiovascular: Regular rate and rhythm with a normal S1 and S2. No gallops, murmurs, or rubs. Normal PMI, no JVD. No pulse deficits. Respiratory: Lungs have equal breath sounds bilaterally, clear to auscultation and percussion. No rales, rhonchi or wheezes noted. No increased work of breathing, no retractions or nasal flaring. Abdomen/GI: Soft, non-tender, with normal bowel sounds. No distension or tympany. No guarding or rebound. No evidence of tenderness throughout. Skin: Warm, dry with normal turgor. Normal color with no rashes, no lesions, and no evidence of cellulitis. MS/ Extremity: Pulses equal, no cyanosis. Neurovascular intact. Full, normal range of motion. Neuro: Awake and alert, GCS 15, oriented to person, place, time, and situation. Cranial nerves II-XII grossly intact. Motor strength 5/5 in all extremities. Sensory grossly intact. Cerebellar exam normal. Normal gait. 18:43 Eyes: Complete vision loss on the left, conjunctiva normal, no retinal detachment on bedside ultrasound. 18:43 ECG was reviewed by the Attending Physician. rt Vital Signs: 16:15 BP 111 / 65; Pulse 80; Resp 18; Temp 97.2(O); Pulse Ox 93% ; Weight 108.86 kg; Height 5 nj1 ft. 6 in. ; 17:00 BP 115 / 78; Pulse 78; Resp 16; Pulse Ox 96% on R/A; db 17:30 BP 126 / 72; Pulse 72; Resp 16; Pulse Ox 95% ; db 18:00 BP 129 / 76; Pulse 72; Resp 16; Pulse Ox 95% on R/A; db 19:08 BP 125 / 81; Pulse 71; Resp 14; Temp 98.2; Pulse Ox 95% ; Pain 0/10; jm12 19:27 BP 133 / 80; Pulse 65; Pulse Ox 99% ; jm12 20:00 BP 132 / 79; Pulse 68; Resp 16; Pulse Ox 99% ; Pain 0/10; jm12 21:20 BP 139 / 83; Pulse 72; Resp 16; Pulse Ox 100% ; Pain 0/10; jm12 16:15 Body Mass Index 38.74 (108.86 kg, 167.64 cm) nj1 19:08 Pain Scale: Adult jm12 20:00 Pain Scale: Adult jm12 21:20 Pain Scale: Adult 12 NIH Stroke Scale Scores: 16:40 NIHSS Score: 2 db 17:30 NIHSS Score: 0 db 19:09 NIHSS Score: 0 12 Nasir Coma Score: 17:00 Eye Response: spontaneous(4). Motor Response: obeys commands(6). Verbal Response: db oriented(5). Total: 15. 19:08 Eye Response: spontaneous(4). Motor Response: obeys commands(6). Verbal Response: jm12 oriented(5). Total: 15. 19:27 Eye Response: spontaneous(4). Motor Response: obeys commands(6). Verbal Response: jm12 oriented(5). Total: 15. Procedures: 18:43 Ultrasound: Type: Ocular, performed by the emergency department physician, No vitreous rt hemorrhage, retinal detachment identified. MDM: 16:35 Patient medically screened. rt 18:43 Differential diagnosis: Retinal detachment, CRAO, CVA. Data reviewed: vital signs, rt nurses notes, lab test result(s), EKG, radiologic studies. Consideration of Admission/Observation Patient requires transfer for higher level of care due to severe carotid stenosis. Management of patient was discussed with the following: Rn Surgical: Discussed with accepting neurologist at [facility] I considered the following discharge prescriptions or medication management in the emergency department Medications were administered in the Emergency Department. See MAR. Independent interpretation of the following test(s) in the Emergency Department CT Scan: My interpretation is No intracranial hemorrhage seen on my interpretation of CT scan images. Care significantly affected by the following chronic conditions: Hypertension. Counseling: I had a detailed discussion with the patient and/or guardian regarding the historical points, exam findings, and any diagnostic results supporting the discharge/admit diagnosis, lab results, radiology results, the need to transfer to another facility. Response to treatment: the patient's symptoms have resolved after treatment, Vision returned to baseline after TNKase. 03/26 16:35 Order name: Basic Metabolic Panel; Complete Time: 17:17 rt 03/26 16:35 Order name: CBC with Diff; Complete Time: 17:00 rt 03/26 16:35 Order name: Hepatic Function; Complete Time: 17:17 rt 03/26 16:35 Order name: High Sensitivity Troponin; Complete Time: 17:17 rt 03/26 16:35 Order name: Magnesium; Complete Time: 17:17 rt 03/26 16:35 Order name: Protime (+inr); Complete Time: 17:17 rt 03/26 16:35 Order name: Ptt, Activated; Complete Time: 17:17 rt 03/26 17:05 Order name: Glucose, Ancillary Testing; Complete Time: 17:17 EDMS 03/26 16:35 Order name: CT Stroke Brain w/o Contrast; Complete Time: 17:00 rt 03/26 16:35 Order name: Stroke CXR 1 View; Complete Time: 17:44 rt 03/26 16:38 Order name: CT Neck Angio; Complete Time: 17:44 rt 03/26 17:13 Order name: Head angio; Complete Time: 17:44 EDMS 03/26 16:35 Order name: Accucheck; Complete Time: 16:54 rt 03/26 16:35 Order name: Cardiac monitoring; Complete Time: 16:54 rt 03/26 16:35 Order name: EKG - Nurse/Tech; Complete Time: 16:54 rt 03/26 16:35 Order name: IV Saline Lock; Complete Time: 16:48 rt 03/26 16:35 Order name: Labs collected and sent; Complete Time: 16:48 rt 03/26 16:35 Order name: NPO; Complete Time: 16:54 rt 03/26 16:35 Order name: O2 Per Protocol; Complete Time: 16:48 rt 03/26 16:35 Order name: O2 Sat Monitoring; Complete Time: 16:48 rt 03/26 16:35 Order name: Stroke Swallow Screen; Complete Time: 16:54 rt EC:43 Rate is 77 beats/min. Rhythm is regular, Normal Sinus Rhythm with No ectopy. QRS [place] rt is Normal. HI interval is normal. QRS interval is normal. QT interval is normal. No Q waves. T waves are Normal. No ST changes noted. Interpreted by me. Administered Medications: 16:49 Drug: TNK FOR STROKE - Tenecteplase IV (Administer 10 ml NS flush BEFORE and db AFTER tenecteplase) 0.25 mg/kg IV at per protocol once; MAX DOSE 25 mg, IVP over 5 seconds {Co-Signature: maritza (Cate Acosta RN).} Route: IV; Rate: per protocol; Site: right antecubital; 18:25 Follow up: Response: No adverse reaction; IV Status: Completed infusion db Point of Care Testing: Blood Glucose: 17:05 Blood Glucose: 109 mg/dL; kc6 Ranges: Critical Glucose Levels:Adult <50 mg/dl or >400 mg/dl <40 mg/dl or >180 mg/dl Disposition Summary: 03/26/24 18:08 Transfer Ordered Notes: Transfer Location: [facility] rt Reason: Higher level of care rt Condition: Serious rt Problem: new rt Symptoms: have improved rt Accepting Physician: (03/26/24 21:22) jm12 Diagnosis - Monocular vision loss rt - Acute CVA rt - Severe carotid stenosis rt Forms: - Medication Reconciliation Form rt - SBAR form rt Critical care time excluding procedures: 18:43 Critical care time: Bedside Care: 30 minutes, Consultation: 5 minutes. Total time: 35 rt minutes NIH Stroke Scale - NIH Stroke Score Date: 03/26/2024 Time: 16:40 Total Score = 2 10. Dysarthria (speech clarity - read or repeat words) - 0(Normal) 11. Extinction and Inattention (visual/tactile/auditory/spatial/personal) - 0(No abnormality) 1a. Level of Consciousness (LOC) - 0(Alert) 1b. Level of Consciousness (LOC) (Month \T\ Age) - 0(Both) 1c. LOC Commands (Open \T\ Closes Eyes/Warp Dresser) - 0(Both) 2. Best Gaze (Lateral Gaze Paresis) - 0(Normal) 3. Visual Field Loss - 2(Complete hemianopia) 4. Facial Palsy - 0(Normal) 5a. Left Arm: Motor (10-second hold) - 0(No drift) 5b. Right Arm: Motor (10-second hold) - 0(No drift) 6a. Left Leg: Motor (5-second hold - always test supine) - 0(No drift) 6b. Right Leg: Motor (5-second hold - always test supine) - 0(No drift) 7. Limb Ataxia (finger/nose \T\ heel/philippe - test with eyes open) - 0(Absent) 8. Sensory Loss (pinprick arms/legs/face) - 0(Normal) 9. Best Language: Aphasia (description/naming/reading) - 0(No aphasia) Initials: NIH Stroke Scale - NIH Stroke Score Date: 03/26/2024 Time: 17:30 Total Score = 0 10. Dysarthria (speech clarity - read or repeat words) - 0(Normal) 11. Extinction and Inattention (visual/tactile/auditory/spatial/personal) - 0(No abnormality) 1a. Level of Consciousness (LOC) - 0(Alert) 1b. Level of Consciousness (LOC) (Month \T\ Age) - 0(Both) 1c. LOC Commands (Open \T\ Closes Eyes/Warp Dresser) - 0(Both) 2. Best Gaze (Lateral Gaze Paresis) - 0(Normal) 3. Visual Field Loss - 0(No visual loss) 4. Facial Palsy - 0(Normal) 5a. Left Arm: Motor (10-second hold) - 0(No drift) 5b. Right Arm: Motor (10-second hold) - 0(No drift) 6a. Left Leg: Motor (5-second hold - always test supine) - 0(No drift) 6b. Right Leg: Motor (5-second hold - always test supine) - 0(No drift) 7. Limb Ataxia (finger/nose \T\ heel/philippe - test with eyes open) - 0(Absent) 8. Sensory Loss (pinprick arms/legs/face) - 0(Normal) 9. Best Language: Aphasia (description/naming/reading) - 0(No aphasia) Initials: NIH Stroke Scale - NIH Stroke Score Date: 03/26/2024 Time: 19:09 Total Score = 0 10. Dysarthria (speech clarity - read or repeat words) - 0(Normal) 11. Extinction and Inattention (visual/tactile/auditory/spatial/personal) - 0(No abnormality) 1a. Level of Consciousness (LOC) - 0(Alert) 1b. Level of Consciousness (LOC) (Month \T\ Age) - 0(Both) 1c. LOC Commands (Open \T\ Closes Eyes/Warp Dresser) - 0(Both) 2. Best Gaze (Lateral Gaze Paresis) - 0(Normal) 3. Visual Field Loss - 0(No visual loss) 4. Facial Palsy - 0(Normal) 5a. Left Arm: Motor (10-second hold) - 0(No drift) 5b. Right Arm: Motor (10-second hold) - 0(No drift) 6a. Left Leg: Motor (5-second hold - always test supine) - 0(No drift) 6b. Right Leg: Motor (5-second hold - always test supine) - 0(No drift) 7. Limb Ataxia (finger/nose \T\ heel/philippe - test with eyes open) - 0(Absent) 8. Sensory Loss (pinprick arms/legs/face) - 0(Normal) 9. Best Language: Aphasia (description/naming/reading) - 0(No aphasia) Initials: jm12 Signatures: Dispatcher [employer] EDMS Arti Mccormick, NEGAR RN aa5 Annelise Brunner RN RN db Ashish Mirza MD MD rt Kenya Carlisle RN RN nj1 Zohreh Fu RN RN jm12 Cate Acosta RN kc6 Corrections: (The following items were deleted from the chart) 16:36 16:36 BASIC METABOLIC PANEL+C.LAB.BRZ ordered. EDMS EDMS 16:36 16:36 CBC+H.LAB.BRZ ordered. EDMS EDMS 16:36 16:36 HEPATIC FUNCTION+C.LAB.BRZ ordered. EDMS EDMS 16:36 16:36 Troponin High Sensitivity+C.LAB.BRZ ordered. EDMS EDMS 16:36 16:36 MAGNESIUM+C.LAB.BRZ ordered. EDMS EDMS 16:36 16:36 PROTIME (+INR)+COAG.LAB.BRZ ordered. EDMS EDMS 16:36 16:36 PTT, ACTIVATED+COAG.LAB.BRZ ordered. EDMS EDMS 16:36 16:36 CT-STROKE BRAIN W/O CONTRAST+CT.RAD.BRZ ordered. EDMS EDMS 16:36 16:36 Chest Single View+RAD.RAD.BRZ ordered. EDMS EDMS 16:39 16:39 Neck Angio+CT.RAD.BRZ ordered. EDMS EDMS 21:22 18:08 Dr. rhodes jm12
[2024-03-27 01:38] VITALS: TEMP 98.2
[2024-03-27 01:42] VITALS: BP 139/83; O2SAT 100
--- NOTE | 2024-03-28 17:03 | EKG ---
Test Date: 2024-03-26 Test Time: 16:52:56 Benefit Director: CURTIS MEASUREMENT RESULTS: Intervals: Rate: 77 VT: 168 QRSD: 84 QT: 420 QTc: 475 [place]: P: 65 VT: 168 QRS: 67 T: 76 INTERPRETIVE STATEMENTS: Normal sinus rhythm Normal ECG Compared to ECG 11/08/2021 19:26:35 Sinus bradycardia no longer present Electronically Signed On 03-28-24 16:58:00 CDT by Edgar Cronin
== END 2024-03-26 21:22 | disposition short-term general hospital (02) ==
LOC: ER 16:12
DX: I63.9 Cerebral infarction, unspecified (principal); I65.23 Occlusion and stenosis of bilateral carotid arteries; R29.702 NIHSS score 2; I10 Essential (primary) hypertension
CPT/HCPCS: 96365; 92977; 85025; 80048; 36415; 83735; 85610; 82947; 80076; 85730; 84484; 70496; 70498; 70450; 71045; 99291; 96366; Q9967; J3101; 93005

== ENCOUNTER 2024-04-01 12:43 | Inpatient (IN) | payer OTHER ==
[2024-04-01] MEDS ORDERED: ALBUTEROL INHALER 200 PUFF/6.7 GM IH PRN (17:20)
[2024-04-01] MEDS: FAMOTIDINE 20 MG TAB PO ONE (20:00)
[2024-04-01] MEDS: methocarbamoL 500 MG TAB PO SCH (20:00)
[2024-04-01] MEDS: GABAPENTIN 300 MG CAP PO SCH (20:11)
[2024-04-01] MEDS: ATORVASTATIN 80 MG TAB PO SCH (20:12)
[2024-04-01 20:22] LABS: Specific Gravity 1.029 (1.005-1.030); Sqamous Epithelial None Seen /HPF (None Seen); Urine Bacteria None Seen /HPF (<20); Urine Bilirubin NEGATIVE (Negative); Urine Blood Negative (Negative); Urine Clarity Clear (Clear); Urine Color Yellow (Yellow); Urine Crystals Unidentified Few /HPF (None Seen); Urine Culture Reflex Order NOT NEEDED; Urine Glucose NEGATIVE (Negative); Urine Ketones 2+ (Negative); Urine Micro Reflex YN NO BILL MICROSCOPIC; Urine Mucus Slight /HPF (None Seen); Urine Nitrite NEGATIVE (Negative); Urine Protein 1+ (Negative); Urine RBC <5 /HPF (None Seen); Urine Urobilinogen Normal (Normal); Urine WBC <5 /HPF (<5); Urine pH 5.5 (5.0-7.0)
[2024-04-02] MEDS: HYDROCODONE/APAP 7.5/325 MG TAB PO SCH (01:00)
[2024-04-02] MEDS: LEVOTHYROXINE SOD 0.125 MG TAB PO SCH (06:12)
[2024-04-02 07:15] LABS: Absolute Basophils 0.1 K/uL (0-0.5); Absolute Eosinophils 0.4 K/uL (0-0.5); Absolute Lymphocytes (CBC) 1.6 K/uL (0.7-4.9); Absolute Monocytes 1.2 K/uL (0.1-1.3); Absolute Neutrophil 5.4 K/uL (1.8-8.0); Basophils % 0.8 % (0-1.3); Hematocrit 35.1 % (39.6-49.0); Hemoglobin 12.1 g/dL (13.6-17.9); Lymphocytes % 18.3 % (15.3-44.8); MCH 29.9 pg (27.0-35.0); MCHC 34.3 g/dL (32.0-36.0); MPV 8.8 fL (7.6-11.3); Monocytes % 13.6 % (3.3-12.3); Neutrophils % 62.3 % (41.7-73.7); Nucleated Red Blood Cells % 0.2 % (0-0); Platelets 234 thou/uL (152-406); RBC Red Blood Cell Count 4.03 M/uL (4.33-5.43); Red Cell Distribution Width 13.6 % (12.1-15.2)
[2024-04-02] MEDS: icosapent ethyL 1 GM CAP PO SCH (07:23)
[2024-04-02] MEDS: MESALAMINE 400 MG CAPSULE.DR PO SCH (07:24)
[2024-04-02] MEDS: CLOPIDOGREL 75 MG TABLET PO SCH (07:25)
[2024-04-02] MEDS: TAMSULOSIN 0.4 MG SR CAP PO SCH (07:25)
[2024-04-02] MEDS: DULOXETINE 30 MG CAP PO SCH (07:25)
[2024-04-02] MEDS: POLYETHYL GLY 3350 17 GM/DOSE PO SCH (07:26)
[2024-04-02 07:37] LABS: Albumin 3.4 g/dL (3.4-5.0); Anion Gap 7.4 mEq/L (5.0-15.0); Potassium 3.4 mEq/L (3.5-5.1); Prealbumin 13.7 mg/dL (20-40)
[2024-04-02] MEDS: FAMOTIDINE 20 MG TAB PO SCH (08:38)
[2024-04-02] MEDS ORDERED: POTASSIUM CL SA 10 MEQ TAB PO ONE (11:18)
[2024-04-02] MEDS: POTASSIUM CL SA 10 MEQ TAB PO ONE (11:24)
[2024-04-02] MEDS ORDERED: methocarbamoL 500 MG TAB PO PRN (14:22)
[2024-04-02] MEDS: GABAPENTIN 400 MG CAP PO SCH (20:46)
[2024-04-02] MEDS: APIXABAN 2.5 MG TABLET PO SCH (20:46)
[2024-04-02] MEDS: MAGNESIUM OXIDE 400 MG TAB PO SCH (20:47)
[2024-04-02] MEDS: ENSURE HIGH PROTEIN 237 ML CAN PO SCH (20:47)
--- NOTE | 2024-04-02 21:00 | HP ---
Date of Admission: 04/01/2024 Chief Complaint: "I had a stroke and lost vision. My right side became weak, and I have blocked art emigdio in the neck." History Of Present Illness: Mr. Alexandre is a 74-year-old patient with hypertension, metastatic squam ous neck carcinoma, renal insufficiency, who came to [facility] on March 26 with sudden lo ss of vision, expressive aphasia, and the patient was in the left side. He came to [facility] within 30 minutes of onset of symptoms and was therefore a candidate for thrombolysis as no contra indications were present. Angiogram study of the neck showed near-complete occlusion of his left int ernal carotid artery from its origin to the supraclinoid portion. There is reconstitution via [place]. There is also severe stenosis or occlusion of the distal left vertebral artery. Intracr anially, there were no large vessel occlusions. The MRI of the brain identified multiple acute infar cts throughout the left cerebral hemisphere within the anterior cerebral artery, middle cerebral ernie ry and posterior cerebral artery. There were no hemorrhagic conversion or significant mass effect. The patient was transferred after receiving the treatment to [facility] for higher level of care. There , he was evaluated for possible surgery, but it was determined that surgery would have to await him h ealing after the acute stroke. The plan was to do a bypass surgery from internal carotid artery to e xternal carotid artery and that again was reported outpatient procedure. Following surgery, did have dysphagia, expressive aphasia, and needed aggressive speech therapy along with therapy for his right -sided weakness, incoordination, and decreased sensation. His hemoglobin and hematocrit were slightl y low, potassium is slightly low or requiring monitoring. He was evaluated by the therapy service an d found to require moderate assistance to ambulate 75 feet, minimal assistance for bed mobilization a nd transfers and to perform some activities of daily living. As a result, he was determined to be an appropriate candidate for inpatient rehabilitation to help him return to his prior level of function ing and to reduce the risk of rehospitalization. 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 He had elevated liver functions, metastatic squamous neck cancer. He had gangrenous cholecystitis, status post cholecystectomy, that is laparos copic on 10/24/2021. Allergies: NO KNOWN DRUG ALLERGIES. Medications: [place] 5/325 every 4 hours as needed, Ventolin inhaler 1 puff every 6 hours as needed, E liquis 2.5 mg twice daily, aspirin 81 mg daily, Lipitor 80 mg at bedtime, baclofen 5 mg twice daily, duloxetine 60 mg daily, Pepcid 20 mg twice daily, gabapentin 1200 mg twice daily, Synthroid 0.125 mg daily, magnesium oxide 400 mg twice daily, Delzicol 1200 mg with breakfast, potassium 10 mEq daily, F klaudia 0.4 mg daily. Social History: No alcohol, tobacco, or IV drug use. The patient lives with his . 27 y ears. He was retired and no alcohol, tobacco, or IV drug use. Family History: Noncontributory. Review of Systems: He is mildly depressed because of his situation. Otherwise, some weakness in the right upper and low er extremities and loss of feeling in the right upper and lower extremities. He reports he has had n o constipation. No issues of loose stools. No issues of sleeping and other complaints on a 10-point systems review. Laboratory Studies: White blood cell count 8.7, hemoglobin 12.1, platelets 234. Sodium 137, potassi um 3.4, chloride 108, carbon dioxide 25, BUN 19, creatinine 0.95, glucose 98, calcium 9.3. Magnesium 2.0. Albumin 3.4, prealbumin 13.7. Urinalysis: 2+ ketones, 1+ total protein, otherwise unremarkab le. Current Level Of Functioning: Supervision for eating, oral hygiene. Moderate assistance for toilet hygiene. Showering also moderate assistance. For upper body dressing, contact guard assist. Lower body dressing and donning and doffing footwear, moderate assistance. Rolling [id number] and right -to-left, moderate assistance. For [id number], contact guard assistance. Sitting to lying side of bed, contact guard assistance. [id number] supervision, contact guard assistance. Transferring be d to chair, contact guard assistance. Toileting, contact guard assistance and contact guard assistan ce as he ambulated 75 feet with a rolling walker. Physical Examination: Vital Signs: Blood pressure 139/72 sitting with pulse of 86. While standing, blood pressure 93/57, pulse 101, consistent with some dehydration. Oxygen saturation 95%, respiratory rate 18, temperature 97.2. General: Mr. Alexandre is resting comfortably in bed. HEENT: He is normocephalic, atraumatic. Sclerae anicteric. Oropharynx pink and moist. Neck: Supple. Chest: Clear. Heart: Regular. Extremities: Show no significant clubbing, cyanosis, or edema. Neurological: Right face, arm, and leg decreased sensation to light touch temperature, pinprick. St rength, he is very strong on the right around 4+/5 upper and lower extremities compared to 5/5 on the left. He has slight subtle decrease of the right nasolabial fold with good excursions on smiling. Coordination intact. Reflexes depressed and symmetric. Assessment: Mr. Alexandre is admitted to the inpatient rehabilitation unit with impairment category 01 , stroke. Impairment group code is 01.2, right body involvement, left brain. Etiologic diagnosis: Left internal carotid artery occlusion. Comorbidities are anemia; benign prostatic hypertrophy; decr eased physical functioning; decreased mobility; depression; hypertension; hypokalemia; hyponatremia; obesity, which is class 2. He has BMI of 36 with a weight of 231, height 5 feet 7 inches. Does have some urinary retention, prostate hypertrophy, right-sided weakness and numbness. Plan: 1.He will have physical, occupation, and speech therapy for 3.5 hours, 5 of 7 days. 2.Gabapentin for neuropathic pain. 3.Flomax for prostate hypertrophy. 4.Potassium for low potassium. 5.Baclofen and magnesium for muscle spasms. DVT prophylaxis with Eliquis 2.5 mg twice daily, aspiri n 81 mg daily for stroke risk reduction, Lipitor 80 mg at bedtime for dyslipidemia. Comorbidities That Are Impacting Rehabilitation: He has slight weakness on the right side, incoordin ation with sensory loss as biggest deficits. Does have some depression and may adjust duloxetine. I t is currently 6 mg daily as appropriate. The patient would like to return to his normal functioning and he is reporting perhaps return of functioning 60% to 70% and would like to become 100%, so he ca n be independent, return to all of his prior levels of functioning. There is mild malnutrition, mild hypokalemia. Again, those are being watched closely and he is on supplementation for that. Rehab Specific Plan: Mr. Alexandre will have physical, occupational and speech therapy 3.5 hours, 5 of 7 days to improve his ability to transfer to bed, to chair, to toilet; to perform toileting and show ering; to mobilize more than household distances; up and down several steps, and to mobilize a wheelc hair in addition to performing cognitive functioning all normally. Mr. Alexandre has a good understanding of the process of admission to the inpatient rehabilitation unit , however, he will benefit from physical, occupational, and speech therapy. He will have 24 hours a day, 7 days a week skilled rehabilitation, nursing, daily physician evaluation and management to inte grate his therapy and care in addition to rn social work, evaluation and energy manager for discharge plann ing, home equipment, and followup along with continuing therapy. If need be, additional help from [facility] hospitalist service will be sought. Given his complex medical condition and risk of further compli cations, rehabilitation cannot be safely or effectively performed at a lower level facility [facility]. Barriers To Discharge: Currently, he does not have any significant barriers to his discharge. He is being discharged home to continue therapy. We will have to of course adjust blood pressure medicati ons and have some orthostatics. We will use ANA M hose, abdominal binders, and we will hydrate the pat ient and if need be Florinef and midodrine added. Length Of Stay: About 2-3 weeks. Disposition: Home with family and continue therapy via Home Health. Prognosis: Good. Rehab Specific Goals: 1.Become independent with upper and lower body dressing, donning and doffing of footwear. 2.Independently ambulate 250 feet with a rolling walker. 3.Independently propel a wheelchair 250 feet. 4.Independently go up and down 10 steps with bilateral handrails. 5.Independently perform cognitive functioning. The above goals were reviewed with Mr. Alexandre and he is in agreement along with his family, his . By signing this document, I acknowledge I personally performed a full physical examination on Mr. Natarajan no later than 24 hours after his admission to the inpatient rehabilitation facility and determin ed that he is able to tolerate the above course of treatment at an intensive level for a reasonable p eriod of time. A detailed individualized plan of care for him will be completed by hospital day 4 ba sed on the preadmission screen, history and physical, and therapy evaluations. DARRELL/POLO Voice ID: [id number]
[2024-04-03] MEDS: POTASSIUM CL SA 10 MEQ TAB PO SCH (07:38)
[2024-04-03] MEDS: ASPIRIN 81 MG CHEWABLE TABLET PO SCH (07:38)
[2024-04-04] MEDS: HYDROCODONE/APAP 5/325 MG TAB PO PRN (00:25)
[2024-04-04 10:57] LABS: Absolute Basophils 0.1 K/uL (0-0.5); Absolute Eosinophils 0.3 K/uL (0-0.5); Absolute Lymphocytes (CBC) 1.2 K/uL (0.7-4.9); Absolute Neutrophil 5.1 K/uL (1.8-8.0); Basophils % 1.1 % (0-1.3); Eosinophils % 3.7 % (0-4.4); Hematocrit 35.3 % (39.6-49.0); Hemoglobin 11.8 g/dL (13.6-17.9); Lymphocytes % 15.5 % (15.3-44.8); MCH 29.7 pg (27.0-35.0); MCHC 33.6 g/dL (32.0-36.0); MCV 88.5 fL (80-100); MPV 9.4 fL (7.6-11.3); Monocytes % 13.5 % (3.3-12.3); Neutrophils % 66.2 % (41.7-73.7); Platelets 229 thou/uL (152-406); RBC Red Blood Cell Count 3.98 M/uL (4.33-5.43); Red Cell Distribution Width 13.6 % (12.1-15.2)
[2024-04-04 11:13] LABS: Albumin 3.3 g/dL (3.4-5.0); Anion Gap 10.7 mEq/L (5.0-15.0); Magnesium 2.4 mg/dL (1.6-2.4); Potassium 3.7 mEq/L (3.5-5.1)
[2024-04-04 11:30] LABS: Prealbumin 13.4 mg/dL (20-40)
[2024-04-04] MEDS: BACLOFEN 10 MG TAB PO PRN (14:39)
[2024-04-04] MEDS: NA CHLORIDE 0.9% 1,000 ML IV SCH (16:05)
[2024-04-04] MEDS: MELATONIN 3 MG TABLET PO PRN (19:47)
--- NOTE | 2024-04-04 22:51 | PN ---
Date of Progress Note: 04/04/2024 Time Of Service: 1 p.m. Subjective: Mr. Alexandre is resting comfortably in bed. He is very happy with his therapy so far. Jacob antonio is recovering well and began to ambulate well. Denies any significant complaints. Objective: No fevers, chills, nausea, vomiting, myalgias, arthralgias, rash, headache, weight change , psychiatric complaints. There were, however, some orthostatic changes as he got up and had a low s ystolic drop down to about 80s. He is on midodrine to help with that. Blood pressures did drop with in about 30 to 60 seconds as he began with therapy. Physical Examination: Vital Signs: Blood pressure with orthostatics currently not positive, lying 109/58, pulse 81; sittin g 135/70, pulse 85; and standing 151/60, pulse 106. Respiratory rate 18. Temperature 97.5. Oxygen saturation 95%. Pain did range from 2 to 5. Neurological: Issue of decreased left-sided vision has improved somewhat. He has mild difficulty in his left lower visual quadrant identifying movement of fingers and counting fingers; however, in all other quadrants, vision is doing very well. His right side shows mild weakness, decreased sensation and coordination that is improving. Laboratory Studies: White blood cell count 7.7, hemoglobin 11.8, platelets 229. Sodium 139, potassi um 3.7, chloride 107, carbon dioxide 25, BUN 21, creatinine 0.91, glucose 118. Calcium 9.7, magnesiu m 2.4. Albumin 3.3, prealbumin 13.4. Urinalysis: 2+ ketones, 1+ protein, otherwise unremarkable. X-ray/imaging: No new x-rays or imaging. Medications: [place] 5/325 every 4 hours as needed; Ventolin inhaler 1 puff every 6 hours as needed; E liquis 2.5 mg twice daily; aspirin 81 mg daily; Lipitor 80 mg at bedtime; baclofen 5 mg twice daily, which did help with muscle spasms, which he no longer complains of. He is on duloxetine 60 mg daily; Pepcid 20 mg twice daily; gabapentin 1200 mg twice daily for neuropathy, that is very helpful as wel l; Synthroid 0.125 mg daily for hypothyroidism; magnesium oxide for muscle spasm; [facility]. He is on mesalamine 1200 mg daily; Robaxin 500 mg every 4 hours as needed; potass ium 10 mEq daily; Ensure high protein 237 mL twice daily. Received a liter of sodium chloride becaus e of hypotension and has Flomax 0.4 mg daily. Progress Made With Physical, Occupational, And Speech Therapy: Today, with physical therapy, complet ed wheelchair mobilization 85 feet twice with supervision to standby assistance. He ambulated 5 step s, but did get orthostatic at the time, had to be seated. Attempts were made twice more, but did hav e drops in blood pressure within 30 to 60 seconds. He did complete cal-mn-aputb transfers with conta ct guard assistance. Multiple htlhg-ie-iapuz transfers with contact guard assistance. With occupati onal therapy, the patient did have some deep pressure massage to decrease muscle spasms. Had some di fficulty touching his right thumb to his fifth digit and was worked on. He was evaluated by Speech T jarett with long-term goals of improving short-term memory, working memory, word finding difficulties , and to improve him to independence as he is planned to go back home and to live without assistance. Assessment: Mr. Alexandre is a 74-year-old patient in the rehabilitation unit with a stroke affecting left brain and right body with some weakness, incoordination, and sensory loss. He has gait difficul ties as well. He has decreased mobility, decreased physical functioning, depression, hypertension, h ypothyroidism, hyponatremia, class 2 obesity, urinary retention, dehydration. Plan: 1.Continue with physical, occupational, and speech therapy for 3.5 hours, 5 of 7 days. 2.Continue with gabapentin and Cymbalta for neuropathic pain and depression. Continue with Eliquis 2.5 mg twice daily for DVT risk reduction. Continue with aspirin 81 mg daily for stroke risk reducti on, baclofen as needed for muscle spasms, magnesium for muscle spasms, melatonin for insomnia, [place] sparingly for pain. Receiving a liter of fluid as noted for hypotension, orthostatic. Does have mid odrine 5 mg daily for blood pressure support, Flomax 0.4 mg at night for urinary retention. Comorbidities That Are Impacting Rehabilitation: The patient did have orthostatics and low blood pre ssures; however, he is receiving a liter of fluid and midodrine, which appear to be working and of co urse he has deficits of a stroke, but he is working on improving with all disciplines. DARRELL/MODL Voice ID: [id number] Report ID: [id number]
[2024-04-05] MEDS: MIDODRINE HCL 5 MG TABLET PO SCH (09:27)
--- NOTE | 2024-04-05 21:18 | PN ---
Date of Progress Note: 04/05/2024 Time Of Service: 1:20 a.m. Subjective: Mr. Alexandre is resting in bed in between therapy sessions. He was somewhat sleepy, but was easily aroused and communicated effectively. He denies any worsening weakness on his right side and is happy with his therapy so far. Objective: No fevers, chills, myalgias, arthralgias, rash, or weight change. No psychiatric issues. No other complaints. Physical Examination: Vital Signs: Blood pressure 142/84, pulse of 80. Did not have any significant orthostatic changes. Blood pressure on sitting is 141/86, pulse 87 and on standing 137/71, pulse of 89. Temperature 98.1 . O2 saturation 97%, respiratory rate 16. General: Mr. Alexandre again is resting comfortably. He is in no significant distress. HEENT: He is normocephalic, atraumatic. Sclerae anicteric. Oropharynx moist. Neck: Supple. Chest: Clear. Heart: Regular. Extremities: He has no significant edema or cyanosis. Neurologic: On his right side, 4/5 strength proximally and distally. Decreased sensation to light t ouch and temperature on the right compared to left side. Laboratory Studies: No new laboratory studies from yesterday. X-ray Imaging: No new x-rays. Medications: Medications have been reviewed and are unchanged. Progress Made With Physical, Occupational, And Speech Therapy: Today, with physical therapy, ambulat ed 125 feet twice, another 175 feet twice with contact guard assistance, using a rolling walker. Whe elchair mobilization, 150 feet independently. He ascended and descended 5 steps with bilateral handr ails with contact guard assistance. With occupational therapy, supervision for shower gel, supervisi on with a washcloth to wash his body thoroughly. Did need rest break due to fatigue. Upper and lowe r body dressing done independently. Independent with nonslip socks. With speech, independent recall 2 of 3 unrelated pictures after 3 minutes delay, retrieving the remaining 1 with a semantic cue. Im proved his working memory with 4 units of information during a negation task in 10/10 opportunities. He was able to sequence 4 items by on grabbing words to make a dramatically accurate sentence with 7 % accuracy. He was able to demonstrate word finding with 90% accuracy. Mr. Alexandre is making great progress with his recovery after his stroke affecting the left internal c arotid artery with occlusion and right-sided weakness and incoordination and sensory deficits. Assessment: Mr. Alexandre is a 74-year-old patient in the rehabilitation unit with a left ICA occlusiv e stroke for which he has some right-sided weakness. He is again improving. He has decreased mobili ty, decreased physical functioning, depression, hypertension, hypothyroidism, hyponatremia, class 2 o besity, urinary retention, dehydration. Plan: 1.Continue with physical and occupational therapy for 3.5 hours, 5 of 7 days. 2.He has multiple comorbid medications including the gabapentin and Cymbalta for neuropathic pain, b aclofen for muscle spasms along with magnesium, melatonin for insomnia, and [place] for pain. Flomax f or urinary retention, midodrine to support blood pressure which is doing well. Comorbidities That Are Impacting Rehabilitation: His orthostatics have improved and will still federica nue to be monitored. If need be, additional fluid supplementation and pressor support medications gonzalez ch as Florinef may be added. LB/MODL Voice ID: [id number] Report ID: [id number]
[2024-04-07 06:11] LABS: Absolute Basophils 0.1 K/uL (0-0.5); Absolute Eosinophils 0.4 K/uL (0-0.5); Absolute Lymphocytes (CBC) 1.5 K/uL (0.7-4.9); Absolute Monocytes 0.9 K/uL (0.1-1.3); Basophils % 0.9 % (0-1.3); Eosinophils % 5.5 % (0-4.4); Hematocrit 32.4 % (39.6-49.0); Hemoglobin 11.3 g/dL (13.6-17.9); Lymphocytes % 22.5 % (15.3-44.8); MCH 30.4 pg (27.0-35.0); MCHC 34.8 g/dL (32.0-36.0); MCV 87.2 fL (80-100); MPV 8.8 fL (7.6-11.3); Monocytes % 12.8 % (3.3-12.3); Neutrophils % 58.3 % (41.7-73.7); Platelets 243 thou/uL (152-406); RBC Red Blood Cell Count 3.72 M/uL (4.33-5.43); Red Cell Distribution Width 13.8 % (12.1-15.2)
[2024-04-07 06:47] LABS: Albumin 3.1 g/dL (3.4-5.0); Anion Gap 8.1 mEq/L (5.0-15.0); Magnesium 2.4 mg/dL (1.6-2.4); Potassium 4.1 mEq/L (3.5-5.1); Prealbumin 13.5 mg/dL (20-40)
--- NOTE | 2024-04-07 22:17 | PN ---
Date of Progress Note: 04/07/2024 Time Of Service: 1:10 p.m. Subjective: Mr. Alexandre is resting in bed in between therapy sessions. He is in no distress. He is happy with therapy so far. Review of Systems: Denies any significant pain. Objective: No fevers, chills, nausea, vomiting, myalgias, arthralgias. Physical Examination: Vital Signs: Blood pressure in terms of orthostatics 128/58 and pulse 76 while lying, 131/60 and pul se 89 while sitting, and 128/53 and pulse 99 while standing. Temperature 97.6, oxygen saturation 94% . Respiratory rate 16. General: Again, Mr. Alexandre is resting comfortably. He is in no significant distress. HEENT: Normocephalic, atraumatic. Sclerae anicteric. Oropharynx pink, moist. Neck: Supple. Chest: Clear. Neuro: In terms of his stroke deficits, incoordination in the right upper and lower extremity, mild weakness in the right upper extremity and lower extremity and his left side intact. He does have the left internal carotid artery occlusion and some symptoms of right-sided deficits. Laboratory Studies: White blood cell count 6.8, hemoglobin 11.3, platelets 243. Sodium 139, potassi um 4.1, chloride 106, carbon dioxide 29, BUN 17, creatinine 0.81, glucose 104, calcium 9.7, magnesium 2.4, albumin 3.1, prealbumin 13.5. X-ray/imaging: No new x-rays or imaging. Medications: His medications have been reviewed and remain unchanged. He is on midodrine for pressu re support. His DVT prophylaxis on board. His pain, sleep issues, prostate problems have been addre ssed and has mild shortness of breath. Progress Made With Physical And Occupational Therapy: With physical therapy today, smmier-pj-kat tra nsfers independent, zhe-nj-cvroo transfers independent. Ambulated 35 feet 3 times, 125 feet twice wi th minimum to contact guard assistance. Wheelchair mobilization 175 feet with independence, up and d own 10 steps with bilateral handrails with contact guard assistance and did so 3 times. Regarding oc cupational therapy, did ball tossing 3 sets. No significant change in blood pressure, did feel tired , but recovered after a short rest break. Mr. Alexandre is making good progress with his physical and occupational therapy and is on track for hi s discharge. With speech, he was actually independent recalling 4/4 unrelated pictures, able to reca ll 3 of 4 after 15 minutes and they did have a semantic cue to help. He was able to sequence 4 items in 8/10 opportunities. Assessment: Mr. Alexandre is a 74-year-old patient in the rehabilitation unit with left ICA occlusion producing some right-sided deficits with incoordination, from which he is recovering very well. Ther e are multiple comorbid conditions including decreased mobility, decreased physical functioning, depr ession, hypertension, hypothyroidism, hyponatremia, class 2 obesity, urinary retention, dehydration. These are managed medically and are stable. Plan: 1.Continue with physical, occupational, and speech therapy for 3.5 hours, 5 of 7 days. 2.All comorbid condition medications are continuing including for insomnia, for pain, for blood pres sure support, muscle spasms, prostate hypertrophy. He has urinary retention also being addressed. Comorbidities That Are Impacting Rehabilitation: His comorbid conditions are stably managed and do n ot negatively impact his rehabilitation. DARRELL/MODL Voice ID: [id number] Report ID: [id number]
--- NOTE | 2024-04-08 13:12 | P.RH.PN ---
Estimated Length of Stay: 11 Expected Discharge Date: 04/12/24 Discharge Disposition Plan: Home Family Support: Yes Penitentiary Goal: Mobility, Transfers, Self Care Vital Signs: Last Vital Signs Temp 97.4 F 04/08/24 06:49 Pulse 83 04/07/24 18:45 Resp 18 04/08/24 06:49 BP 132/67 04/07/24 18:45 Pulse Ox 93 04/08/24 06:49 Laboratory: Laboratory Last Values WBC 6.80 thou/uL (4.3-10.9) 04/07/24 05:43 RBC 3.72 M/uL (4.33-5.43) L 04/07/24 05:43 Hgb 11.3 g/dL (13.6-17.9) L 04/07/24 05:43 Hct 32.4 % (39.6-49.0) L 04/07/24 05:43 MCV 87.2 fL (80-100) 04/07/24 05:43 MCH 30.4 pg (27.0-35.0) 04/07/24 05:43 MCHC 34.8 g/dL (32.0-36.0) 04/07/24 05:43 RDW 13.8 % (12.1-15.2) 04/07/24 05:43 Plt Count 243 thou/uL (152-406) 04/07/24 05:43 MPV 8.8 fL (7.6-11.3) 04/07/24 05:43 Neutrophils % 58.3 % (41.7-73.7) 04/07/24 05:43 Lymphocytes % 22.5 % (15.3-44.8) 04/07/24 05:43 Monocytes % 12.8 % (3.3-12.3) H 04/07/24 05:43 Eosinophils % 5.5 % (0-4.4) H 04/07/24 05:43 Basophils % 0.9 % (0-1.3) 04/07/24 05:43 Absolute Neutrophils 4.0 K/uL (1.8-8.0) 04/07/24 05:43 Absolute Lymphocytes 1.5 K/uL (0.7-4.9) 04/07/24 05:43 Absolute Monocytes 0.9 K/uL (0.1-1.3) 04/07/24 05:43 Absolute Eosinophils 0.4 K/uL (0-0.5) 04/07/24 05:43 Absolute Basophils 0.1 K/uL (0-0.5) 04/07/24 05:43 Sodium 139 mEq/L (136-145) 04/07/24 05:43 Potassium 4.1 mEq/L (3.5-5.1) 04/07/24 05:43 Chloride 106 mEq/L (98-107) 04/07/24 05:43 Carbon Dioxide 29 mEq/L (21-32) 04/07/24 05:43 Anion Gap 8.1 mEq/L (5.0-15.0) 04/07/24 05:43 BUN 17 mg/dL (7-18) 04/07/24 05:43 Creatinine 0.81 mg/dL (0.70-1.30) 04/07/24 05:43 Est GFR (CKD-EPI) 92 ml/min (=/>90) 04/07/24 05:43 Glucose 104 mg/dL (74-106) 04/07/24 05:43 Calcium 9.7 mg/dL (8.5-10.1) 04/07/24 05:43 Magnesium 2.4 mg/dL (1.6-2.4) 04/07/24 05:43 Albumin 3.1 g/dL (3.4-5.0) L 04/07/24 05:43 Prealbumin 13.5 mg/dL (20-40) L 04/07/24 05:43 Urine Color Yellow (Yellow) 04/01/24 18:50 Urine Clarity Clear (Clear) 04/01/24 18:50 Urine pH 5.5 (5.0-7.0) 04/01/24 18:50 Ur Specific [place] 1.029 (1.005-1.030) 04/01/24 18:50 Glucose (UA)(Auto) Negative (Negative) 04/01/24 18:50 Urine Ketones 2+ (Negative) H 04/01/24 18:50 Urine Blood Negative (Negative) 04/01/24 18:50 Urine Nitrite Negative (Negative) 04/01/24 18:50 Urine Bilirubin Negative (Negative) 04/01/24 18:50 Urine Urobilinogen Normal (Normal) 04/01/24 18:50 Ur Leukocyte Esterase Negative Flavia/uL (Negative) 04/01/24 18:50 Urine RBC <5 /HPF (None Seen) 04/01/24 18:50 Urine WBC <5 /HPF (<5) 04/01/24 18:50 Ur Squamous Epith Cells None seen /HPF (None Seen) 04/01/24 18:50 U Non-Squamous Epi Cells <5 /HPF (None Seen) 04/01/24 18:50 Unidentified Crystals Few /HPF (None Seen) 04/01/24 18:50 Urine Bacteria None seen /HPF (<20) 04/01/24 18:50 Urine Mucus Slight /HPF (None Seen) 04/01/24 18:50 Urine Culture Reflexed Not needed 04/01/24 18:50 Urine Total Protein 1+ (Negative) H 04/01/24 18:50 Weight: 231 lb 1.6 oz Wound Present: Yes Closed Surgical Incision Present: No Physician Update: Labs reviewed and are stable. BIMS 13. Moderate to severe back pain addressed with multiple modalities. Right sided wealkess and numbness. Improved orthostatic low blood pressure. 4/4 goals with speech and SLUMS 29/30. Still has intermittent BP drops. Easy fatigue with ADLs. 3/4 STG and 0/5 LTG. Comment: linear wound between buttocks (gluteal cleft)- calazime applied Summary: Patient's care plan and terminal makeup operator goals have been reviewed and revised as necessary. Please see the Rehabilitation Signature page for all necessary signatures.
[2024-04-08 19:28] VITALS: BMI 36.1
[2024-04-09 07:44] VITALS: BP 123/72; TEMP 97.7
== END 2024-04-09 10:05 | disposition home health service (06) | DRG 57 ==
LOC: 5TH 16:20
PROVIDERS: ADMIT Psychiatry & Neurology Neurology with Special Qualifications in Child Neurology; ATTEND Psychiatry & Neurology Neurology with Special Qualifications in Child Neurology
DX: I69.351 Hemiplegia and hemiparesis following cerebral infarction affecting right dominant side (principal); E87.1 Hypo-osmolality and hyponatremia; I69.391 Dysphagia following cerebral infarction; I69.320 Aphasia following cerebral infarction; R13.10 Dysphagia, unspecified; E87.6 Hypokalemia; E86.0 Dehydration; R33.8 Other retention of urine; I10 Essential (primary) hypertension; E78.5 Hyperlipidemia, unspecified; E03.9 Hypothyroidism, unspecified; C44.42 Squamous cell carcinoma of skin of scalp and neck; D64.9 Anemia, unspecified; E66.9 Obesity, unspecified; N40.1 Benign prostatic hyperplasia with lower urinary tract symptoms; Z68.36 Body mass index [BMI] 36.0-36.9, adult
CPT/HCPCS: 36415; 80048; 81001; 82040; 83735; 84134; 85025; 87086; 87088; 92523; 97110; 97116; 97124; 97129; 97163; 97165; 97530; 97542; J7030

== ENCOUNTER 2024-04-10 07:10 | Emergency (ER) | payer OTHER ==
[2024-04-10] MEDS ORDERED: ASPIRIN 81 MG CHEWABLE TABLET ONE (07:42)
[2024-04-10] MEDS ORDERED: CLOPIDOGREL 75 MG TABLET ONE (07:42)
[2024-04-10 07:43] LABS: Absolute Basophils 0.1 K/uL (0-0.5); Absolute Eosinophils 0.3 K/uL (0-0.5); Absolute Lymphocytes (CBC) 1.9 K/uL (0.7-4.9); Absolute Monocytes 0.6 K/uL (0.1-1.3); Absolute Neutrophil 4.8 K/uL (1.8-8.0); Hematocrit 35.2 % (39.6-49.0); Hemoglobin 11.8 g/dL (13.6-17.9); Lymphocytes % 24.2 % (15.3-44.8); MCH 29.9 pg (27.0-35.0); MCHC 33.6 g/dL (32.0-36.0); MCV 89.1 fL (80-100); MPV 8.9 fL (7.6-11.3); Monocytes % 7.8 % (3.3-12.3); Platelets 291 thou/uL (152-406); RBC Red Blood Cell Count 3.95 M/uL (4.33-5.43); Red Cell Distribution Width 13.9 % (12.1-15.2)
[2024-04-10] MEDS ORDERED: NA CHLORIDE 0.9% 2,000 ML ONE (07:43)
[2024-04-10] MEDS ORDERED: FOLIC ACID 5 MG/ML VIAL ONE (07:43)
--- NOTE | 2024-04-10 07:46 | RAD REPORT ---
EXAM DESCRIPTION: CT - Head angio - 04/10/2024 7:27 am CLINICAL HISTORY: STROKE ALERT COMPARISON: Ct Stroke Brain Wo Cont dated 04/10/2024; Head angio dated 03/26/2024; Neck Angio dated 03/24; Neck Angio dated 03/26/2024 TECHNIQUE: CT angiography of the head was performed with maximum intensity reformatted images. 3D ma ximum intensity pixel (MIP) reconstructions were created All CT scans are performed using dose optimization technique as appropriate and may include automated exposure control or mA/KV adjustment according to patient size. FINDINGS: Anterior circulation: The left petrous segment of the ICA is occluded proximally but does reconstitute due to collateral fl ow. Both middle cerebral arteries are patent. The anterior cerebral arteries are patent. No aneurysm identified. Posterior circulation: No aneurysm or large vessel occlusion. No hemodynamically significant stenosis. No arteriovenous malf ormation identified. IMPRESSION: Occlusion of the left ICA extends from the neck into the mid left petrous ICA. This is n ew since 03/26/2024. Flow within the distal left petrous ICA and beyond may be from retrograde flow. No other large vessel occlusion identified.
[2024-04-10 07:48] LABS: PT Prothrombin Time 12.2 SECONDS (9.4-12.5); Protime INR 1.09
--- NOTE | 2024-04-10 07:48 | EDPHYS ---
Physician Documentation [facility] Name: Tahir Alexandre Age: 74 yrs Sex: Male : 1950 Arrival Date: 04/10/2024 Time: 07:10 Bed 4 Private MD: ED Physician Feroz Blanchard HPI: 04/10 07:38 This 74 yrs old Male presents to ER via Unassigned with complaints of S/S of [place] Possible Stroke. 07:38 The patient's problem is reported as dysphasia, weakness, in the right upper extremity, [place] in the right lower extremity. Onset: The symptoms/episode began/occurred at 06:00. Duration: This was a single incident, The episode is continuous, resolved on arrival. Context: the episode(s) was witnessed, by family. The symptoms are alleviated by nothing. The symptoms are aggravated by nothing. Associated signs and symptoms: Pertinent positives: confusion, gait abnormality, lightheadedness, nausea. Severity of symptoms: At their worst the symptoms were moderate in the emergency department the symptoms have improved markedly. Patient's baseline: Neuro: alert and fully oriented. The patient has experienced similar episodes in the past, several times. Historical: - Allergies: 07:15 No Known Allergies; mb9 - Home Meds: 07:15 Plavix 75 mg oral tablet [Active]; mb9 - PMHx: 07:15 Chronic pain; Hypercholesterolemia; Hypertensive disorder; hyperthyroidism; mb9 Cerebrovascular accident; - PSHx: 07:15 Cholecystectomy; mb9 - Immunization history:: Adult Immunizations up to date. - Infectious Disease History:: Denies. - Family history:: not pertinent. - Social history:: Smoking status: Patient denies any tobacco usage or history of. ROS: 07:38 Constitutional: Negative for fever, chills, and weight loss, Eyes: Negative for injury, [place]ina pain, redness, and discharge, ENT: Negative for injury, pain, and discharge, Neck: Negative for injury, pain, and swelling, Cardiovascular: Negative for chest pain, palpitations, and edema, Respiratory: Negative for shortness of breath, cough, wheezing, and pleuritic chest pain, Abdomen/GI: Negative for abdominal pain, nausea, vomiting, diarrhea, and constipation, Back: Negative for injury and pain, : Negative for injury, bleeding, discharge, and swelling, Skin: Negative for injury, rash, and discoloration, Psych: Negative for depression, anxiety, suicide ideation, homicidal ideation, and hallucinations, Allergy/Immunology: Negative for hives, rash, and allergies, Endocrine: Negative for neck swelling, polydipsia, polyuria, polyphagia, and marked weight changes, Hematologic/Lymphatic: Negative for swollen nodes, abnormal bleeding, and unusual bruising, 07:38 MS/extremity: Positive for 07:38 MS/extremity: Negative for acute changes, 07:38 Neuro: Positive for weakness, Exam: 07:38 Radiologist reports: see report [place] 07:38 Constitutional: This is a well developed, well nourished patient who is awake, alert, and in no acute distress. Head/Face: Normocephalic, atraumatic. Eyes: Pupils equal round and reactive to light, extra-ocular motions intact. Lids and lashes normal. Conjunctiva and sclera are non-icteric and not injected. Cornea within normal limits. Periorbital areas with no swelling, redness, or edema. ENT: Nares patent. No nasal discharge, no septal abnormalities noted. Tympanic membranes are normal and external auditory canals are clear. Oropharynx with no redness, swelling, or masses, exudates, or evidence of obstruction, uvula midline. Mucous membranes moist. Neck: Trachea midline, no thyromegaly or masses palpated, and no cervical lymphadenopathy. Supple, full range of motion without nuchal rigidity, or vertebral point tenderness. No Meningismus. Chest/axilla: Normal chest wall appearance and motion. Nontender with no deformity. No lesions are appreciated. Cardiovascular: Regular rate and rhythm with a normal S1 and S2. No gallops, murmurs, or rubs. Normal PMI, no JVD. No pulse deficits. Respiratory: Lungs have equal breath sounds bilaterally, clear to auscultation and percussion. No rales, rhonchi or wheezes noted. No increased work of breathing, no retractions or nasal flaring. Abdomen/GI: Soft, non-tender, with normal bowel sounds. No distension or tympany. No guarding or rebound. No evidence of tenderness throughout. Back: No spinal tenderness. No costovertebral tenderness. Full range of motion. Male : Normal genitalia with no discharge or lesions. Skin: Warm, dry with normal turgor. Normal color with no rashes, no lesions, and no evidence of cellulitis. MS/ Extremity: Pulses equal, no cyanosis. Neurovascular intact. Full, normal range of motion. Neuro: Awake and alert, GCS 15, oriented to person, place, time, and situation. Cranial nerves II-XII grossly intact. Motor strength 5/5 in all extremities. Sensory grossly intact. Cerebellar exam normal. Normal gait. Psych: Awake, alert, with orientation to person, place and time. Behavior, mood, and affect are within normal limits. 07:38 ECG was reviewed by the Attending Physician. Vital Signs: 07:15 BP 100 / 83; Pulse 89; Resp 18; Temp 98.1; Pulse Ox 100% ; Weight 87.09 kg; Height 5 mb9 ft. 11 in. ; Pain 0/10; 08:07 BP 119 / 64; Pulse 78; Resp 18; Pulse Ox 100% ; mb9 08:15 BP 115 / 67; Pulse 74; Resp 16; Pulse Ox 99% on R/A; mb9 08:32 BP 108 / 76; Pulse 78; Resp 18; Pulse Ox 100% on R/A; mb9 07:15 Body Mass Index 26.78 (87.09 kg, 180.34 cm) mb9 07:15 Pain Scale: Adult mb9 NIH Stroke Scale Scores: 07:15 NIHSS Score: 0 mb9 07:15 NIHSS Score: 0 mb9 07:51 NIHSS Score: 0 [place] MDM: 07:25 Patient medically screened. [place] 07:43 Data reviewed: vital signs, nurses notes, EMS record, lab test result(s), EKG. [facility] Consideration of Admission/Observation Escalation of care including admission/observation considered. I considered the following discharge prescriptions or medication management in the emergency department Medications were administered in the Emergency Department. See MAR. Independent interpretation of the following test(s) in the Emergency Department EKG: See my EKG interpretation above. Test considered but Not performed: MRI: no mri. Historians other than the Patient: EMS: ems well informed. Care significantly affected by the following chronic conditions: Diabetes, Hypertension, Obesity. 04/10 07:27 Order name: Basic Metabolic Panel [facility] 04/10 07:27 Order name: CBC with Diff 04/10:27 Order name: LFT's [facility] 04/10 07:27 Order name: Magnesium [facility] 08/18 07:27 Order name: NT PRO-BNP [facility] 04/10 07:27 Order name: PT-INR [facility] 04/10 07:27 Order name: Troponin HS [facility] 04/10 07:27 Order name: CRP [facility] 04/10 07:46 Order name: CREATININE WHOLE BLOOD [facility] 04/10 07:51 Order name: Glucose, Ancillary Testing EDNM 04/10 07:21 Order name: Head angio EDNM 04/10 07:21 Order name: Neck Angio EDNM 04/10 07:27 Order name: XRAY Chest (1 view) [facility] 04/10 07:27 Order name: Ct Stroke Brain Wo Cont EDNM 04/10 07:27 Order name: Cardiac monitoring; Complete Time: 08:08 [facility] 04/10 07:27 Order name: EKG - Nurse/Tech; Complete Time: 08:08 [facility] 04/10 07:27 Order name: IV Saline Lock; Complete Time: 08:08 [facility] 04/10 07:27 Order name: Labs collected and sent; Complete Time: 08:08 [facility] 04/10 07:27 Order name: O2 Per Protocol; Complete Time: 08:08 [facility] 04/10 07:27 Order name: O2 Sat Monitoring; Complete Time: 08:08 [facility] EC:38 Rate is 74 beats/min. Rhythm is regular. QRS [place] is Normal. ID interval is normal. QRS [place] interval is normal. QT interval is normal. No Q waves. T waves are Normal. No ST changes noted. Clinical impression: NSR w/ Non-specific ST/T Changes and No evidence of ischemia. Interpreted by me. Reviewed by me. Administered Medications: 07:42 Drug: Aspirin PO Chewable Tablet 81 mg PO once Route: PO; mb9 08:08 Follow up: Response: No adverse reaction mb9 07:42 Drug: Clopidogrel PO 75 mg PO once Route: PO; mb9 08:08 Follow up: Response: No adverse reaction mb9 07:43 Drug: foLIC Acid IVPB 1 mg IVPB once Route: IVPB; Site: right hand; mb9 08:07 Follow up: Response: No adverse reaction; IV Status: Completed infusion mb9 07:45 Drug: NS 0.9% IV 1000 ml IV at 125 ml/hr continuous Route: IV; Rate: 125 ml/hr; Site: mb9 right hand; 08:08 Follow up: Response: No adverse reaction; IV Status: Completed infusion mb9 07:52 Drug: NS 0.9% IV 1000 ml IV at 1 bolus Per protocol; 1000 mL bolus Route: IV; Rate: 1 mb9 bolus; Site: right hand; 08:08 Follow up: Response: No adverse reaction; IV Status: Completed infusion mb9 Disposition Summary: 04/10/24 07:47 Transfer Ordered Notes: Transfer Location: [facility] [place] Reason: Higher level of care [place] Condition: Critical [place] Symptoms: have improved [place] Problem: an acute exacerbation(04/10/24 07:47) [place] Accepting Physician: to marlyn, [facility](04/10/24 08:51) mb9 Diagnosis - Cerebral infarction due to unspecified occlusion or stenosis of left carotid [place] arteries - internal carotid ,left - Aphasia following cerebral infarction [place] Forms: - Medication Reconciliation Form [place] - SBAR form [place] NIH Stroke Scale - NIH Stroke Score Date: 04/10/2024 Time: 07:15 Total Score = 0 10. Dysarthria (speech clarity - read or repeat words) - 0(Normal) 11. Extinction and Inattention (visual/tactile/auditory/spatial/personal) - 0(No abnormality) 1a. Level of Consciousness (LOC) - 0(Alert) 1b. Level of Consciousness (LOC) (Month \T\ Age) - 0(Both) 1c. LOC Commands (Open \T\ Closes Eyes/Wafer Polisher) - 0(Both) 2. Best Gaze (Lateral Gaze Paresis) - 0(Normal) 3. Visual Field Loss - 0(No visual loss) 4. Facial Palsy - 0(Normal) 5a. Left Arm: Motor (10-second hold) - 0(No drift) 5b. Right Arm: Motor (10-second hold) - 0(No drift) 6a. Left Leg: Motor (5-second hold - always test supine) - 0(No drift) 6b. Right Leg: Motor (5-second hold - always test supine) - 0(No drift) 7. Limb Ataxia (finger/nose \T\ heel/philippe - test with eyes open) - 0(Absent) 8. Sensory Loss (pinprick arms/legs/face) - 0(Normal) 9. Best Language: Aphasia (description/naming/reading) - 0(No aphasia) Initials: mb9 NIH Stroke Scale - NIH Stroke Score Date: 04/10/2024 Time: 07:15 Total Score = 0 10. Dysarthria (speech clarity - read or repeat words) - 0(Normal) 11. Extinction and Inattention (visual/tactile/auditory/spatial/personal) - 0(No abnormality) 1a. Level of Consciousness (LOC) - 0(Alert) 1b. Level of Consciousness (LOC) (Month \T\ Age) - 0(Both) 1c. LOC Commands (Open \T\ Closes Eyes/Wafer Polisher) - 0(Both) 2. Best Gaze (Lateral Gaze Paresis) - 0(Normal) 3. Visual Field Loss - 0(No visual loss) 4. Facial Palsy - 0(Normal) 5a. Left Arm: Motor (10-second hold) - 0(No drift) 5b. Right Arm: Motor (10-second hold) - 0(No drift) 6a. Left Leg: Motor (5-second hold - always test supine) - 0(No drift) 6b. Right Leg: Motor (5-second hold - always test supine) - 0(No drift) 7. Limb Ataxia (finger/nose \T\ heel/philippe - test with eyes open) - 0(Absent) 8. Sensory Loss (pinprick arms/legs/face) - 0(Normal) 9. Best Language: Aphasia (description/naming/reading) - 0(No aphasia) Initials: mb9 NIH Stroke Scale - NIH Stroke Score Date: 04/10/2024 Time: 07:51 Total Score = 0 10. Dysarthria (speech clarity - read or repeat words) - 0(Normal) 11. Extinction and Inattention (visual/tactile/auditory/spatial/personal) - 0(No abnormality) 1a. Level of Consciousness (LOC) - 0(Alert) 1b. Level of Consciousness (LOC) (Month \T\ Age) - 0(Both) 1c. LOC Commands (Open \T\ Closes Eyes/Wafer Polisher) - 0(Both) 2. Best Gaze (Lateral Gaze Paresis) - 0(Normal) 3. Visual Field Loss - 0(No visual loss) 4. Facial Palsy - 0(Normal) 5a. Left Arm: Motor (10-second hold) - 0(No drift) 5b. Right Arm: Motor (10-second hold) - 0(No drift) 6a. Left Leg: Motor (5-second hold - always test supine) - 0(No drift) 6b. Right Leg: Motor (5-second hold - always test supine) - 0(No drift) 7. Limb Ataxia (finger/nose \T\ heel/philippe - test with eyes open) - 0(Absent) 8. Sensory Loss (pinprick arms/legs/face) - 0(Normal) 9. Best Language: Aphasia (description/naming/reading) - 0(No aphasia) Initials: [place] Signatures: Dispatcher [employer] EDMS Feroz Blanchard MD MD cha Wilkerson, Guerline Garcia RN RN mb9 Corrections: (The following items were deleted from the chart) 07:27 07:27 BASIC METABOLIC PANEL+C.LAB.BRZ ordered. EDMS EDMS 07:27 07:27 CBC+H.LAB.BRZ ordered. EDMS EDMS 07:27 07:27 HEPATIC FUNCTION+C.LAB.BRZ ordered. EDMS EDMS 07:27 07:27 MAGNESIUM+C.LAB.BRZ ordered. EDMS EDMS 07:27 07:27 PROBNP+C.LAB.BRZ ordered. EDMS EDMS 07:27 07:27 PROTIME (+INR)+COAG.LAB.BRZ ordered. EDMS EDMS 07:27 07:27 Troponin High Sensitivity+C.LAB.BRZ ordered. EDMS EDMS 07:27 07:27 Urinalysis+U.LAB.BRZ ordered. EDMS EDMS 07:27 07:27 Chest Single View+RAD.RAD.BRZ ordered. EDMS EDMS 07:27 07:27 CT-STROKE BRAIN W/O CONTRAST+CT.RAD.BRZ ordered. EDMS EDMS 07:27 07:27 C-REACTIVE PROTEIN+C.LAB.BRZ ordered. EDMS EDMS 07:47 07:47 to nicu, [facility] [place] 07:47 07:47 [facility] [place] 07:49 07:47 to nicu, [facility] [place] 08:51 07:49 to nicu, [facility] mb9
--- NOTE | 2024-04-10 07:48 | ER ---
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 LKW 0600. mb9 Pt has right sided paralysis and aphasia. Initial BP 70/50 and diaphoretic. BGL 171. Pt know at baseline.". No acute neurological deficit is noted. The patients blood glucose was checked before arriving to the hospital and was found to be normal. Initial Sepsis Screen: Does the patient meet any 2 criteria? No. Patient's initial sepsis screen is negative. Does the patient have a suspected source of infection? No. Patient's initial sepsis screen is negative. Risk Assessment: Do you want to hurt yourself or someone else? Patient reports no desire to harm self or others. 07:15 Acuity: SHARLENE 2 mb9 07:15 Coronavirus screen: Vaccine status: Patient reports receiving the 2nd dose of the covid mb9 vaccine. Ebola Screen: Patient denies travel to an Ebola-affected area in the 21 days before illness onset. Onset of symptoms was April 10, 2024. 07:15 Method Of Arrival: EMS: [facility] mb9 Triage Assessment: 07:15 The onset of the patients symptoms was less than three hours ago. General: Appears in mb9 no apparent distress. Behavior is cooperative. 07:15 The onset of the patients symptoms was April 10, 2024 at 06:00. Pain: Denies pain. mb9 EENT: No signs and/or symptoms were reported regarding the EENT system. Neuro: Ojeda Agitation-Sedation Scale (RASS): 0 - Alert and Calm Level of Consciousness is awake, alert, obeys commands, Oriented to person, place, time, situation, Appropriate for age Expediter Service Order are weak bilaterally Moves all extremities. Gait is steady, Speech is normal, Facial symmetry appears normal, Pupils are PERRLA, Intact Reports none. Cardiovascular: Heart tones S1 S2 present Patient's skin is warm and dry. Rhythm is regular. Respiratory: Airway is patent Respiratory effort is even, unlabored, Respiratory pattern is regular, symmetrical, Breath sounds are clear bilaterally. GI: Abdomen is round non-distended, Bowel sounds present X 4 quads. Abd is soft and non tender X 4 quads. : No signs and/or symptoms were reported regarding the genitourinary system. Derm: Skin is intact, is fragile, is thin, Skin is clammy, Skin is pale, Skin temperature is cool. Musculoskeletal: Range of motion: intact in all extremities. Historical: - Allergies: 07:15 No Known Allergies; mb9 - Home Meds: 07:15 Plavix 75 mg oral tablet [Active]; mb9 - PMHx: 07:15 Chronic pain; Hypercholesterolemia; Hypertensive disorder; hyperthyroidism; mb9 Cerebrovascular accident; - PSHx: 07:15 Cholecystectomy; mb9 - Immunization history:: Adult Immunizations up to date. - Infectious Disease History:: Denies. - Family history:: not pertinent. - Social history:: Smoking status: Patient denies any tobacco usage or history of. Screenin:35 Arlene Swallow Protocol Brief Cognitive Screen What is your name? Normal, Where are you mb9 right now? Normal, What year is it? Normal. Oral Mechanism Examination Facial Symmetry: Normal, Motion: Normal, Lip Closure: Normal, Oral Mechanism Result: Normal. 3 oz Water Swallow Challenge: Pt able to drink all water without stopping, coughing, choking or throat clearing: Yes Result: PASS Notified: Feroz Blanchard MD. 07:56 [facility] ED Fall Risk Assessment (Adult) History of falling in the last 3 months, mb9 including since admission Yes- fall prone (multiple falls) (3 pts) Confusion or Disorientation No (0 pts) Intoxicated or Sedated No (0 pts) Impaired Gait No (0 pts) Mobility Assist Device Used No (0 pt) Altered Elimination No (0 pt) Score/Fall Risk Level 0 - 2 = Low Risk Oriented to surroundings, Maintained a safe environment, Educated pt \\T\\ family on fall prevention, incl call for assistance when getting out of bed. Abuse screen: Denies threats or abuse. Nutritional screening: No deficits noted. Tuberculosis screening: No symptoms or risk factors identified. Assessment: 07:08 Reassessment: CODE STROKE CALLED, PT TO CT VIA EMS STRETCHER WITH [facility] BILLS AND EMS hb CREW. 07:15 TNKase (Tenecteplase) Screening: Not Applicable. mb9 07:25 VAN Scoring: Arm Drift: Patients demonstrates NO arm weakness. Patient is VAN Negative. mb9 08:00 Reassessment: No changes from previously documented assessment. Patient and/or family mb9 updated on plan of care and expected duration. Pain level reassessed. Patient is alert, oriented x 3, equal unlabored respirations, skin warm/dry/pink. 08:00 Reassessment: Transfer pending arrival of [facility]. mb9 08:39 Reassessment: Report given to [facility] nurse NEGAR Eason. mb9 Vital Signs: 07:15 BP 100 / 83; Pulse 89; Resp 18; Temp 98.1; Pulse Ox 100% ; Weight 87.09 kg; Height 5 mb9 ft. 11 in. ; Pain 0/10; 08:07 BP 119 / 64; Pulse 78; Resp 18; Pulse Ox 100% ; mb9 08:15 BP 115 / 67; Pulse 74; Resp 16; Pulse Ox 99% on R/A; mb9 08:32 BP 108 / 76; Pulse 78; Resp 18; Pulse Ox 100% on R/A; mb9 07:15 Body Mass Index 26.78 (87.09 kg, 180.34 cm) mb9 07:15 Pain Scale: Adult mb9 NIH Stroke Scale Scores: 07:15 NIHSS Score: 0 mb9 07:15 NIHSS Score: 0 mb9 07:51 NIHSS Score: 0 [place] ED Course: 07:15 Inserted saline lock: 20 gauge in right hand, using aseptic technique. Blood collected. mb9 Flushed with 10 mL NS. 07:20 Patient arrived in ED. hb 07:20 Placed in gown. Bed in low position. Call light in reach. Side rails up X 1. Provided mb9 Education on: press call light if needing anything. Client placed on continuous cardiac and pulse oximetry monitoring. NIBP monitoring applied. cardiac monitor on. 07:20 Door closed. Noise minimized. Warm blanket given. Pillow given. mb9 07:20 Inserted saline lock: 22 gauge in left antecubital area, using aseptic technique. Blood mb9 collected. Flushed with 10 mL NS. 07:25 Feroz Blanchard MD is Attending Physician. [place] 07:29 Head angio In Process Unspecified. EDMS 07:30 Neck Angio In Process Unspecified. EDMS 07:30 EKG done, by ED staff, reviewed by Feroz Blanchard MD. mb9 07:31 Ct Stroke Brain Wo Cont In Process Unspecified. EDMS 07:40 Guerline Fuller, RN is Primary Nurse. mb9 07:51 Triage completed. mb9 07:58 Arm band placed on. mb9 07:59 \\T\\[id number] initiated a transfer with Mylene England from the [facility] eb Center/\\T\\[id number] Arguello the neuro credit administration officer for [facility] with Dr. Blanchard for patient transfer consultation/ \\T\\ [id number] Umana the emergency room physician credit administration officer for [facility] with Dr. Blanchard for patient transfer consultation/ \\[id number]\\[id number] administrative approval given by Mylene England Rn, patient has been accepted to [facility] ED/ Dr. Keyur Umana has accepted the patient in transfer/ report to be called to [phone]/ \\T\\[id number] [facility] called ETA 10 minutes. 07:59 No provider procedures requiring assistance completed. mb9 07:59 Patient transferred, IV remains in place. mb9 08:07 Johnson from [facility] called/ they had an issue with the craft they were sending/ new eb eta 24 minutes. 08:31 XRAY Chest (1 view) In Process Unspecified. EDMS Administered Medications: 07:42 Drug: Aspirin PO Chewable Tablet 81 mg PO once Route: PO; mb9 08:08 Follow up: Response: No adverse reaction mb9 07:42 Drug: Clopidogrel PO 75 mg PO once Route: PO; mb9 08:08 Follow up: Response: No adverse reaction mb9 07:43 Drug: foLIC Acid IVPB 1 mg IVPB once Route: IVPB; Site: right hand; mb9 08:07 Follow up: Response: No adverse reaction; IV Status: Completed infusion mb9 07:45 Drug: NS 0.9% IV 1000 ml IV at 125 ml/hr continuous Route: IV; Rate: 125 ml/hr; Site: mb9 right hand; 08:08 Follow up: Response: No adverse reaction; IV Status: Completed infusion mb9 07:52 Drug: NS 0.9% IV 1000 ml IV at 1 bolus Per protocol; 1000 mL bolus Route: IV; Rate: 1 mb9 bolus; Site: right hand; 08:08 Follow up: Response: No adverse reaction; IV Status: Completed infusion mb9 Medication: 07:57 VIS not applicable for this client. mb9 Outcome: 07:47 ER care complete, transfer ordered by MD. atkinson 08:06 Transferred by helicopter to [facility], [facility], Transfer form completed. mb9 X-rays sent w/ patient. 08:06 Transferred Note: Report given to transferring nurse NEGAR Connelly 08:06 Condition: stable 08:06 Condition: stable 08:06 Instructed on the need for transfer, 08:51 Patient left the ED. mb9 NIH Stroke Scale - NIH Stroke Score Date: 04/10/2024 Time: 07:15 Total Score = 0 10. Dysarthria (speech clarity - read or repeat words) - 0(Normal) 11. Extinction and Inattention (visual/tactile/auditory/spatial/personal) - 0(No abnormality) 1a. Level of Consciousness (LOC) - 0(Alert) 1b. Level of Consciousness (LOC) (Month \\T\\ Age) - 0(Both) 1c. LOC Commands (Open \\T\\ Closes Eyes/Eligibility Consultant) - 0(Both) 2. Best Gaze (Lateral Gaze Paresis) - 0(Normal) 3. Visual Field Loss - 0(No visual loss) 4. Facial Palsy - 0(Normal) 5a. Left Arm: Motor (10-second hold) - 0(No drift) 5b. Right Arm: Motor (10-second hold) - 0(No drift) 6a. Left Leg: Motor (5-second hold - always test supine) - 0(No drift) 6b. Right Leg: Motor (5-second hold - always test supine) - 0(No drift) 7. Limb Ataxia (finger/nose \\T\\ heel/philippe - test with eyes open) - 0(Absent) 8. Sensory Loss (pinprick arms/legs/face) - 0(Normal) 9. Best Language: Aphasia (description/naming/reading) - 0(No aphasia) Initials: mb9 NIH Stroke Scale - NIH Stroke Score Date: 04/10/2024 Time: 07:15 Total Score = 0 10. Dysarthria (speech clarity - read or repeat words) - 0(Normal) 11. Extinction and Inattention (visual/tactile/auditory/spatial/personal) - 0(No abnormality) 1a. Level of Consciousness (LOC) - 0(Alert) 1b. Level of Consciousness (LOC) (Month \\T\\ Age) - 0(Both) 1c. LOC Commands (Open \\T\\ Closes Eyes/Eligibility Consultant) - 0(Both) 2. Best Gaze (Lateral Gaze Paresis) - 0(Normal) 3. Visual Field Loss - 0(No visual loss) 4. Facial Palsy - 0(Normal) 5a. Left Arm: Motor (10-second hold) - 0(No drift) 5b. Right Arm: Motor (10-second hold) - 0(No drift) 6a. Left Leg: Motor (5-second hold - always test supine) - 0(No drift) 6b. Right Leg: Motor (5-second hold - always test supine) - 0(No drift) 7. Limb Ataxia (finger/nose \\T\\ heel/philippe - test with eyes open) - 0(Absent) 8. Sensory Loss (pinprick arms/legs/face) - 0(Normal) 9. Best Language: Aphasia (description/naming/reading) - 0(No aphasia) Initials: mb9 NIH Stroke Scale - NIH Stroke Score Date: 04/10/2024 Time: 07:51 Total Score = 0 10. Dysarthria (speech clarity - read or repeat words) - 0(Normal) 11. Extinction and Inattention (visual/tactile/auditory/spatial/personal) - 0(No abnormality) 1a. Level of Consciousness (LOC) - 0(Alert) 1b. Level of Consciousness (LOC) (Month \\T\\ Age) - 0(Both) 1c. LOC Commands (Open \\T\\ Closes Eyes/Eligibility Consultant) - 0(Both) 2. Best Gaze (Lateral Gaze Paresis) - 0(Normal) 3. Visual Field Loss - 0(No visual loss) 4. Facial Palsy - 0(Normal) 5a. Left Arm: Motor (10-second hold) - 0(No drift) 5b. Right Arm: Motor (10-second hold) - 0(No drift) 6a. Left Leg: Motor (5-second hold - always test supine) - 0(No drift) 6b. Right Leg: Motor (5-second hold - always test supine) - 0(No drift) 7. Limb Ataxia (finger/nose \\T\\ heel/philippe - test with eyes open) - 0(Absent) 8. Sensory Loss (pinprick arms/legs/face) - 0(Normal) 9. Best Language: Aphasia (description/naming/reading) - 0(No aphasia) Initials: [place] Signatures: Dispatcher [employer] Feroz Santoro MD MD cha Baxter, Heather RN RN Addie Mcghee Mary Beth, RN RN mb9 Corrections: (The following items were deleted from the chart) 07:53 07:15 BP 100 / 83; Pulse 89bpm; Resp 18bpm; Pulse Ox 100%; Temp 8F; 87.09 kg; mb9 Height 5 ft. 11 in.; BMI: 26.7; Pain 0/10, Adult; mb9 08:07 07:58 VAN Scoring: Arm Drift: Patients demonstrates NO arm weakness. Patient is mb9 VAN Negative. mb9
--- NOTE | 2024-04-10 07:49 | RAD REPORT ---
EXAM DESCRIPTION: CT - Neck Angio - 04/10/2024 7:28 am CLINICAL HISTORY: STROKE ALERT COMPARISON: Neck Angio dated 03/26/2024; Head C Spine Mpr Wo Con dated 06/01/2022; SOFT TISSUE NECK W C ONTRAST dated 10/26/2012; SOFT TISSUE NECK W CONTRAST dated 04/16/2012 TECHNIQUE: CT angiography of the neck vessels was performed with maximum intensity reformatted image s. CAROTID STENOSIS REFERENCE USING NASCET CRITERIA: Mild - <50% stenosis. Moderate - 50-69% stenosis. Severe - 70-94% stenosis. Near occlusion - 95-99% stenosis. Occluded - 100% stenosis. All CT scans are performed using dose optimization technique as appropriate and may include automated exposure control or mA/KV adjustment according to patient size. FINDINGS: A left aortic arch is identified with normal three vessel configuration of the great vesse ls. No significant flow abnormality is seen of the common carotid bilaterally. 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 This is new from prior. The right ICA is patent. Normal flow is seen within both vertebral arteries. Dominant right vertebral artery. IMPRESSION: Interval development of occlusion of the left ICA just beyond the bulb. The vessel was p reviously near occlusion on the CTA from 03/26/2024. Discussed with Dr. Blanchard by Dr. Briseno at 0745 on 04/10/24
--- NOTE | 2024-04-10 07:52 | RAD REPORT ---
EXAM DESCRIPTION: CT - Ct Stroke Brain Wo Cont - 04/10/2024 7:29 am CLINICAL HISTORY: RT SIDE DEFICITS COMPARISON: Head angio dated 03/26/2024; Ct Stroke Brain Wo Cont dated 03/26/2024 TECHNIQUE: All CT scans are performed using dose optimization technique as appropriate and may inclu de automated exposure control or mA/KV adjustment according to patient size. FINDINGS: No intracranial hemorrhage, hydrocephalus or extra-axial fluid collection.New areas of whi te matter hypoattenuation in the left dc radiata concerning for either an acute or subacute infar ct. The paranasal sinuses and mastoids are clear. The calvarium is intact. IMPRESSION: New left dc radiata patchy infarcts which may be acute or subacute. Conveyed to Dr. Blanchard by Dr. Briseno at 0717 on 04/10/24
[2024-04-10 08:00] LABS: Albumin 3.4 g/dL (3.4-5.0); Albumin/Globulin Ratio 1.1 (1.1-1.8); Anion Gap 6.8 mEq/L (5.0-15.0); Bilirubin Direct 0.3 mg/dL (0-0.2); Bilirubin Indirect, Calculated 0.9 mg/dL (0.2-0.8); Bilirubin Total 1.2 mg/dL (0.2-1.0); C-Reactive Protein 3.08 mg/L (<3.00); Globulin 3.2 g/dL (2.3-3.5); Magnesium 2.4 mg/dL (1.6-2.4); Potassium 3.8 mEq/L (3.5-5.1); Protein, Total 6.6 g/dL (6.4-8.2); Troponin High Sensitivity 14.5 pg/mL (<58.9)
--- NOTE | 2024-04-10 08:40 | RAD REPORT ---
EXAM DESCRIPTION: RAD - Chest Single View - 04/10/2024 8:29 am CLINICAL HISTORY: COUGH COMPARISON: Chest Single View dated 03/26/2024; Chest Pa And Lat (2 Views) dated 04/17/2022; Chest Sing le View dated 10/22/2021; Chest Pa And Lat (2 Views) dated 07/13/2018 FINDINGS: Lines: None. Lungs: Minimal opacities bilaterally likely reflecting atelectasis. Pleural: No significant pleural effusions or pneumothorax. Cardiac: The heart size is within normal limits. Mediastinum: Within normal limits. Bones: No acute fractures. Other: None IMPRESSION: No definite acute cardiopulmonary disease. Likely mild basilar atelectasis.
[2024-04-10 09:21] VITALS: TEMP 98.1
[2024-04-10 09:26] VITALS: BP 108/76; O2SAT 100
--- NOTE | 2024-04-12 17:53 | EKG ---
Test Date: 2024-04-10 Test Time: 07:35:16 [place]: MB MEASUREMENT RESULTS: Intervals: Rate: 74 MD: 156 QRSD: 86 QT: 406 QTc: 450 [place]: P: 29 MD: 156 QRS: 50 T: 64 INTERPRETIVE STATEMENTS: Sinus rhythm with premature supraventricular complexes Otherwise normal ECG Compared to ECG 03/26/2024 16:52:56 Atrial premature complex(es) now present Electronically Signed On 04-12-24 17:48:01 CDT by Delmar Thao
== END 2024-04-10 08:51 | disposition short-term general hospital (02) ==
LOC: ER 07:10
DX: I63.232 Cerebral infarction due to unspecified occlusion or stenosis of left carotid arteries (principal); R29.700 NIHSS score 0; I10 Essential (primary) hypertension; Z86.73 Personal history of transient ischemic attack (TIA), and cerebral infarction without residual deficits; Z79.01 Long term (current) use of anticoagulants
CPT/HCPCS: 96365; 93005; 85025; 80048; 36415; 83735; 85610; 82565; 82947; 80076; 84484; 83880; 86140; 70496; 70498; 70450; 71045; 99285; Q9967; J7030

== ENCOUNTER 2024-04-21 16:18 | Inpatient (IN) | payer OTHER ==
[2024-04-22] MEDS ORDERED: ACETAMINOPHEN 500 MG TAB PO PRN (09:33)
[2024-04-22] MEDS ORDERED: ALBUTEROL INHALER 200 PUFF/6.7 GM IH PRN (10:17)
[2024-04-22] MEDS ORDERED: HYDROCODONE/APAP 7.5/325 MG TAB PO PRN (10:24)
[2024-04-22 11:33] LABS: Absolute Basophils 0.1 K/uL (0-0.5); Absolute Eosinophils 0.4 K/uL (0-0.5); Absolute Lymphocytes (CBC) 1.3 K/uL (0.7-4.9); Absolute Monocytes 0.9 K/uL (0.1-1.3); Absolute Neutrophil 5.1 K/uL (1.8-8.0); Basophils % 1.3 % (0-1.3); Eosinophils % 4.7 % (0-4.4); Hemoglobin 11.2 g/dL (13.6-17.9); Lymphocytes % 16.4 % (15.3-44.8); MCH 29.6 pg (27.0-35.0); MCHC 32.8 g/dL (32.0-36.0); MCV 90.3 fL (80-100); MPV 8.8 fL (7.6-11.3); Monocytes % 11.2 % (3.3-12.3); Neutrophils % 66.4 % (41.7-73.7); Platelets 215 thou/uL (152-406); RBC Red Blood Cell Count 3.76 M/uL (4.33-5.43)
[2024-04-22 11:50] LABS: Albumin 3.2 g/dL (3.4-5.0); Albumin/Globulin Ratio 1.1 (1.1-1.8); Anion Gap 6.3 mEq/L (5.0-15.0); Bilirubin Direct 0.2 mg/dL (0-0.2); Bilirubin Indirect, Calculated 0.6 mg/dL (0.2-0.8); Bilirubin Total 0.8 mg/dL (0.2-1.0); Potassium 4.3 mEq/L (3.5-5.1); Protein, Total 6.2 g/dL (6.4-8.2)
[2024-04-22 12:12] VITALS: BMI 34.9
[2024-04-22] MEDS: NA CHLORIDE 0.9% 1,000 ML IV SCH (14:00)
[2024-04-22] MEDS: GABAPENTIN 300 MG CAP PO SCH (14:34)
[2024-04-22] MEDS: MIDODRINE HCL 5 MG TABLET PO SCH (14:34)
[2024-04-22] MEDS: SENOSIDES 8.6 MG TAB PO SCH (21:00)
[2024-04-22] MEDS: methocarbamoL 500 MG TAB PO SCH (21:02)
[2024-04-22] MEDS: APIXABAN 2.5 MG TABLET PO SCH (21:03)
[2024-04-22] MEDS: ATORVASTATIN 80 MG TAB PO SCH (21:03)
[2024-04-22] MEDS: FAMOTIDINE 20 MG TAB PO SCH (21:03)
[2024-04-22] MEDS: ENSURE ENLIVE 237 ML CAN PO SCH (21:05)
--- NOTE | 2024-04-22 22:21 | HP ---
Date of Admission: 04/22/2024 Time Of Service: 1:10 p.m. Chief Complaint: Stroke, left brain, right body, right-sided weakness. History Of Present Illness: Mr. 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 He was previously admitted to inpatient rehabilita tion for another stroke, did aggressive rehabilitation, did well, and was discharged home. However, after a few days, as noted he did become weaker on the right side and was admitted to the Neuro ICU a t [facility] [place] for further evaluation. MRI on 05/11 showed 2 new ischemic strokes in the left M CA territory. He was treated with heparin, head of bed kept 30 degrees, monitored for intracranial p ressure, and given atorvastatin 80 mg daily, aspirin 81 mg daily, Plavix 71 mg daily, plan for 21 day s. It was noted that prior to the patient's stroke, he actually had planned a bypass procedure and P lavix was held. He of course was treated as the acute stroke. His heparin drip was stopped on 04/13 . He was given pressure support as he had uncontrolled elevated blood pressure and hematuria that wa s addressed as noted by stopping the heparin drip. He had midodrine 5 mg given 3 times daily to main tain blood pressure, Flomax for urinary retention, Synthroid for hypothyroidism, Cymbalta for depress ion and neuropathic pain. I was evaluated by Therapy Service and found to require contact guard assi stance ambulating just 10 feet, was apparently discharged home for insurance and physically worsened. At this point, requires moderate assistance for bed mobilization, uju-te-xjhdy transfers. Mr. Arlin jimenez is only able to take about 3 steps before losing his balance due to lower extremity weakness. Me s medical comorbid conditions are stable and he is now improved and ready to participate in aggressiv e inpatient rehabilitation to reduce the risk of rehospitalization and help him return to his prior l evel of functioning. Past Medical History: Hypertension, dyslipidemia, hypothyroidism, left neck recent surgery for a mas s and status post radiation, stroke on March 26, 2024 and on November 09, 2021. 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 He has LOU, hypertension, renal insufficiency, cholecystitis. He had laparoscopic cholecystectomy. Scans: CT scan of the head without contrast on 03/31 shows new left dc radiata patchy infarcts, may be acute to subacute. CT angiogram of head and neck on 04/10 showed occlusion of the left policy intern al carotid artery extending from the neck into the mid left petrous internal carotid artery. This is new since . Flow within the distal left petrous internal carotid artery and beyond may be from retrograde flow. No other large vessel occlusion identified. Laboratory Studies: White blood cell count 7.7, hemoglobin 11.2, platelets 215. Sodium 139, potassi um 4.3, chloride 107, carbon dioxide 30, BUN 17, creatinine 0.92, glucose 99, calcium 9.5, total bili webster 0.8, direct bilirubin 0.2, AST 23, ALT 42, alkaline phosphatase 57, serum total protein 6.2, al bumin 3.2, globulin 3.0, albumin to globulin ratio is 1.1. Medications: Extra-strength Tylenol 500 mg every 4 hours as needed, Challenge 7.5/325 every 8 hours as n eeded, albuterol nebulizer 1 puff every 6 hours as needed, Eliquis 2.5 mg twice daily, aspirin 81 mg daily, Lipitor 80 mg at bedtime, Cymbalta 60 mg daily, Pepcid 20 mg twice daily, gabapentin 600 mg 3 times daily, Synthroid 0.125 mg daily, mesalamine 1200 mg daily, Robaxin 500 mg twice daily, midodrin e 5 mg 3 times daily, Ensure Enlive 237 mL twice daily, Senokot-S 8.6 mg at bedtime, and Flomax 0.4 m g daily. Family History: Noncontributory. Social History: No alcohol, tobacco, or IV drug use. The patient lives in single family home. Review of Systems: As noted, diffuse weakness more on the right than left. Some mild myalgias, arthralgias. Denies any active rashes. Mildly depressed mood. Otherwise, negative 10-point systems reviewed. Current Level Of Functioning: Setup assistance for eating, supervision for oral hygiene, moderate as sistance for toileting, dependent for showering, maximum assistance for upper and lower body dressing and donning and doffing footwear, moderate assistance for rolling from left to right and right to le ft, for sitting to lying moderate assistance, for lying to sitting on a sliding board moderate assist ance. [id number]-dv-[id number] moderate assistance, going from a bed to chair and to toilet moderate assistance. Ambulation, moderate assistance with rolling walker and therapist mobilizing with the patient cover ing just 3 feet. Wheelchair, he covered 3 feet, moderate assistance. Physical Examination: Vital Signs: Blood pressure 117/62, pulse 82, respiratory rate 18, temperature 97.5, oxygen saturati on 95%. General: Mr. Alexandre is resting comfortably in bed in between therapy sessions. HEENT: He appears normocephalic, atraumatic. Sclerae anicteric. Oropharynx moist. Neck: Supple. Chest: Clear. Heart: Regular. Extremities: No significant clubbing, cyanosis, or edema noted. He does have diffuse weakness in th e lower extremities more on the right than left and decreased to touch and temperature on the right c ompared to the left. He is slow with coordination and requires maximum assistance to begin to ambula te. Rehab And Medical Assessment And Plan: Mr. Alexandre is admitted to the inpatient rehabilitation unit with impairment category 01 stroke. His impairment group code is 01.2, right body involvement, left brain. His etiologic diagnosis is left internal carotid artery occlusion. His comorbidities are eri ign prostatic hypertrophy, decreased mobility, decreased physical functioning, diabetes mellitus, hyp ertension, hypothyroidism, dyslipidemia. Plan: He will have physical, occupational, and speech therapy for 3.5 hours, 5 of 7 days. He will c ontinue aspirin 81 mg daily for stroke risk reduction, Eliquis 2.5 mg twice daily for DVT risk reduct ion, albuterol nebulizer for shortness of breath, Challenge 7.5/325 and Tylenol for pain, Lipitor for dys lipidemia, duloxetine for depression and neuropathic pain, Pepcid for GE reflux, gabapentin for neuro pathic pain, Synthroid for hypothyroidism, Robaxin for muscle spasms, midodrine for pressure support, Ensure Enlive for malnutrition, Senokot for constipation, and Flomax for prostate hypertrophy. Comorbidities That Are Impacting Rehabilitation: As noted, he has diffuse weakness of upper and lowe r extremities, high risk of falling, and therefore, fall precautions adhered to at all times includin g all transfers. Gait belt will be used. The patient will be encouraged to be within the frame of t he walker and therapist at all times and nurses as well will be aggressively helping the patient as h e mobilizes. There is new comorbidities of hypertension and diabetes mellitus, and parameters will b e to hold antihypertensive medications, so if the patient becomes hypotensive, especially with standi ng and mobilizing, abdominal binders and ANA M hose will be applied. Midodrine may be adjusted as he i s prone to have the autonomic dysfunction. Blood sugars also potentially can become very low and blo od sugars will be monitored and if need be D5 half-normal added and additional means to raise blood s ugars will be available. Rehab Specific Plan: Mr. Alexandre will have physical, occupational, and speech therapy to improve his ability to transfer from bed to chair to a wheelchair to a walker to the toilet to the shower and to perform toileting and showering. He will have physical therapy to help with mobilization including with distances that are more than household, over 50 feet and 250 feet around the unit, to go up and down 10 steps with bilateral handrails and mobilize a wheelchair 250 feet. We will have Speech Thera py to help with cognitive issues, to help evaluate swallowing, and to protect airway, to help with dy sarthria and with cognitive issues, to be able to exercise sound judgment and decision making. Mr. Alexandre has a good understanding of the process of admission to the inpatient rehabilitation [facility] and how he will benefit from physical, occupational, and speech therapy. He will have 24 hours a day, 7 days a week skilled rehabilitation and nursing. He will have daily physician evaluation and management for integrating his medical care and physical therapy and occupational therapy and speech therapy services. He will have healthcare social worker evaluation and management for discharge planning, ho fl equipment, physician followup, and to continue with his therapy. If need be, additional help will be sought from the Hospitalist Service Cardiology service, Infectious Disease Service as needed. Barriers To Discharge: Mr. Alexandre has had multiple strokes and is at high risk of additional stroke s and may make it difficult for him to go back home and function without a lot of help. Still, he ma y have to have a stent at [facility] depending on how he is doing in inpatient rehabilitation, b ut the goal is for him to be able to go home and function independently with reducing the risk of ano ther stroke as he had just gone home and had a second stroke. His risk factor modification will be jazmyne chong highly emphasized to reduce the risk of a third stroke. Length Of Stay: About 15 days. Disposition: Home with home health and family. Prognosis: Good. Rehab Goals: 1.Become independent with upper and lower body dressing and donning and doffing of footwear. 2.Independently mobilize a wheelchair 250 feet and walker 250 feet, and go up and down 10 steps with bilateral handrails. 3.Independently perform all cognitive functioning including his safety awareness issues, recalling w valentín to take his medications, and all physician followup and to be able to safely navigate household d istances and activities. The above goals were reviewed with Mr. Alexandre and he is in agreement. By signing this document, I acknowledge I personally performed a full physical examination on Mr. Natarajan no later than 24 hours after his admission to the inpatient rehabilitation facility and determin ed that he is able to tolerate the above course of treatment at an intensive level for a reasonable p eriod of time. A detailed individualized plan of care for him will be completed by hospital day 4 keily mclain on the preadmission screen, history and physical, and therapy evaluations. RUFINO Voice ID: [id number]
[2024-04-23 05:45] LABS: Specific Gravity 1.009 (1.005-1.030); Sqamous Epithelial <5 /HPF (None Seen); Urine Bacteria None Seen /HPF (<20); Urine Bilirubin NEGATIVE (Negative); Urine Blood 2+ (Negative); Urine Clarity Turbid (Clear); Urine Color Light-Yellow (Yellow); Urine Culture Reflex Order REFLEXED; Urine Glucose NEGATIVE (Negative); Urine Ketones NEGATIVE (Negative); Urine Micro Reflex YN NO BILL MICROSCOPIC; Urine Nitrite NEGATIVE (Negative); Urine Protein NEGATIVE (Negative); Urine RBC 21-50 /HPF (None Seen); Urine Urobilinogen Normal (Normal); Urine WBC 20-50 /HPF (<5); Urine pH 6.5 (5.0-7.0)
[2024-04-23 06:19] LABS: Absolute Basophils 0.1 K/uL (0-0.5); Absolute Eosinophils 0.4 K/uL (0-0.5); Absolute Lymphocytes (CBC) 1.4 K/uL (0.7-4.9); Absolute Monocytes 0.7 K/uL (0.1-1.3); Absolute Neutrophil 3.9 K/uL (1.8-8.0); Basophils % 1.4 % (0-1.3); Eosinophils % 6.7 % (0-4.4); Hematocrit 32.5 % (39.6-49.0); Hemoglobin 11.1 g/dL (13.6-17.9); Lymphocytes % 21.1 % (15.3-44.8); MCH 30.3 pg (27.0-35.0); MCV 89.1 fL (80-100); MPV 8.3 fL (7.6-11.3); Monocytes % 11.2 % (3.3-12.3); Neutrophils % 59.6 % (41.7-73.7); Platelets 228 thou/uL (152-406); RBC Red Blood Cell Count 3.65 M/uL (4.33-5.43); Red Cell Distribution Width 14.8 % (12.1-15.2)
[2024-04-23 06:48] LABS: Albumin 2.9 g/dL (3.4-5.0); Anion Gap 6.8 mEq/L (5.0-15.0); Magnesium 2.1 mg/dL (1.6-2.4); Potassium 3.8 mEq/L (3.5-5.1); Thyroid Stimulating Hormone 0.181 uIU/mL (0.358-3.740)
[2024-04-23] MEDS: ASPIRIN EC 81 MG TAB PO SCH (06:53)
[2024-04-23] MEDS: LEVOTHYROXINE SOD 0.125 MG TAB PO SCH (06:53)
[2024-04-23] MEDS: TAMSULOSIN 0.4 MG SR CAP PO SCH (07:46)
[2024-04-23] MEDS: MESALAMINE 400 MG CAPSULE.DR PO SCH (07:47)
[2024-04-23] MEDS: DULOXETINE 30 MG CAP PO SCH (07:48)
[2024-04-24] MEDS: MESALAMINE 400 MG CAPSULE.DR PO SCH (11:00)
[2024-04-24] MEDS: SENOSIDES 8.6 MG TAB PO PRN (20:46)
--- NOTE | 2024-04-26 00:29 | PN ---
Date of Progress Note: 04/25/2024 Time Of Service: 1:50 p.m. Subjective: Mr. Alexandre is resting comfortably in his room in between therapy sessions. He did repo rt some mild pain in the back of his head, localized to the occipital ridge region and not associated with any pain or in the anterior head or in his arms or legs. It was evaluated and identified as oc cipital neuralgia potentially because of the patient resting more unusual on a pillow on the back of his head. He was educated about occipital neuralgia and how to offload that area and help to improve that pain. Objective: Denies any fevers, chills, nausea, vomiting, myalgias, arthralgias, rash, or other issues . His right body weakness and left ICA stroke symptoms have not worsened. Physical Examination: Vital Signs: Blood pressure 119/57, pulse 86 on lying and while sitting 114/62, pulse of 95. His tem perature is 98.0, oxygen saturation 97%, weight 223 pounds, height 5 feet 7 inches, BMI 34.9. General: Mr. Alexandre again is resting comfortably in his bed in between therapy sessions. HEENT: He is normocephalic, atraumatic. Sclerae are anicteric. Oropharynx moist. Neck: Supple. Chest: Clear. Heart: Regular. Extremities: Show significant cyanosis or edema. Neurological: In terms of his neurological examination, his left ICA occlusion has resulted in some right upper and lower extremity weakness, but his ability to mobilize is actually doing very well radha pite that he is overcoming the weakness. He does have some numbness on the left and then the right u pper and lower extremities as well. Laboratory Studies: White blood cell count 6.6, hemoglobin 11.1, platelets are 228. Sodium is 140, potassium 3.8, chloride 108, carbon dioxide 29, BUN 14, creatinine 0.88, magnesium 2.1, calcium 9.3, glucose 98, prealbumin 16. His total cholesterol 113, LDL cholesterol 42, HDL 38, TSH 0.181. Note, his current Synthroid dosage is 0.125, that will be decreased to 0.112 given the very low TSH. Note, urinalysis shows 250 esterase, red blood cells 20-50, white blood cells 20-50, bacteria none seen, b lood 2+. Cultures did grow greater than 100,000 colony-forming units with 4+ qoi-qxhu-kqmunurau stre p sensitivities pending. X-ray Imaging: None. Medications: Flomax 0.4 mg daily, senna 8.6 mg at bedtime, Ensure life 237 mL twice daily, midodrine 5 mg 3 times daily, Robaxin 500 mg twice daily, mesalamine 1200 mg daily, Synthroid now decreased to 0.112 mg daily, gabapentin 600 mg 3 times daily, Pepcid 20 mg twice daily, duloxetine 60 mg daily, L ipitor 80 mg at bedtime, aspirin 81 mg daily, Eliquis 2.5 mg twice daily, albuterol nebulizer every 6 hours as needed, [place] 7.5/325 every 8 hours as needed, regular Tylenol 500 mg every 4 hours. Progress Made With Physical, Occupational, And Speech Therapy: Today, with physical therapy, he was able to ambulate 500 feet with modified independence. Completed stair management 15 steps x2 with andby assistance and wheelchair mobilization 685 and 415 feet with supervision to [facility] ce. With occupational therapy, again mobilized wheelchair from bedroom to shower with supervision, s it-to-stand and wheelchair to grab bars done with supervision. With speech, he is able to name 10 it ems with moderate assistance. Moderate assistance recalling 4/4 unrelated items after 3 minutes and recalled 3 of 4 after 5 minutes. Mr. Alexandre is making excellent progress with his physical, occupational, and speech therapy. His TS H is significantly low. His Synthroid will be decreased. His comorbidities do include the orthostat ic type of blood pressures, which have been well managed with midodrine. Pain also managed, DVT risk reduction is addressed. His neuropathic pain and depression addressed as well. His constipation an d urinary retention has been addressed. Assessment: Mr. Alexandre is a 74-year-old patient in the rehabilitation unit with a stroke in the lef t ICA territory. He has right-sided weakness from which he is recovering well. He does have benign prostatic hypertrophy, decreased mobility, decreased physical functioning, diabetes mellitus, hyperte nsion, hypothyroidism with requirement of adjustment as noted to Synthroid and dyslipidemia. Plan: 1.Continue with physical, occupational, and speech therapy for 3.5 hours, 5 of 7 days. 2.Synthroid has been decreased as noted. 3.Continue Lipitor for dyslipidemia, duloxetine for depression and neuropathic pain, Pepcid for GE r eflux, gabapentin for neuropathic pain, Robaxin for muscle spasms, midodrine for pressure support, En sure Enlive for his mild nutrition. Comorbidities That Are Impacting Rehabilitation: As noted, he has hypothyroidism, medications have b een adjusted. He is doing much better in terms of his mobilization and mitigating his orthostatic ch anges with abdominal binder, ANA M hose as needed. LB/MODL Voice ID: [id number] Report ID: [id number]
[2024-04-26] MEDS: LEVOTHYROXINE SOD 0.112 MG TAB PO SCH (06:59)
--- NOTE | 2024-04-26 21:03 | PN ---
Date of Progress Note: 04/26/2024 Time Of Service: 1:30 p.m. Subjective: Mr. Alexandre is in bed. He denies any significant pain in the posterior head which he di d complaint of somewhat yesterday, but that is less and he thinks his right upper extremity strength is improving, where he has of course the left ICA stroke. Objective: He denies any fevers or chills. No significant myalgias, arthralgias, rash, or weight ch stuart. No other complaints. They are happy with therapy. Physical Examination: Vital Signs: Blood pressure, while lying 147/76, pulse 84; while sitting, 117/58, pulse of 81; and w hile standing, blood pressure 103/51 and pulse of 104. General: He was still able to do his therapy. HEENT: He is again normocephalic, atraumatic. Sclerae anicteric. Oropharynx moist. Neck: Supple. Chest: Clear. Heart: Regular. Extremities: No significant edema, cyanosis, or clubbing. Right side does have 4/5 strength proxima lly and distally upper and lower extremity. Laboratory Studies: No new laboratory studies. X-ray/imaging: No new x-rays or imaging. Medications: Have been reviewed and remained unchanged. Progress Made With Physical, Occupational, And Speech Therapy: With physical therapy, today he was a ble to mobilize a wheelchair 500 feet twice with modified independence. He completed 625 feet standb y assistance to modified independence while ambulating. No signs of orthostasis despite the changes as noted on blood pressure. With occupational therapy, propelled from wheelchair to the gym independ ently. Mcnkir-ni-zze transfers done independently. The patient did work in the kitchen along with e nergy conservation strategies, worked out steps to cooking, one of his favorite breakfast meals and d id so very well. With speech, he did high frequency recalling of words, while scanning with 100% acc uracy. Recalling low-frequency words also with 100% accuracy. Mr. Alexandre is making excellent progress with his recovery of his right side body involvement and lef t internal carotid artery occlusion. He has some pain that is resolved in the back of his head and i s actually doing very well overall. Assessment And Plan: Mr. Alexandre is a 74-year-old patient in the rehabilitation unit with a left ICA territory stroke with some right-sided weakness. Again, he has recovered well. He has prostate hyp ertrophy, decreased mobility, decreased physical functioning, diabetes mellitus, hypertension, hypoth yroidism, and dyslipidemia. Plan: 1.Continue with physical, occupational, and speech therapy for 3.5 hours, 5 of 7 days. 2.He has list of medications to continue including Eliquis 2.5 mg twice daily for DVT risk reduction , aspirin 81 mg daily for stroke risk reduction, Lipitor 80 mg at bedtime for dyslipidemia. He has d uloxetine for depression and for neuropathic pain. [place] also for severe pain. Gabapentin 600 mg 3 times daily for neuropathic pain. He has Synthroid on board. Continue with muscle relaxant, midodri ne for pressor support, Ensure Enlive for malnutrition, Flomax for prostate hypertrophy. Comorbidities That Are Impacting Rehabilitation: At this point, while he did have some orthostasis i n terms of his blood pressure readings, he was not symptomatic and was able to do very well. LB/MODL Voice ID: [id number] Report ID: [id number]
--- NOTE | 2024-04-27 22:18 | PN ---
Date of Progress Note: 04/27/2024 Time Of Service: 1:10 p.m. Subjective: Mr. Alexandre is mobilizing well in his wheelchair. He said the pain in the back of his h ead is improved. It is explained as occipital neuralgia. However, there is a component that has mary arently triggered as the patient sits up and his blood pressure drops and somewhat relieved as he goe s back, but again still a pressure related phenomenon. Objective: No fevers, chills, nausea, vomiting. No myalgias, arthralgias. Right upper extremity st rength slowly improving. Physical Examination: Vital Signs: Blood pressure 137/59, pulse 84, respiratory rate 16, temperature 97.6, oxygen saturati on 97%. Weight 223 pounds, height 5 feet 7 inches, BMI 34.9. General: Mr. Alexandre again is resting in his chair. He is mobilizing well. HEENT: He is normocephalic, atraumatic. Sclerae anicteric. Oropharynx moist. Neck: Supple. Chest: Clear. Extremities: Right upper extremity, he has 4/5 strength proximally and distally as well as lower ext remity on the right side, 5/5 on the left. Laboratory Studies: No new laboratory studies. X-ray/imaging: No new x-rays or imaging. Medications: Medications have been reviewed and remain unchanged. Otherwise, 3 days except his Synt hroid has been decreased as noted 2.112 mg daily. Progress Made With Physical, Occupational, And Speech Therapy: With his physical therapy today, he c ompleted stair management up and down 2 flights of steps, 5 steps up and down. Did get somewhat dizz y as he did that, had to sit back down. He did have a drop in his blood pressure, at lowest was 93/5 2, heart rate 114, still able to don the large compression stockings, thigh-high and abdominal binder . With occupational therapy, performed toileting independently with grab bars, washes hands and sink independently. With his speech, recalled 4/4 unrelated pictures after 5 minutes. It was challenged to recall the information and coleen to the challenge. Mr. Alexandre is making fair overall progress with his physical and occupational therapy, still somewha t limited by the orthostatic hypotension and mild discomfort in the back of his neck. He is on midod rine, the medication is currently 5 mg 3 times a day, may consider 10 in the morning along with 5 at noon and 5 in the evening. Assessment: Mr. Alexandre is a 74-year-old patient, admitted to the rehabilitation unit with left ICA stroke, right-sided paresis, from which he is recovering. He has orthostatic hypotension, prostate h ypertrophy, decreased mobility, decreased physical functioning, diabetes mellitus, hypothyroidism, dy slipidemia. Plan: 1.Continue with physical, occupational, and speech therapy for 3.5 hours, 5 of 7 days. 2.Increase midodrine to 10 during the daytime, 5 and 5 rest of the day, Lipitor 80 mg at bedtime for dyslipidemia, duloxetine for depression and neuropathic pain, gabapentin for neuropathic pain well, Synthroid for hypothyroidism. Comorbidities That Are Impacting Rehabilitation: The patient's orthostatic change is the biggest iss ue which has resulted in prior falls. In addition, his right-sided weakness making it difficult for him to easily and quickly reach the right hand out to nearby objects and hold wall too as he ambulate s. He is again high fall risk, mobilizing much better via wheelchair. LB/MODL Voice ID: [id number] Report ID: [id number]
[2024-04-28 05:42] LABS: Absolute Basophils 0.1 K/uL (0-0.5); Absolute Eosinophils 0.4 K/uL (0-0.5); Absolute Lymphocytes (CBC) 1.5 K/uL (0.7-4.9); Absolute Monocytes 0.8 K/uL (0.1-1.3); Absolute Neutrophil 4.4 K/uL (1.8-8.0); Basophils % 1.1 % (0-1.3); Eosinophils % 5.1 % (0-4.4); Hematocrit 31.1 % (39.6-49.0); Hemoglobin 10.7 g/dL (13.6-17.9); Lymphocytes % 20.8 % (15.3-44.8); MCH 30.5 pg (27.0-35.0); MCHC 34.3 g/dL (32.0-36.0); MCV 88.8 fL (80-100); MPV 8.3 fL (7.6-11.3); Monocytes % 11.6 % (3.3-12.3); Neutrophils % 61.4 % (41.7-73.7); Nucleated Red Blood Cells % 0.1 % (0-0); Platelets 222 thou/uL (152-406); RBC Red Blood Cell Count 3.51 M/uL (4.33-5.43); Red Cell Distribution Width 14.7 % (12.1-15.2)
[2024-04-28 06:12] LABS: Magnesium 2.3 mg/dL (1.6-2.4); Prealbumin 17.3 mg/dL (20-40)
--- NOTE | 2024-04-28 22:21 | PN ---
Date of Progress Note: 04/28/2024 Time Of Service: 1:15 p.m. Subjective: Mr. Alexandre is doing very well. Denies any significant pain in the back of his neck and is doing well. His right side strength is improving slowly, and he is mobilizing well around the un it both with wheelchair and with a walker. Review of Systems: Denies any significant fevers, chills, nausea, vomiting, myalgias, arthralgias. No rash and again pa in in the back of his head is improving. Physical Examination: Vital Signs: Blood pressure 153/77, pulse 80, while lying; 125/56, 98 pulse on sitting; and 124/58 w ith 106 pulse while standing. Respiratory rate 16 to 18, temperature 97.4, oxygen saturation 94%. General: Mr. Alexandre is doing well. HEENT: He is normocephalic, atraumatic. Sclerae anicteric. Oropharynx moist. Neck: Supple. Chest: Clear. Extremities: Right side strength is 4/5 proximally and distally and that is upper and lower extremit ies. Laboratory Studies: White blood cell count 7.1, hemoglobin 10.7, platelets 222. Sodium 141, potassi um 4.0, chloride 108, carbon dioxide 29, BUN 22, creatinine 0.93, glucose 100, calcium 9.3. Magnesiu m 2.3. Albumin 3.0, prealbumin 17.3. Leukocyte esterase 250, red blood cells 21-50, white blood lynnette ls 20-50, turbid clarity, 2+ blood. X-ray/imaging: No x-rays or imaging. Medications: Medications have been reviewed and are unchanged. Progress Made With Physical, Occupational, And Speech Therapy: Today with physical therapy, supine-t o-sit transfers done independently. Multiple [id number]-vu-[id number] transfers with wheelchair, standby assista nce. He ambulated 250 feet and 400 feet with contact guard assistance using a rolling walker and mob ilized wheelchair 250 feet independently. With speech, recalled 4/4 unrelated pictures after 5 minut es without cues on the first attempt. With his occupational therapy, he mobilized wheelchair and travel from bedroom to shower independentl y, performed shower transfers, [id number]-[id number] technique independently and retrieved clothes from clos et and was able to don and doff clothes independently after his shower was done. Mr. Alexandre is making great progress with physical, occupational, and speech therapy and will be read y for discharge home in 2 days. Assessment: Mr. 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 He has or thostatic hypotension which is improved. He has prostate hypertrophy, decreased mobility, decreased physical functioning, diabetes mellitus, hypothyroidism, dyslipidemia. Plan: 1.Continue with physical, occupational, and speech therapy for 3.5 hours, 5 of 7 days. 2.Continue with midodrine as noted. Continue with Lipitor for dyslipidemia, duloxetine for depressi on, gabapentin for neuropathic pain, Synthroid for hypothyroidism, and adjustment was made with that and he is offloading the posterior neck where there are some occipital neuralgia symptoms. Comorbidities That Are Impacting Rehabilitation: He has orthostatic changes that have been mitigated well. He is doing very well. Abdominal binders, ANA M hose, and midodrine in place that will continu e as the patient is discharged home. DARRELL/POLO Voice ID: [id number] Report ID: [id number]
--- NOTE | 2024-04-29 13:31 | P.RH.PN ---
Estimated Length of Stay: 11 Expected Discharge Date: 04/30/24 Discharge Disposition Plan: Home Family Support: Yes Senior Living Goal: Mobility, Transfers, Self Care Vital Signs: Last Vital Signs Temp 97.7 F 04/29/24 07:08 Pulse 82 04/29/24 07:08 Resp 12 04/29/24 09:17 BP 163/81 H 04/29/24 07:08 Pulse Ox 95 04/29/24 09:17 Laboratory: Laboratory Last Values WBC 7.10 thou/uL (4.3-10.9) 04/28/24 05:24 RBC 3.51 M/uL (4.33-5.43) L 04/28/24 05:24 Hgb 10.7 g/dL (13.6-17.9) L 04/28/24 05:24 Hct 31.1 % (39.6-49.0) L 04/28/24 05:24 MCV 88.8 fL (80-100) 04/28/24 05:24 MCH 30.5 pg (27.0-35.0) 04/28/24 05:24 MCHC 34.3 g/dL (32.0-36.0) 04/28/24 05:24 RDW 14.7 % (12.1-15.2) 04/28/24 05:24 Plt Count 222 thou/uL (152-406) 04/28/24 05:24 MPV 8.3 fL (7.6-11.3) 04/28/24 05:24 Neutrophils % 61.4 % (41.7-73.7) 04/28/24 05:24 Lymphocytes % 20.8 % (15.3-44.8) 04/28/24 05:24 Monocytes % 11.6 % (3.3-12.3) 04/28/24 05:24 Eosinophils % 5.1 % (0-4.4) H 04/28/24 05:24 Basophils % 1.1 % (0-1.3) 04/28/24 05:24 Absolute Neutrophils 4.4 K/uL (1.8-8.0) 04/28/24 05:24 Absolute Lymphocytes 1.5 K/uL (0.7-4.9) 04/28/24 05:24 Absolute Monocytes 0.8 K/uL (0.1-1.3) 04/28/24 05:24 Absolute Eosinophils 0.4 K/uL (0-0.5) 04/28/24 05:24 Absolute Basophils 0.1 K/uL (0-0.5) 04/28/24 05:24 Sodium 141 mEq/L (136-145) 04/28/24 05:24 Potassium 4.0 mEq/L (3.5-5.1) 04/28/24 05:24 Chloride 108 mEq/L (98-107) H 04/28/24 05:24 Carbon Dioxide 29 mEq/L (21-32) 04/28/24 05:24 Anion Gap 8.0 mEq/L (5.0-15.0) 04/28/24 05:24 BUN 22 mg/dL (7-18) H 04/28/24 05:24 Creatinine 0.93 mg/dL (0.70-1.30) 04/28/24 05:24 Est GFR (CKD-EPI) 86 ml/min (=/>90) L 04/28/24 05:24 Glucose 100 mg/dL (74-106) 04/28/24 05:24 Calcium 9.3 mg/dL (8.5-10.1) 04/28/24 05:24 Magnesium 2.3 mg/dL (1.6-2.4) 04/28/24 05:24 Total Bilirubin 0.8 mg/dL (0.2-1.0) 04/22/24 11:25 Direct Bilirubin 0.2 mg/dL (0-0.2) 04/22/24 11:25 Indirect Bilirubin 0.6 mg/dL (0.2-0.8) 04/22/24 11:25 AST 23 U/L (15-37) 04/22/24 11:25 ALT 42 U/L (16-61) 04/22/24 11:25 Alkaline Phosphatase 57 U/L (45-117) 04/22/24 11:25 Serum Total Protein 6.2 g/dL (6.4-8.2) L 04/22/24 11:25 Albumin 3.0 g/dL (3.4-5.0) L 04/28/24 05:24 Globulin 3.0 g/dL (2.3-3.5) 04/22/24 11:25 Albumin/Globulin Ratio 1.1 (1.1-1.8) 04/22/24 11:25 Prealbumin 17.3 mg/dL (20-40) L 04/28/24 05:24 Triglycerides 165 mg/dL (<150) H 04/23/24 06:03 Cholesterol 113 mg/dL (<200) 04/23/24 06:03 LDL Cholesterol, Calc 42 mg/dL (<130) 04/23/24 06:03 HDL Cholesterol 38 mg/dL (40-60) L 04/23/24 06:03 Cholesterol/HDL Ratio 2.97 04/23/24 06:03 TSH 0.181 uIU/mL (0.358-3.740) L 04/23/24 06:03 Urine Color Light-yellow (Yellow) 04/23/24 04:50 Urine Clarity Turbid (Clear) H 04/23/24 04:50 Urine pH 6.5 (5.0-7.0) 04/23/24 04:50 Ur Specific [place] 1.009 (1.005-1.030) 04/23/24 04:50 Glucose (UA)(Auto) Negative (Negative) 04/23/24 04:50 Urine Ketones Negative (Negative) 04/23/24 04:50 Urine Blood 2+ (Negative) H 04/23/24 04:50 Urine Nitrite Negative (Negative) 04/23/24 04:50 Urine Bilirubin Negative (Negative) 04/23/24 04:50 Urine Urobilinogen Normal (Normal) 04/23/24 04:50 Ur Leukocyte Esterase 250 [place]/uL (Negative) H 04/23/24 04:50 Urine RBC 21-50 /HPF (None Seen) H 04/23/24 04:50 Urine WBC 20-50 /HPF (<5) H 04/23/24 04:50 Ur Squamous Epith Cells <5 /HPF (None Seen) 04/23/24 04:50 U Non-Squamous Epi Cells <5 /HPF (None Seen) 04/23/24 04:50 Urine Bacteria None seen /HPF (<20) 04/23/24 04:50 Urine Culture Reflexed Reflexed 04/23/24 04:50 Urine Total Protein Negative (Negative) 04/23/24 04:50 Weight: 223 lb Wound Present: No Closed Surgical Incision Present: No Negative Pressure Wound Therapy Present: No Physician Update: Labs reviewed and are stable. Pain is managed. Orthostatic hypotention is managed better with midodrine. SBA with transfers and bed mobility. RW 500' with CGA. To go home with [facility] health. SLUMS 26, poor word retreval. Only 5 minutes of standing before leg shaking starts. Summary: Patient's care plan and manager intermediate goals have been reviewed and revised as necessary. Please see the Rehabilitation Signature page for all necessary signatures.
[2024-04-30 12:44] VITALS: BP 142/72; TEMP 97.8
== END 2024-04-30 13:15 | disposition home health service (06) | DRG 57 ==
LOC: 5TH 04-22 09:10
PROVIDERS: ADMIT Psychiatry & Neurology Neurology with Special Qualifications in Child Neurology; ATTEND Psychiatry & Neurology Neurology with Special Qualifications in Child Neurology
DX: I69.351 Hemiplegia and hemiparesis following cerebral infarction affecting right dominant side (principal); I10 Essential (primary) hypertension; J44.9 Chronic obstructive pulmonary disease, unspecified; G47.33 Obstructive sleep apnea (adult) (pediatric); R33.9 Retention of urine, unspecified; E03.9 Hypothyroidism, unspecified; F32.A Depression, unspecified; E78.5 Hyperlipidemia, unspecified; N40.0 Benign prostatic hyperplasia without lower urinary tract symptoms; E11.9 Type 2 diabetes mellitus without complications; K59.00 Constipation, unspecified; K21.9 Gastro-esophageal reflux disease without esophagitis; I95.1 Orthostatic hypotension
CPT/HCPCS: 36415; 80048; 80053; 80061; 81001; 82040; 82248; 83735; 84134; 84443; 85025; 87077; 87086; 87088; 87186; 92523; 97110; 97116; 97129; 97162; 97165; 97530; 97542; J3535